=== PATIENT | female | born 1975 | race Caucasian/White ===

== ENCOUNTER 2018-04-28 15:48 | Day surgery (SDC) | payer OTHER ==
[~2018-04-28] VITALS: Ht 172.7 cm; Wt 96.2 kg
[~2018-04-28 15:48] MED LIST: DESV100T
[2018-04-28 16:00] VITALS: BP 161/81
--- OUTSIDE RECORDS SUMMARY | 2018-04-28 16:49 | XMS REPORT | Continuity of Care Document ---
Author Author [facility] Address Unknown Phone Unavailable Allergies Active Description Code Type Severity Reaction Onset Reported/Identified Relationship to Patient Clinical Status Yes Keflex Drug Allergy N/A N/A 04/20/2009 Yes lisinopril Drug Allergy N/A N/A 11/09/2010 Medications There is no data. Problems Date Dx Coded Attending Type Code Diagnosis Diagnosed By 04/20/2009 LUCAS VARELA DDS 296.90 EPISODIC MOOD DISORDERS 04/20/2009 LUCAS VARELA DDS 626.4 irregular length of menstrual periods 04/20/2009 LUCAS VARELA DDS 780.79 feelings of weakness 04/20/2009 YAMILETH FERRERA MD 296.90 EPISODIC MOOD DISORDERS 04/20/2009 YAMILETH FERRERA MD 626.4 irregular length of menstrual periods 04/20/2009 YAMILETH FERRERA MD 780.79 feelings of weakness 06/12/2009 LUCAS VARELA DDS 280.9 ANEMIA HYPOCHROMIC / MICROCYTIC 06/12/2009 LUCAS VARELA DDS 626.6 heavy bleeding between periods (metrorrhagia) 06/12/2009 LUCAS VARELA DDS V72.31 Pelvic Exam (Internal) 06/12/2009 YAMILETH FERRERA MD 280.9 ANEMIA HYPOCHROMIC / MICROCYTIC 06/12/2009 YAMILETH FERRERA MD 626.6 heavy bleeding between periods (metrorrhagia) 06/12/2009 YAMILETH FERRERA MD V72.31 Pelvic Exam (Internal) 07/11/2009 LUCAS VARELA DDS 401.1 ESSENTIAL HYPERTENSION BENIGN 07/11/2009 LUCAS VARELA DDS V72.84 visit for: preoperative exam 07/11/2009 YAMILETH FERRERA MD 401.1 ESSENTIAL HYPERTENSION BENIGN 07/11/2009 YAMILETH FERRERA MD V72.84 visit for: preoperative exam 05/17/2010 NICHOLE DDS, LUCAS B 381.81 EUSTACHIAN TUBE DYSFUNCTION 05/17/2010 NICHOLE DDS, LUCAS B 780.4 DIZZINESS AND VERTIGO 05/17/2010 NICHOLE DDS, LUCAS B 786.50 CHEST PAIN 05/17/2010 YAMILETH FERRERA MD 381.81 EUSTACHIAN TUBE DYSFUNCTION 05/17/2010 YAMILETH FERRERA MD 780.4 DIZZINESS AND VERTIGO 05/17/2010 YAMILETH FERRERA MD 786.50 CHEST PAIN 08/06/2010 NICHOLE DDS, LUCAS B 784.0 HEADACHE 08/06/2010 YAMILETH FERRERA MD 784.0 HEADACHE 10/03/2010 NICHOLE DDS, LUCAS B 527.5 SIALOLITHIASIS 10/03/2010 YAMILETH FERRERA MD 527.5 SIALOLITHIASIS 10/09/2010 NICHOLE DDS, LUCAS B V68.1 ISSUE OF REPEAT PRESCRIPTIONS 10/09/2010 YAMILETH FERRERA MD V68.1 ISSUE OF REPEAT PRESCRIPTIONS 04/25/2013 NICHOLE BIGGSS, LUCAS B 251.2 HYPOGLYCEMIA 04/25/2013 YAMILETH FERRERA MD 251.2 HYPOGLYCEMIA 01/16/2014 YAMILETH FERRERA MD 681.10 UNSPECIFIED CELLULITIS AND ABSCESS OF TOE 01/16/2014 YAMILETH FERRERA MD V06.1 TDAP DX Procedures Code [place] [address] ROUTINE VENIPUNCTURE 04/25/2013 29140 CBC 04/26/2013 5383794 GFR CALC (RESULT ONLY) 04/26/2013 80660 CMP 04/26/2013 16739 XRAY FOOT LEFT COMP MIN 3 VIEWS 01/16/2014 JERRY BEST 01/23/2014 Results Test Result Range CBC - 11/11/17 17:18 WHITE BLOOD CELL COUNT 12.0 Thousand/uL 3.8-10.8 RED BLOOD CELL COUNT 4.25 Million/uL 3.80-5.10 HEMOGLOBIN 14.1 g/dL 11.7-15.5 HEMATOCRIT 39.8 % 35.0-45.0 MCV 93.6 fL 80.0-100.0 MCH 33.2 pg 27.0-33.0 MCHC 35.4 g/dL 32.0-36.0 RDW 12.3 % 11.0-15.0 PLATELET COUNT 210 Thousand/uL 140-400 MPV 11.6 fL 7.5-12.5 ABSOLUTE NEUTROPHILS 8100 cells/uL 7221-2414 ABSOLUTE LYMPHOCYTES 2844 cells/uL 850-3900 ABSOLUTE MONOCYTES 960 cells/uL 200-950 ABSOLUTE EOSINOPHILS 60 cells/uL 15-500 ABSOLUTE BASOPHILS 36 cells/uL 0-200 NEUTROPHILS 67.5 % NRG LYMPHOCYTES 23.7 % NRG MONOCYTES 8.0 % NRG EOSINOPHILS 0.5 % NRG BASOPHILS 0.3 % NRG TSH - 11/11/17 17:18 TSH 1.52 mIU/L NRG LIPID PANEL - 11/17/17 12:47 CHOLESTEROL, TOTAL 173 mg/dL <200 HDL CHOLESTEROL 42 mg/dL >50 TRIGLYCERIDES 77 mg/dL <150 LDL-CHOLESTEROL 114 mg/dL (calc) NRG CHOL/HDLC RATIO 4.1 (calc) <5.0 NON HDL CHOLESTEROL 131 mg/dL (calc) <130 A1C - 11/17/17 12:47 HEMOGLOBIN A1c 4.5 % of total Hgb <5.7 CULTURE, GENITAL - 04/01/18 13:18 CULTURE, GENITAL SEE NOTE NRG Encounters ACCT No. Visit Date/Time Discharge Status Pt. Type Provider Facility Loc./Unit Complaint [id number] 01/16/2014 14:59:00 01/16/2014 23:59:59 CLS Outpatient SINGER FOSTER, YAMILETH Boykin [id number] 05/04/2013 15:06:00 05/04/2013 23:59:59 CLS Outpatient LUCAS VARELA DDS [id number] 02/02/2018 09:00:00 02/02/2018 23:59:59 CLS Outpatient YARI FORD [facility] [place] [id number] 04/01/2018 13:20:00 Document Registration [id number] 11/17/2017 12:20:00 Document Registration [id number] 11/11/2017 17:00:00 Document Registration
[2018-04-28] MEDS ORDERED: FLU QUADRIvalent (5+ YOA) 2018-2019 (AFLURIA) 0.5 ML IM ONE (17:15)
[2018-04-28 17:46] LABS: HEMOGLOBIN 9.4 G/DL (11.5-16.0)
--- NOTE | 2018-04-28 17:51 | Consultation ---
History of Present Illness History of Present Illness Patient Consulted On(chantell/time) 04/28/18 17:47 Date Seen by Provider: Apr 28, 2018 Time Seen by Provider: 17:05 Reason for Visit: epigastric discomfort with heartburn, followed by melena and dizziness History of Present Illness Reasonably healthy lady with hypertension controlled with resultant, developed epigastric discomfort and heartburn 24 hours ago, followed by melena and a feeling of dizziness. She sought medical evaluation this morning and was found to have anemia with a hemoglobin around 10 g and Hemoccult positive stools. She is therefore being admitted for further evaluation and monitoring. She reports substernal discomfort and has a family history of colon cancer in her father. Allergies and Home Medications Allergies Coded Allergies: cephalexin (Verified Allergy, Intermediate, rash, 04/28/18) latex (Unverified Allergy, Intermediate, HIVES AND SWELLING, 07/06/09) Patient Home Medication List Home Medication List Reviewed: Yes Past Iyvakks-Aaffeg-Cquvkq Hx Patient Social History Alcohol Use: Denies Use Recreational Drug Use: No Smoking Status: Never a Smoker Recent Foreign Travel: No Contact w/Someone Who Travel: No Recent Infectious Disease Expo: No Recent Hopitalizations: No Seasonal Allergies Seasonal Allergies: Yes Past Medical History Surgeries: Yes Respiratory: Yes Chronic Bronchitis Currently Using CPAP: No Currently Using BIPAP: No Neurological: No Reproductive Disorders: Yes (HYPERMENORRHEA, METROMENORRHAGIA, ANEMIA) Female Reproductive Disorders: Denies Sexually Transmitted Disease: No HIV/AIDS: No Genitourinary: No Gastrointestinal: No Musculoskeletal: No HEENT: No Cancer: No Anxiety, Depression Integumentary: No Blood Disorders: No Family Medical History NEROFIBROMATOUS 19 MOTHER Neoplasm 19 FATHER (INTESTINAL CA AND LUNG CA) Review of Systems-General Constitutional: dizziness, weakness Respiratory: no symptoms reported Cardiovascular: see HPI Gastrointestinal: see HPI Genitourinary: no symptoms reported Musculoskeletal: no symptoms reported Skin: no symptoms reported Psychiatric/Neurological: No Symptoms Reported Physical Exam-General Problems Physical Exam Vital Signs Vital Signs - First Documented 04/28/18 16:00 Temp 99.7 Pulse 92 Resp 18 B/P (MAP) 161/81 (107) Pulse Ox 98 O2 Delivery Room Air Capillary Refill : General Appearance: no apparent distress Respiratory: lungs clear Cardiovascular: regular rate, rhythm Gastrointestinal: non tender, soft Rectal: deferred Neurologic/Psychiatric: alert, oriented x 3 Skin: warm/dry Assessment/Plan Assessment/Plan Admission Diagnosis/Plan continue with epigastric discomfort melena and rectal bleeding. Anemia possibly of GI blood loss. Family history of colon cancer. Reasonable to perform upper endoscopy with colonoscopy during the hospital admission. Should her hemoglobin be less than 7 g, transfusion would be required and I have made her aware of this. Admission Status: Observation Clinical Quality Measures DVT/VTE Risk/Contraindication: Risk Factor Score Per Nursin RFS Level Per Nursing on Admit: 1=Low/No VTE PPX MATILDE AVALOS MD Apr 28, 2018 17:51
[2018-04-28 18:03] LABS: BUN/CREATININE RATIO 27; CARBON DIOXIDE 19 MMOL/L (21-32); CHLORIDE 109 MMOL/L (98-107); CREATININE SERUM 0.73 MG/DL (0.60-1.30); GFR ESTIMATED > 60; GLUCOSE 94 MG/DL (70-105); POTASSIUM 3.5 MMOL/L (3.6-5.0); SODIUM 137 MMOL/L (135-145)
[2018-04-28] MEDS: MAGNESIUM CITRATE 300 ML BTL PO NR (18:20)
[2018-04-28] MEDS ORDERED: CATHETER FLUSH 10 ML SYR IV PRN (18:45)
[2018-04-28 18:46] LABS: HEMOGLOBIN 9.3 G/DL (11.5-16.0); MEAN PLATELET VOLUME 12.1 FL (7.4-10.4); RED BLOOD COUNT 2.83 10^6/uL (4.35-5.85); RED CELL DISTRIBUTION WIDTH 12.6 % (10.0-14.5); WHITE BLOOD COUNT 11.3 10^3/uL (4.3-11.0)
[2018-04-28] MEDS: NS W/KCL 20 MEQ/L 1,000 ML IV SCH (19:30)
[2018-04-28 19:35] VITALS: BP 133/67
[2018-04-29 00:04] VITALS: BP 140/67
[2018-04-29 04:06] VITALS: BP 123/60
[2018-04-29] MEDS: NS W/KCL 20 MEQ/L 1,000 ML IV SCH ×2 (05:54→16:04)
[2018-04-29] MEDS: MAGNESIUM CITRATE 300 ML BTL PO NR ×2 (06:13→16:04)
[2018-04-29] MEDS ORDERED: KCL 20 MEQ TAB (K-DUR) PO NR (07:45)
[2018-04-29 08:00] VITALS: BP 126/65
--- NOTE | 2018-04-29 08:21 | Progress Note (SOAP) ---
Subjective Date Seen by a Provider: Apr 29, 2018 Time Seen by a Provider: 08:00 Subjective/Events-last exam bowel prep in preparation. Stools are dark. Hemoglobin decreased to 9.3 g. Hemodynamics stable. Minimal epigastric pain. Review of Systems General: Fatigue HEENT: No Head Aches, No Eye Pain, No Ear Pain, No Dysphasia, No Sinus Congestion, No Post Nasal Drip, No Sore Throat Pulmonary: No Dyspnea, No Cough, No Pleuritic Chest Pain Cardiovascular: No: Chest Pain, Palpitations, Orthopnea, Paroxysmal Noc. Dyspnea, Edema, Lt Headedness Gastrointestinal: Melena Genitourinary: No Dysuria, No Frequency, No Incontinence, No Hematuria, No Retention Musculoskeletal: No: other, neck pain, shoulder pain, arm pain, back pain, hand pain, leg pain, foot pain Neurological: No: Weakness, Numbness, Incoordination, Change in speech, Confusion, Seizures, Other Objective Exam Vital Signs Date Time Temp Pulse Resp B/P (MAP) Pulse Ox O2 Delivery O2 Flow Rate FiO2 04/29/18 04:06 98.3 82 17 123/60 (81) 98 Room Air 04/29/18 00:04 99.1 77 18 140/67 (91) 99 Room Air 04/28/18 21:00 98 Room Air 04/28/18 19:35 98.0 93 18 133/67 (89) 98 Room Air 04/28/18 17:08 98 Room Air 04/28/18 16:00 99.7 92 18 161/81 (107) 98 Room Air I & O 04/29/18 07:00 Intake Total 750 ml Output Total 200 ml Balance 550 ml Capillary Refill : General Appearance: No Apparent Distress Neck: Normal Inspection Respiratory: Lungs Clear Gastrointestinal: non tender, soft Extremity: Normal Inspection Neurologic/Psychiatric: Alert, Oriented x3 Skin: Warm/Dry Results Lab Laboratory Tests 04/28/18 17:37: White Blood Count 11.3H, Red Blood Count 2.83L, Hemoglobin 9.3L, Hematocrit 27L , Mean Corpuscular Volume 95, Mean Corpuscular Hemoglobin 33, Mean Corpuscular Hemoglobin Concent 35, Red Cell Distribution Width 12.6, Platelet Count 167, Mean Platelet Volume 12.1H, Sodium Level 137, Potassium Level 3.5L, Chloride Level 109H, Carbon Dioxide Level 19L, Anion Gap 9, Blood Urea Nitrogen 20H, Creatinine 0.73, Estimat Glomerular Filtration Rate > 60, BUN/Creatinine Ratio 27, Glucose Level 94, Calcium Level 9.0 Assessment/Plan Assessment/Plan Assess & Plan/Chief Complaint continue with epigastric discomfort melena and rectal bleeding. Anemia possibly of GI blood loss. Family history of colon cancer. Reasonable to perform upper endoscopy with colonoscopy during the hospital admission. Should her hemoglobin be less than 7 g, transfusion would be required and I have made her aware of this. lady with a history of melena and anemia due to blood loss. Hemodynamics stable. Family history of colon cancer. 4 EGD with colonoscopy tomorrow ; reasonable to start proton pump inhibitors in view of melena Final Diagnosis GI bleeding with anemia Clinical Quality Measures DVT/VTE Risk/Contraindication: Risk Factor Score Per Nursin RFS Level Per Nursing on Admit: 1=Low/No VTE PPX MATILDE AVALOS MD Apr 29, 2018 08:21
[2018-04-29] MEDS: PANTOPRAZOLE 40 MG (PROTONIX) VIAL IV SCH ×2 (08:51→20:24)
[2018-04-29] MEDS ORDERED: ACETAMINOPHEN 500 MG TAB (TYLENOL) PO PRN (09:00)
[2018-04-29] MEDS ORDERED: LOSA50TA7 PO (09:03)
[2018-04-29] MEDS ORDERED: NAPR220T66 PO (09:03)
[2018-04-29] MEDS ORDERED: ESCI10TA PO (09:03)
[2018-04-29] MEDS ORDERED: ACET-2267 PO (09:03)
[2018-04-29 12:00] VITALS: BP 126/58
[2018-04-29] MEDS ORDERED: ACETAMINOPHEN 325 MG TABLET PO PRN (12:15)
--- NOTE | 2018-04-29 12:16 | History & Physicial (CHS) ---
HPI History of Present Illness: This is a 42 yo female who was seen at [facility] by Lilian Olea APRN on 04/28/18. Pt reports that Thursday she began noticing black, tarry stools. Pt had a near- syncopal episode on Thursday. Pt has had issues with constipations for the past 2 years but no prior issues with GI bleeding. Pt was seen yesterday and noted to have heme positive stools and HB was 10.0. Pt also admits to epigastric pain. Pt was admitted for observation and surgical consultation due to symptomatic anemia and melena. Date seen by provider: Apr 29, 2018 Time Seen by Provider: 09:10 Attending Physician Kashmir Humphries DO [facility] [place] Consult Date of Admission Apr 28, 2018 at 15:48 Home Medications Home Medications Reviewed patient Home Medication Reconciliation performed by pharmacy medication reconciliations communications engineering technician and/or nursing. Patients Allergies have been reviewed. Allergies Coded Allergies: cephalexin (Verified Allergy, Intermediate, rash, 04/28/18) latex (Unverified Allergy, Intermediate, HIVES AND SWELLING, 07/06/09) LSC-Exeixg-Pbgfmz Hx Patient Social History Alcohol Use: Denies Use Recreational Drug Use: No Smoking Status: Never a Smoker Recent Foreign Travel: No Contact w/other who traveled: No Recent Hopitalizations: No Recent Infectious Disease Expo: No Physical Abuse Screen: No Sexual Abuse: No Past Medical History HTN Anxiety s/p REBECA for menorrhagia s/p tubal ligation s/p EGD in Family Medical History Family History: NEROFIBROMATOUS 19 MOTHER Neoplasm 19 FATHER (INTESTINAL CA AND LUNG CA) Review of Systems ([facility]) Constitutional: see HPI Reviewed Test Results Reviewed Test Results Lab Laboratory Tests 04/28/18 17:37: White Blood Count 11.3H, Red Blood Count 2.83L, Hemoglobin 9.3L, Hematocrit 27L , Mean Corpuscular Volume 95, Mean Corpuscular Hemoglobin 33, Mean Corpuscular Hemoglobin Concent 35, Red Cell Distribution Width 12.6, Platelet Count 167, Mean Platelet Volume 12.1H, Sodium Level 137, Potassium Level 3.5L, Chloride Level 109H, Carbon Dioxide Level 19L, Anion Gap 9, Blood Urea Nitrogen 20H, Creatinine 0.73, Estimat Glomerular Filtration Rate > 60, BUN/Creatinine Ratio 27, Glucose Level 94, Calcium Level 9.0 Physical Exam-(CHC) Physical Exam Vital Signs VS - Last 72 Hours, by Label 04/28/18 04/28/18 04/28/18 04/28/18 16:00 17:08 19:35 21:00 Temp 99.7 98.0 Pulse 92 93 Resp 18 18 B/P (MAP) 161/81 (107) 133/67 (89) Pulse Ox 98 98 98 98 O2 Delivery Room Air Room Air Room Air Room Air 04/29/18 04/29/18 00:04 04:06 Temp 99.1 98.3 Pulse 77 82 Resp 18 17 B/P (MAP) 140/67 (91) 123/60 (81) Pulse Ox 99 98 O2 Delivery Room Air Room Air Capillary Refill : General Appearance: WD/WN, no apparent distress HEENT: PERRL/EOMI Respiratory: chest non-tender, lungs clear, normal breath sounds Cardiovascular: regular rate, rhythm Gastrointestinal: other (mild ttp LLQ) Neurologic/Psychiatric: alert, normal mood/affect, oriented x 3 Assessment/Plan Assessment/Plan Admission Status: Observation Assessment & Plan 1. Melena with epigastric abdominal pain - Patient directly admitted for observation - Surgical consultation by Dr. Morgan who recommends EGD/Colonoscopy. Bowel prep underway, plan for procedures 04/30/18 - PPI started 2. Symptomatic anemia - likely acute GI blood loss - baseline Hb 10/2017 14.1 - Hb on admission 9.3 3. Near syncopal episode - likely secondary to #1 & 2 Clinical Quality Measures DVT/VTE Risk/Contraindication: Risk Factor Score Per Nursin RFS Level Per Nursing on Admit: 1=Low/No VTE PPX KASHMIR HUMPHRIES DO Apr 29, 2018 12:16
[2018-04-29] MEDS ORDERED: NON-FORMULARY MEDICATION 1 EA EA (Escitalopram Oxalate (Lexapro) 10 MG) PO SCH (12:30)
[2018-04-29 16:28] VITALS: BP 129/61
[2018-04-29 19:37] VITALS: BP 130/65
[2018-04-30 00:55] VITALS: BP 120/58
[2018-04-30] MEDS: NS W/KCL 20 MEQ/L 1,000 ML IV SCH ×2 (01:25→11:18)
[2018-04-30 04:01] VITALS: BP 121/58
[2018-04-30 05:51] LABS: BASOPHILS % (AUTO) 0 % (0-10); EOSINOPHILS % (AUTO) 1 % (0-10); HEMATOCRIT 25 % (35-52); HEMOGLOBIN 8.2 G/DL (11.5-16.0); LYMPHOCYTES # (AUTO) 1.4 X 10^3 (1.0-4.0); LYMPHOCYTES % (AUTO) 23 % (12-44); MEAN CORPUSCULAR HEMOGLOBIN 32 PG (25-34); MEAN CORPUSCULAR HGB CONC 34 G/DL (32-36); MEAN CORPUSCULAR VOLUME 97 FL (80-99); MEAN PLATELET VOLUME 12.1 FL (7.4-10.4); MONOCYTES # (AUTO) 0.5 X 10^3 (0.0-1.0); MONOCYTES % (AUTO) 9 % (0-12); NEUTROPHILS # (AUTO) 3.9 X 10^3 (1.8-7.8); NEUTROPHILS % (AUTO) 67 % (42-75); PLATELET COUNT 108 10^3/uL (130-400); RED BLOOD COUNT 2.54 10^6/uL (4.35-5.85); RED CELL DISTRIBUTION WIDTH 12.9 % (10.0-14.5); WHITE BLOOD COUNT 5.8 10^3/uL (4.3-11.0)
[2018-04-30 08:00] VITALS: BP 128/61
[2018-04-30 08:52] LABS: CALCIUM 8.4 MG/DL (8.5-10.1); CARBON DIOXIDE 18 MMOL/L (21-32); CHLORIDE 115 MMOL/L (98-107); CREATININE SERUM 0.61 MG/DL (0.60-1.30); GFR ESTIMATED > 60; GLUCOSE 86 MG/DL (70-105); POTASSIUM 4.2 MMOL/L (3.6-5.0); SODIUM 139 MMOL/L (135-145)
[2018-04-30] MEDS ORDERED: NON-FORMULARY MEDICATION 1 EA EA (Losartan Potassium 50 MG) PO SCH (09:00)
[2018-04-30] MEDS ORDERED: NON-FORMULARY MEDICATION 1 EA EA (Escitalopram Oxalate (Lexapro) 10 MG) PO SCH (09:00)
[2018-04-30 09:06] LABS: BUN/CREATININE RATIO 11
[2018-04-30] MEDS: PANTOPRAZOLE 40 MG (PROTONIX) VIAL IV SCH ×2 (09:16→20:51)
[2018-04-30] MEDS ORDERED: OMEP40CA36 PO (11:14)
[2018-04-30] MEDS ORDERED: FERR-65 PO (11:14)
--- NOTE | 2018-04-30 11:16 | Discharge Summary ---
Diagnosis/Chief Complaint Date of Admission Apr 28, 2018 at 15:48 Date of Discharge May 01, 2018 Admission Diagnosis Admission Diagnosis 1. Melena with epigastric abdominal pain 2. Symptomatic anemia - likely acute GI blood loss 3. Near syncopal episode - likely secondary to #1 & 2 Discharge Diagnosis 1. Melena with epigastric abdominal pain - Patient directly admitted for observation - Surgical consultation by Dr. Morgan who recommends EGD/Colonoscopy. Bowel prep underway, plan for procedures 04/30/18 - PPI started 2. Symptomatic anemia - likely acute GI blood loss - baseline Hb 10/2017 14.1 - Hb on admission 9.3 - Hb on DC stable at 8.4 3. Near syncopal episode - likely secondary to #1 & 2 4. Multiple petechia and erosions along the stomach . 3 mm acute erosion with oozing in the first part of the duodenum - rx for PPI and carafate 5. Colon polyps - lesion at the cecum concerning for villous adenoma -schedule for colon resection next week. Chief Complaint/HPI Chief Complaint/HPI This is a 42 yo female who was seen at [facility] by Lilian Olea APRN on 04/28/18. Pt reports that Thursday she began noticing black, tarry stools. Pt had a near- syncopal episode on Thursday. Pt has had issues with constipations for the past 2 years but no prior issues with GI bleeding. Pt was seen yesterday and noted to have heme positive stools and HB was 10.0. Pt also admits to epigastric pain. Pt was admitted for observation and surgical consultation due to symptomatic anemia and melena. Discharge Summary-OBS Procedures EGD/Colonoscopy 04/30/18: EGD: Multiple petechia and erosions along the stomach . 3 mm acute erosion with oozing in the first part of the duodenum Colonoscopy: 1. 3 mm pedunculated polyp along the descending colon, that was snared and retrieved. 2. A sessile lesion at the cecum, occupying at least three fourths of the circumference, having the appearance of a villous adenoma. A few biopsies were obtained in the area was tattooed with Julieth ink, for identification during resection. She tolerated the procedures well and was taken to the recovery room in a stable condition. Impression: GI bleeding. Family history of colon cancer. Sessile lesion of the cecum, possibly a villous adenoma. This will require formal right hemicolectomy, that will be scheduled for next week. Descending colon polyp excised. Consultations Discharge Physical Examination Allergies: Coded Allergies: cephalexin (Verified Allergy, Intermediate, rash, 04/28/18) latex (Unverified Allergy, Intermediate, HIVES AND SWELLING, 07/06/09) Vitals & I&Os Intake and Output 04/30/18 00:00 Intake Total 2996 ml Output Total 1400 ml Balance 1596 ml Vital Sign - Last 12Hours Date Time Temp Pulse Resp B/P (MAP) Pulse Ox O2 Delivery O2 Flow Rate FiO2 04/30/18 08:00 99.3 77 20 128/61 (83) 99 Room Air General Appearance: Alert, Oriented X3, Cooperative Psych/Mental Status: Mood NL Hospital Course Labs Laboratory Tests 04/30/18 05:36: White Blood Count 5.8, Red Blood Count 2.54L, Hemoglobin 8.2L, Hematocrit 25L, Mean Corpuscular Volume 97, Mean Corpuscular Hemoglobin 32, Mean Corpuscular Hemoglobin Concent 34, Red Cell Distribution Width 12.9, Platelet Count 108L, Mean Platelet Volume 12.1H, Neutrophils (%) (Auto) 67, Lymphocytes (%) (Auto) 23 , Monocytes (%) (Auto) 9, Eosinophils (%) (Auto) 1, Basophils (%) (Auto) 0, Neutrophils # (Auto) 3.9, Lymphocytes # (Auto) 1.4, Monocytes # (Auto) 0.5, Eosinophils # (Auto) 0.0, Basophils # (Auto) 0.0, Sodium Level 139, Potassium Level 4.2, Chloride Level 115H, Carbon Dioxide Level 18L, Anion Gap 6, Blood Urea Nitrogen 7, Creatinine 0.61, Estimat Glomerular Filtration Rate > 60, BUN/ Creatinine Ratio 11, Glucose Level 86, Calcium Level 8.4L Discharge Instructions to patient/family Discharge [facility] Discharge Medications New, Converted or Re-Newed RX: Transmitted to Pharmacy ([facility]) New Medications: Ferrous Sulfate (Feosol) 325 Mg Tablet 325 MG PO BID, #60 TAB 0 Refills Omeprazole (Omeprazole) 40 Mg Capsule.dr 40 MG PO DAILY, #30 CAP 0 Refills Sucralfate (Sucralfate) 1 Gm Tablet 1 GM PO TID, #90 TAB 0 Refills Continued Medications: Acetaminophen (Tylenol Extra Strength) 500 Mg Tablet 500-1000 MG PO Q6H PRN for PAIN-MILD, TAB Escitalopram Oxalate (Lexapro) 10 Mg Tablet 10 MG PO DAILY, TAB LAST FILLED #30 03-03-18 Losartan Potassium (Losartan Potassium) 50 Mg Tablet 50 MG PO DAILY, TAB LAST FILLED #30 03-03-18 Discontinued Medications: Naproxen Sodium (Aleve) 220 Mg Tablet 220-440 MG PO Q8H PRN for PAIN-MILD, TAB Patient Instructions Goal/Follow Up Appt: Follow up with Lilian Olea APRN 05/11/18 11:20am Activity & Diet Discharge Diet: Other Diet (high fiber diet) Orders-Post D/C & Referrals Pneu Vac Indicated: Yes Discharge Medications Reviewed and agree with Discharge Medication list on patient's Discharge Instruction sheet Clinical Quality Measures DVT/VTE Risk/Contraindication: Risk Factor Score Per Nursin RFS Level Per Nursing on Admit: 1=Low/No VTE PPX KASHMIR HUMPHRIES DO Apr 30, 2018 11:16
[2018-04-30 12:00] VITALS: BP 126/61
[2018-04-30] MEDS ORDERED: NS IV 500 ML 500 ML IV PRN (12:24)
[2018-04-30] MEDS ORDERED: HURRICAINE EXT TUBE (BENZOCAINE) XX PRN (12:30)
[2018-04-30] MEDS ORDERED: MIDAZOLAM 2 MG/2 ML (VERSED) VIAL IVP ONE (12:30)
[2018-04-30] MEDS ORDERED: fentaNYL INJECTION 100 MCG/2 ML AMP IVP ONE (12:30)
[2018-04-30] MEDS ORDERED: MIDAZOLAM 2 MG/2 ML (VERSED) VIAL ONE ×3 (12:35)
[2018-04-30] MEDS ORDERED: fentaNYL INJECTION 100 MCG/2 ML AMP ONE (12:35)
[2018-04-30] MEDS ORDERED: HURRICAINE EXT TUBE (BENZOCAINE) ONE (12:35)
[2018-04-30] MEDS ORDERED: NS IV 500 ML 500 ML ONE (12:36)
[2018-04-30] MEDS ORDERED: EPINEPHrine INJECTION 1 MG/ML AMP ONE (12:45)
[2018-04-30] MEDS ORDERED: EPINEPHrine INJECTION 1 MG/ML AMP IV PRN (14:15)
--- NOTE | 2018-04-30 15:14 | Endo Procedure Record ---
Endo Procedure Report Date of Procedure Last Colonoscopy: No Apr 30, 2018 Surgeon (s) MATILDE AVALOS MD Post Procedure/Op Diagnosis EGD: Multiple petechia and erosions along the stomach . 3 mm acute erosion with oozing in the first part of the duodenum Colonoscopy: 3 mm polyp at the descending colon Sessile lesion at the cecum, having the appearance of a villous adenoma Procedure Performed EGD with antral biopsy for H. pylori Sclerotherapy of the lesion in the duodenum with 1 in 10,000 epinephrine Colonoscopy to cecum Snare polypectomy of descending colon polyp Biopsy of cecal lesion Tattooing of lesion at the cecum Description of Procedure Anesthesia Type: Conscious Sedation Specimen(s) collected/removed Antral mucosa for H. pylori. Polyp from the descending colon. Fragments of the sessile lesion from the cecum Description of the Procedure Indication for the procedures: This lady has been admitted with acute anemia due to GI blood loss. She has a significant family history of colon cancer. Therefore, she was offered upper endoscopy with colonoscopy for diagnosis with therapeutic intent. Informed consent was obtained after reviewing the procedures in detail. Description of the procedures: EGD/antral biopsy/sclerotherapy: She was placed in left lateral decubitus position and her vital signs were monitored. Conscious sedation was achieved using Versed and fentanyl. The flexible gastroscope was then introduced down the esophagus, past the stomach, into the proximal duodenum. Findings: Esophagus: Normal. Stomach: Multiple petechia and shallow erosions without any active bleeding. An antral biopsy was obtained for H. pylori. Duodenum: The 3 mm area of acute erosion with slight oozing on the surface. Sclerotherapy was achieved using 1 in 10,000 epinephrine with adequate blanching. She tolerated the procedure well and was turned around in preparation for colonoscopy. Impression: GI bleeding: Multiple petechia and erosions along the stomach. 3 mm acute erosion in the duodenum. Sclerotherapy completed Colonoscopy: Digital rectal examination was unremarkable. The colonoscope was then introduced into the rectum and advanced to the cecum. It was then withdrawn slowly and the mucosa examined in a systematic fashion Findings: 1. 3 mm pedunculated polyp along the descending colon, that was snared and retrieved. 2. A sessile lesion at the cecum, occupying at least three fourths of the circumference, having the appearance of a villous adenoma. A few biopsies were obtained in the area was tattooed with Julieth ink, for identification during resection. She tolerated the procedures well and was taken to the recovery room in a stable condition. Impression: GI bleeding. Family history of colon cancer. Sessile lesion of the cecum, possibly a villous adenoma. This will require formal right hemicolectomy, that will be scheduled for next week. Descending colon polyp excised. Copy Copies To 1: KASHMIR HUMPHRIES XAVIER M MD Apr 30, 2018 15:14
[2018-04-30 16:20] VITALS: BP 129/69
[2018-04-30] MEDS: LOSARTAN 50 MG (COZAAR) TAB PO SCH (16:55)
[2018-04-30 19:25] VITALS: BP 136/62
[2018-04-30] MEDS: SUCRALFATE 1 GM (CARAFATE) TAB PO SCH (20:51)
[2018-05-01] VITALS: BP_SYST 116; BP_SYST 128; BP_DIAS 58; BP_DIAS 59
[2018-05-01 04:00] VITALS: BP 118/57
[2018-05-01 06:57] LABS: BASOPHILS % (AUTO) 0 % (0-10); EOSINOPHILS # (AUTO) 0.1 10^3/uL (0.0-0.3); EOSINOPHILS % (AUTO) 1 % (0-10); HEMATOCRIT 24 % (35-52); HEMOGLOBIN 8.4 G/DL (11.5-16.0); LYMPHOCYTES # (AUTO) 1.6 X 10^3 (1.0-4.0); LYMPHOCYTES % (AUTO) 16 % (12-44); MEAN CORPUSCULAR HEMOGLOBIN 33 PG (25-34); MEAN CORPUSCULAR HGB CONC 35 G/DL (32-36); MEAN CORPUSCULAR VOLUME 96 FL (80-99); MEAN PLATELET VOLUME 11.9 FL (7.4-10.4); MONOCYTES % (AUTO) 10 % (0-12); NEUTROPHILS # (AUTO) 7.4 X 10^3 (1.8-7.8); NEUTROPHILS % (AUTO) 74 % (42-75); PLATELET COUNT 183 10^3/uL (130-400); RED BLOOD COUNT 2.53 10^6/uL (4.35-5.85); RED CELL DISTRIBUTION WIDTH 13.4 % (10.0-14.5)
[2018-05-01 08:00] VITALS: BP 130/63
[2018-05-01] MEDS: PANTOPRAZOLE 40 MG (PROTONIX) VIAL IV SCH (08:28)
[2018-05-01] MEDS ORDERED: PANTOPRAZOLE 40 MG (PROTONIX) TAB PO ONE (08:30)
[2018-05-01] MEDS: LOSARTAN 50 MG (COZAAR) TAB PO SCH (09:04)
[2018-05-01] MEDS: SUCRALFATE 1 GM (CARAFATE) TAB PO SCH ×2 (09:04→13:30)
[2018-05-01 12:00] VITALS: BP 122/68
[2018-05-01] MEDS ORDERED: SUCR1TAB PO (12:07)
--- NOTE | 2018-05-01 12:10 | Discharge Instructions ---
Discharge [facility] Discharge Medications New, Converted or Re-Newed RX: Transmitted to Pharmacy ([facility]) New Medications: Ferrous Sulfate (Feosol) 325 Mg Tablet 325 MG PO BID, #60 TAB 0 Refills Omeprazole (Omeprazole) 40 Mg Capsule.dr 40 MG PO DAILY, #30 CAP 0 Refills Sucralfate (Sucralfate) 1 Gm Tablet 1 GM PO TID, #90 TAB 0 Refills Continued Medications: Acetaminophen (Tylenol Extra Strength) 500 Mg Tablet 500-1000 MG PO Q6H PRN for PAIN-MILD, TAB Escitalopram Oxalate (Lexapro) 10 Mg Tablet 10 MG PO DAILY, TAB LAST FILLED #30 03-03-18 Losartan Potassium (Losartan Potassium) 50 Mg Tablet 50 MG PO DAILY, TAB LAST FILLED #30 03-03-18 Discontinued Medications: Naproxen Sodium (Aleve) 220 Mg Tablet 220-440 MG PO Q8H PRN for PAIN-MILD, TAB Patient Instructions Goal/Follow Up Appt: Follow up with Lilian Olea APRN 05/11/18 11:20am Activity & Diet Discharge Diet: Other Diet (high fiber diet) Orders-Post D/C & Referrals Pneu Vac Indicated: Yes KASHMIR HUMPHRIES DO May 01, 2018 12:10
--- NOTE | 2018-05-01 12:13 | Progress Note (SOAP) ---
Subjective Date Seen by a Provider: May 01, 2018 Time Seen by a Provider: 11:00 Subjective/Events-last exam Patient seen with Dr. Webb. Patient reports doing well. Tolerating diet and ambulating. No abdominal pain. No N/V. No Fever/chills. Objective Exam Vital Signs Date Time Temp Pulse Resp B/P (MAP) Pulse Ox O2 Delivery O2 Flow Rate FiO2 05/01/18 08:00 98.3 82 16 130/63 (85) 99 Room Air 05/01/18 04:00 98.9 76 18 118/57 (77) 97 Room Air 05/01/18 00:00 98.9 76 16 116/59 (78) 98 Room Air 04/30/18 19:25 99.1 90 20 136/62 (86) 98 Room Air 04/30/18 16:20 99.8 88 18 129/69 (89) 97 Room Air I & O 05/01/18 07:00 Intake Total 1100 ml Output Total 300 ml Balance 800 ml Capillary Refill : General Appearance: No Apparent Distress, WD/WN Respiratory: Chest Non Tender, Lungs Clear, Normal Breath Sounds, No Accessory Muscle Use, No Respiratory Distress Cardiovascular: Regular Rate, Rhythm, No Edema Gastrointestinal: normal bowel sounds, soft, tenderness (RLQ) Extremity: Normal Capillary Refill, Normal Inspection, Normal Range of Motion Neurologic/Psychiatric: Alert, Oriented x3 Skin: Normal Color, Warm/Dry Results Lab Laboratory Tests 05/01/18 06:05: White Blood Count 10.0, Red Blood Count 2.53L, Hemoglobin 8.4L, Hematocrit 24L, Mean Corpuscular Volume 96, Mean Corpuscular Hemoglobin 33, Mean Corpuscular Hemoglobin Concent 35, Red Cell Distribution Width 13.4, Platelet Count 183, Mean Platelet Volume 11.9H, Neutrophils (%) (Auto) 74, Lymphocytes (%) (Auto) 16 , Monocytes (%) (Auto) 10, Eosinophils (%) (Auto) 1, Basophils (%) (Auto) 0, Neutrophils # (Auto) 7.4, Lymphocytes # (Auto) 1.6, Monocytes # (Auto) 1.0, Eosinophils # (Auto) 0.1, Basophils # (Auto) 0.0 Assessment/Plan Assessment/Plan Assess & Plan/Chief Complaint A 42 year old female with anemia and GI bleed. S/P EGD and Colonoscopy. VSS and labs stable. May be DC'd home when ok with PCP. Clinical Quality Measures DVT/VTE Risk/Contraindication: Risk Factor Score Per Nursin RFS Level Per Nursing on Admit: 1=Low/No VTE PPX ALBERT MCGEE APRN May 01, 2018 12:13 pm
[2018-05-02] MEDS ORDERED: PANTOPRAZOLE 40 MG (PROTONIX) TAB PO SCH (07:00)
--- OUTSIDE RECORDS SUMMARY | 2018-05-04 14:45 | XMS REPORT ---
Author Author YARI FORD [facility] Address [address] [place] [address] Care Team Providers Care Valet Name Role Phone CLAY FORDTA Unavailable PROBLEMS Type Condition ICD9-CM Code VUU34-DU Code Onset Dates Condition Status SNOMED Code Problem Primary insomnia F51.01 Active 0680770 Problem Dysthymia F34.1 Active 04852621 Problem Essential hypertension I10 Active 80784043 ALLERGIES No Information ENCOUNTERS Encounter Location Date Diagnosis [place] [address] [address] Mar, [place] [address] [address] Mar, Rectal bleeding K62.5 [place] [address] [address] Mar, Dysuria R30.0 ; Screening for STD (sexually transmitted disease) Z11.3 and Vaginal candidiasis B37.3 [place] [address] [place] [id number] [place] [address] Feb, Essential hypertension I10 and Dysthymia F34.1 [place] [address] [address] Jan, Essential hypertension I10 ; Dysthymia F34.1 and Subacromial impingement of left shoulder M75.42 [place] [address] [address] Dec, Subacromial impingement of left shoulder M75.42 and Spasm of muscle, back M62.830 [place] [address] [address] Dec, Essential hypertension I10 [facility] [address] [address] Dec, Essential hypertension I10 ; Dysthymia F34.1 ; Primary insomnia F51.01 and Seasonal allergic rhinitis, unspecified trigger J30.2 [facility] [address], [place] [address] Nov, 2017 Essential hypertension I10 and Dysthymia F34.1 [facility] [address] [place] [id number] [address] October, [facility] [address] [place] [id number] [place] [address] October, Essential hypertension I10 [facility] [address] [place] [id number] [place] [address] October, Essential hypertension I10 [facility] [address] [place] [id number] [place] [address] Sep, [facility] [address], [place] [address] Sep, [facility] [address] [place] [address] Dec, [facility] [address] [address] Dec, [facility] [address] [address] Mar, [facility] [address] [place] [address] Mar, [facility] [address] [address] Mar, [facility] [address] [place] [id number] [place] [address] Nov, [facility] [address] [address] Nov, [facility] [address] [place] [id number] [address] 13 Sep, 2010 [facility] [address] [address] Apr, [facility] [address] [address] Apr, [facility] [address] [address] Apr, [facility] [address] Jun, [facility] [address] [address] May, [facility] [address] [address] May, [facility] [address] [address] Mar, [facility] [address] [address] Mar, [facility] [address] [place] [id number] [address] Mar, IMMUNIZATIONS No Known Immunizations SOCIAL HISTORY Never Assessed REASON FOR VISIT returned call PLAN OF CARE VITAL SIGNS MEDICATIONS Unknown Medications RESULTS No Results PROCEDURES No Known procedures INSTRUCTIONS MEDICATIONS ADMINISTERED No Known Medications MEDICAL (GENERAL) HISTORY Type Description Date Medical History HTN Medical History Hypoglycemia, unspecified Medical History Hypoglycemia, unspecified Medical History Unspecified cellulitis and abscess of toe Surgical History tubal ligation 2004 Surgical History partial hyst 2007 Surgical History tonsillectomy (child) Surgical History foot surgery 2015 Hospitalization History surgery related
--- OUTSIDE RECORDS SUMMARY | 2018-05-04 14:45 | XMS REPORT ---
Author Author YARI FORD [facility] Address [address] [place] [address] Care Team Providers Care Blueberry Grower Name Role Phone CLAY FORDTA Unavailable PROBLEMS Type Condition ICD9-CM Code [id number] Code Onset Dates Condition Status SNOMED Code Problem Primary insomnia F51.01 Active 5266078 Problem Dysthymia F34.1 Active 33317132 Problem Essential hypertension I10 Active 42578383 ALLERGIES Substance Reaction Event Type Date Status Keflex rash Drug Allergy Mar, Active Latex rash Non Drug Allergy Mar, Active ENCOUNTERS Encounter Location Date Diagnosis [place] [address] [address] Apr, [place] [address] [address] Mar, [place] [address] [address] Mar, Rectal bleeding K62.5 [place] [address] [address] Mar, Dysuria R30.0 ; Screening for STD (sexually transmitted disease) Z11.3 and Vaginal candidiasis B37.3 [place] [address] [address] Feb, Essential hypertension I10 and Dysthymia F34.1 [place] [address] [address] Jan, Essential hypertension I10 ; Dysthymia F34.1 and Subacromial impingement of left shoulder M75.42 [place] [address] [address] 20 George, 2018 Subacromial impingement of left shoulder M75.42 and Spasm of muscle, back M62.830 [facility] [address] [place] [id number] [place] [address] Dec, Essential hypertension I10 [facility] [address] [place] [id number] [place] [address] Dec, Essential hypertension I10 ; Dysthymia F34.1 ; Primary insomnia F51.01 and Seasonal allergic rhinitis, unspecified trigger J30.2 [facility] [address] [place] [id number] [place] [address] Nov, Essential hypertension I10 and Dysthymia F34.1 [facility] [address] [place] [id number] [place] [address] October, [facility] [address] [place] [id number] [place] [address] October, Essential hypertension I10 [facility] [address] [place] [id number] [place] [address] October, Essential hypertension I10 [facility] [address] [place] [id number] [place] [address] Sep, [facility] [address] [place] [id number] [place] [address] Sep, [facility] [address] [place] [address] Dec, [facility] [address] [place] [id number] [place] [address] Dec, [facility] [address] [place] [id number] [place] [address] Mar, [facility] [address] [place] [address] Mar, [facility] [address] [place] [id number] [place] [address] Mar, [facility] [address] [place] [id number] [place] [address] Nov, [facility] [address] [place] [id number] [address] Nov, [facility] [address] [address] Sep, [facility] [address] [address] Apr, [facility] [address] Apr, [facility] [address] Apr, [facility] [address] [address] Jun, [facility] [address] May, [facility] [address] [address] May, [facility] [address] [address] Mar, [facility] [address] [address] Mar, [facility] [address] [place] [id number] [address] Mar, IMMUNIZATIONS No Known Immunizations SOCIAL HISTORY Never Assessed REASON FOR VISIT irregular bowels, black-bloody stools since Thursday, was dizzy last night Cora Velazquez MA PLAN OF CARE Activity Details Follow Up pending hospital findings Reason: VITAL SIGNS Height 68 in 2018-04-28 Weight 212.2 lbs 2018-04-28 Temperature 97.1 degrees Fahrenheit 2018-04-28 Heart Rate 89 bpm 2018-04-28 Respiratory Rate 20 2018-04-28 BMI 32.26 kg/m2 2018-04-28 Blood pressure systolic 142 mmHg 2018-04-28 Blood pressure diastolic 84 mmHg 2018-04-28 MEDICATIONS Medication Instructions Dosage Frequency Start Date End Date Duration Status Lexapro 10 mg Orally Once a day 1 tablet 24h Jan, 30 day(s) Active Fluticasone Propionate 50 MCG/ACT Nasally Once a day 1 spray in each nostril 24h Dec, 30 day(s) Active Losartan Potassium 50 mg Orally Once a day 1 tablet 24h 30 days Active RESULTS No Results PROCEDURES No Known procedures INSTRUCTIONS MEDICATIONS ADMINISTERED No Known Medications MEDICAL (GENERAL) HISTORY Type Description Date Medical History HTN Medical History Hypoglycemia, unspecified Medical History Hypoglycemia, unspecified Medical History Unspecified cellulitis and abscess of toe Surgical History tubal ligation 2003 Surgical History partial hyst 2006 Surgical History tonsillectomy (child) Surgical History foot surgery 2014 Hospitalization History surgery related
--- OUTSIDE RECORDS SUMMARY | 2018-05-04 14:46 | XMS REPORT | Continuity of Care Document ---
Author Author [facility] Address Unknown Phone Unavailable Allergies Active Description Code Type Severity Reaction Onset Reported/Identified Relationship to Patient Clinical Status Yes Keflex Drug Allergy N/A N/A 04/20/2009 Yes latex [id number] Drug Allergy Moderate HIVES AND SWELL 07/06/2009 Yes lisinopril Drug Allergy N/A N/A 11/09/2010 Yes cephalexin [id number] Drug Allergy Moderate rash 04/28/2018 Medications There is no data. Problems Date [...] V68.1 ISSUE OF REPEAT PRESCRIPTIONS 04/25/2013 NICHOLE MCKEON, LUCAS B 251.2 HYPOGLYCEMIA 04/25/2013 YAMILETH FERRERA MD 251.2 HYPOGLYCEMIA 01/16/2014 YAMILETH FERRERA MD 681.10 UNSPECIFIED CELLULITIS AND ABSCESS OF TOE 01/16/2014 YAMILETH FERRERA MD V06.1 TDAP DX Procedures Code [place] [address] ROUTINE VENIPUNCTURE 04/25/2013 06969 CBC 04/26/2013 [id number] GFR CALC (RESULT ONLY) 04/26/2013 95559 CMP 04/26/2013 14422 XRAY FOOT LEFT COMP MIN 3 VIEWS [...] 11.6 fL 7.5-12.5 ABSOLUTE NEUTROPHILS 8100 cells/uL 7427-6198 ABSOLUTE LYMPHOCYTES 2844 cells/uL 850-3900 ABSOLUTE MONOCYTES [...] 04/01/18 13:18 CULTURE, GENITAL SEE NOTE NRG Whole blood hemoglobin and hematocrit panel - 04/28/18 17:37 Venous blood hemoglobin measurement (mass/volume) 9.4 g/dL 11.5-16.0 Blood hematocrit (volume fraction) 27 % 35-52 Whole blood basic metabolic panel - 04/28/18 17:37 Serum or plasma sodium measurement (moles/volume) 137 mmol/L 135-145 Serum or plasma potassium measurement (moles/volume) 3.5 mmol/L 3.6-5.0 Serum or plasma chloride measurement (moles/volume) 109 mmol/L 98-107 Carbon dioxide 19 mmol/L 21-32 Serum or plasma anion gap determination (moles/volume) 9 mmol/L 5-14 Serum or plasma urea nitrogen measurement (mass/volume) 20 mg/dL 7-18 Serum or plasma creatinine measurement (mass/volume) 0.73 mg/dL 0.60-1.30 Serum or plasma urea nitrogen/creatinine mass ratio 27 NRG Serum or plasma creatinine measurement with calculation of estimated glomerular filtration rate > NRG Serum or plasma glucose measurement (mass/volume) 94 mg/dL 70-105 Serum or plasma calcium measurement (mass/volume) 9.0 mg/dL 8.5-10.1 Automated blood complete blood count (hemogram) panel - 04/28/18 17:37 Blood leukocytes automated count (number/volume) 11.3 10*3/uL 4.3-11.0 Blood erythrocytes automated count (number/volume) 2.83 10*6/uL 4.35-5.85 Venous blood hemoglobin measurement (mass/volume) 9.3 g/dL 11.5-16.0 Blood hematocrit (volume fraction) 27 % 35-52 Automated erythrocyte mean corpuscular volume 95 [foz_us] 80-99 Automated erythrocyte mean corpuscular hemoglobin (mass per erythrocyte) 33 pg 25-34 Automated erythrocyte mean corpuscular hemoglobin concentration measurement ( mass/volume) 35 g/dL 32-36 Automated erythrocyte distribution width ratio 12.6 % 10.0-14.5 Automated blood platelet count (count/volume) 167 10*3/uL 130-400 Automated blood platelet mean volume measurement 12.1 [foz_us] 7.4-10.4 Complete blood count (CBC) with automated white blood cell (WBC) differential - 04/30/18 05:36 Blood leukocytes automated count (number/volume) 5.8 10*3/uL 4.3-11.0 Blood erythrocytes automated count (number/volume) 2.54 10*6/uL 4.35-5.85 Venous blood hemoglobin measurement (mass/volume) 8.2 g/dL 11.5-16.0 Blood hematocrit (volume fraction) 25 % 35-52 Automated erythrocyte mean corpuscular volume 97 [foz_us] 80-99 Automated erythrocyte mean corpuscular hemoglobin (mass per erythrocyte) 32 pg 25-34 Automated erythrocyte mean corpuscular hemoglobin concentration measurement ( mass/volume) 34 g/dL 32-36 Automated erythrocyte distribution width ratio 12.9 % 10.0-14.5 Automated blood platelet count (count/volume) 108 10*3/uL 130-400 Automated blood platelet mean volume measurement 12.1 [foz_us] 7.4-10.4 Automated blood neutrophils/100 leukocytes 67 % 42-75 Automated blood lymphocytes/100 leukocytes 23 % 12-44 Blood monocytes/100 leukocytes 9 % 0-12 Automated blood eosinophils/100 leukocytes 1 % 0-10 Automated blood basophils/100 leukocytes 0 % 0-10 Blood neutrophils automated count (number/volume) 3.9 10*3 1.8-7.8 Blood lymphocytes automated count (number/volume) 1.4 10*3 1.0-4.0 Blood monocytes automated count (number/volume) 0.5 10*3 0.0-1.0 Automated eosinophil count 0.0 10*3/uL 0.0-0.3 Automated blood basophil count (count/volume) 0.0 10*3/uL 0.0-0.1 Whole blood basic metabolic panel - 04/30/18 05:36 Serum or plasma sodium measurement (moles/volume) 139 mmol/L 135-145 Serum or plasma potassium measurement (moles/volume) 4.2 mmol/L 3.6-5.0 Serum or plasma chloride measurement (moles/volume) 115 mmol/L 98-107 Carbon dioxide 18 mmol/L 21-32 Serum or plasma anion gap determination (moles/volume) 6 mmol/L 5-14 Serum or plasma urea nitrogen measurement (mass/volume) 7 mg/dL 7-18 Serum or plasma creatinine measurement (mass/volume) 0.61 mg/dL 0.60-1.30 Serum or plasma urea nitrogen/creatinine mass ratio 11 NRG Serum or plasma creatinine measurement with calculation of estimated glomerular filtration rate > NRG Serum or plasma glucose measurement (mass/volume) 86 mg/dL 70-105 Serum or plasma calcium measurement (mass/volume) 8.4 mg/dL 8.5-10.1 Complete blood count (CBC) with automated white blood cell (WBC) differential - 05/01/18 06:05 Blood leukocytes automated count (number/volume) 10.0 10*3/uL 4.3-11.0 Blood erythrocytes automated count (number/volume) 2.53 10*6/uL 4.35-5.85 Venous blood hemoglobin measurement (mass/volume) 8.4 g/dL 11.5-16.0 Blood hematocrit (volume fraction) 24 % 35-52 Automated erythrocyte mean corpuscular volume 96 [foz_us] 80-99 Automated erythrocyte mean corpuscular hemoglobin (mass per erythrocyte) 33 pg 25-34 Automated erythrocyte mean corpuscular hemoglobin concentration measurement ( mass/volume) 35 g/dL 32-36 Automated erythrocyte distribution width ratio 13.4 % 10.0-14.5 Automated blood platelet count (count/volume) 183 10*3/uL 130-400 Automated blood platelet mean volume measurement 11.9 [foz_us] 7.4-10.4 Automated blood neutrophils/100 leukocytes 74 % 42-75 Automated blood lymphocytes/100 leukocytes 16 % 12-44 Blood monocytes/100 leukocytes 10 % 0-12 Automated blood eosinophils/100 leukocytes 1 % 0-10 Automated blood basophils/100 leukocytes 0 % 0-10 Blood neutrophils automated count (number/volume) 7.4 10*3 1.8-7.8 Blood lymphocytes automated count (number/volume) 1.6 10*3 1.0-4.0 Blood monocytes automated count (number/volume) 1.0 10*3 0.0-1.0 Automated eosinophil count 0.1 10*3/uL 0.0-0.3 Automated blood basophil count (count/volume) 0.0 10*3/uL 0.0-0.1 Encounters ACCT No. Visit Date/Time Discharge Status Pt. Type Provider Facility Loc./Unit Complaint [id number] 01/16/2014 14:59:00 01/16/2014 23:59:59 CLS Outpatient SINGER FOSTER, YAMILETH [place] [id number] 05/04/2013 15:06:00 05/04/2013 23:59:59 CLS Outpatient NICHOLE MCKEONDALILAMAJOR Salomon [id number] 04/28/2018 15:48:00 05/01/2018 14:36:00 DIS Inpatient KASHMIR HUMPHRIES DO [facility] 4TH RECTAL BLEEDING [id number] 04/28/2018 15:30:00 04/28/2018 15:30:00 CAN Preadmit DAYANNA WHITLEY MD [facility] ER RECTAL BLEEDING [id number] 05/07/2018 11:30:00 PEN Preadmit MATILDE AVALOS MD [facility] [id number] 02/02/2018 09:00:00 02/02/2018 23:59:59 CLS Outpatient YARI FORD [facility] [id number] 04/01/2018 13:20:00 Document Registration [id number] 11/17/2017 12:20:00 Document Registration [id number] 11/11/2017 17:00:00 Document Registration
--- NOTE | 2018-05-07 17:52 | Conscious Sedation/ASA ---
Conscious Sedation Pre-Proced Time 11:20 ASA Score 2 For ASA 3 and 4: Consider anesthesia and medical clearance. Also, for patients with a history of failed moderate sedation consider anesthesia. Airway Lungs Heart ASA score ASA 1: a normal healthy patient ASA 2: a patient with a mild systemic disease (mid diabetes, controlled hypertension, obesity ASA 3: a patient with a severe systemic disease that limits activity (angina , COPD, prior Myocardial infarction) ASA 4: a patient with an incapacitating disease that is a constant threat to life (CHF, renal failure) ASA 5: a moribund patient not expected to survive 24 hrs. (ruptured aneurysm) ASA 6: a declared brain patient whose organs are being harvested. For emergent operations, add the letter E after the classification Mallampati Classification Grade 2 Sedation Plan Discussed options with patient/fam The patient is an appropriate candidate to undergo the planned procedure, sedation, and anesthesia. The patient immediately re-assessed prior to indication. MATILDE AVALOS MD May 07, 2018 17:52
[2018-05-09] MEDS ORDERED: ACHD5005 PO (12:59)
== END 2018-05-01 14:36 | disposition home or self-care (01) ==
LOC: SDC 15:48 → 4TH 15:48 → UNDOADMOB 15:48 → 4TH 16:25 → UNDODISOB 05-01 14:36 → SDC 05-01 14:36 → EDSTATUS 05-04 14:00
PROVIDERS: ATTEND Family Medicine
DX: D12.4 Benign neoplasm of descending colon (principal); K29.50 Unspecified chronic gastritis without bleeding; B96.81 Helicobacter pylori [H. pylori] as the cause of diseases classified elsewhere; D64.9 Anemia, unspecified; K25.9 Gastric ulcer, unspecified as acute or chronic, without hemorrhage or perforation; Z80.0 Family history of malignant neoplasm of digestive organs; R55 Syncope and collapse; I10 Essential (primary) hypertension; F41.9 Anxiety disorder, unspecified; F32.9 Major depressive disorder, single episode, unspecified
CPT/HCPCS: 36415; 80048; 85014; 85018; 85025; 85027; 88305; 88342; 93005

== ENCOUNTER 2018-05-06 05:37 | Outpatient (CLI) | payer OTHER ==
[~2018-05-06] VITALS: Ht 172.7 cm; Wt 93.9 kg
[~2018-05-06 05:37] MED LIST changes: +ACET-2267 PO; +ESCI10TA PO; +FERR-65 PO; +LOSA50TA7 PO; +NAPR220T66 PO; +OMEP40CA36 PO; +SUCR1TAB PO
[2018-05-06 12:52] VITALS: BP 140/72
[2018-05-06 12:56] LABS: BASOPHILS % (AUTO) 0 % (0-10); EOSINOPHILS % (AUTO) 1 % (0-10); HEMATOCRIT 30 % (35-52); LYMPHOCYTES # (AUTO) 1.4 X 10^3 (1.0-4.0); LYMPHOCYTES % (AUTO) 22 % (12-44); MEAN CORPUSCULAR HEMOGLOBIN 32 PG (25-34); MEAN CORPUSCULAR HGB CONC 33 G/DL (32-36); MEAN CORPUSCULAR VOLUME 97 FL (80-99); MEAN PLATELET VOLUME 11.7 FL (7.4-10.4); MONOCYTES # (AUTO) 0.6 X 10^3 (0.0-1.0); MONOCYTES % (AUTO) 9 % (0-12); NEUTROPHILS # (AUTO) 4.4 X 10^3 (1.8-7.8); NEUTROPHILS % (AUTO) 68 % (42-75); PLATELET COUNT 254 10^3/uL (130-400); RED BLOOD COUNT 3.13 10^6/uL (4.35-5.85); RED CELL DISTRIBUTION WIDTH 14.7 % (10.0-14.5); WHITE BLOOD COUNT 6.5 10^3/uL (4.3-11.0)
[2018-05-06 13:13] LABS: BUN/CREATININE RATIO 15; CALCIUM 9.4 MG/DL (8.5-10.1); CARBON DIOXIDE 21 MMOL/L (21-32); CHLORIDE 107 MMOL/L (98-107); CREATININE SERUM 0.73 MG/DL (0.60-1.30); GFR ESTIMATED > 60; GLUCOSE 90 MG/DL (70-105); POTASSIUM 3.6 MMOL/L (3.6-5.0); SODIUM 138 MMOL/L (135-145)
== END 2018-05-06 12:45 | disposition home or self-care (01) ==
LOC: PREOP 05:37
PROVIDERS: ATTEND Surgery
DX: Z01.812 Encounter for preprocedural laboratory examination (principal); Z11.2 Encounter for screening for other bacterial diseases; K63.9 Disease of intestine, unspecified
CPT/HCPCS: 36415; 80048; 85025; 87081

== ENCOUNTER 2018-05-07 05:52 | Inpatient (IN) | payer OTHER ==
[~2018-05-07] VITALS: Ht 172.7 cm; Wt 93.9 kg
--- OUTSIDE RECORDS SUMMARY | 2018-05-07 05:58 | XMS REPORT | Continuity of Care Document ---
Author Author [facility] Address Unknown Phone Unavailable Allergies Active Description Code Type Severity Reaction Onset Reported/Identified Relationship to Patient Clinical Status Yes Keflex Drug Allergy N/A N/A 04/20/2009 Yes latex [id number] Drug Allergy Moderate HIVES AND SWELL 07/06/2009 Yes lisinopril Drug Allergy N/A N/A 11/09/2010 Yes cephalexin [id number] Drug Allergy Moderate rash 04/28/2018 Medications There [...] B 780.4 DIZZINESS AND VERTIGO 05/17/2010 NICHOLE BIGGSS, LUCAS B 786.50 CHEST PAIN 05/17/2010 YAMILETH FERRERA MD 381.81 EUSTACHIAN TUBE DYSFUNCTION 05/17/2010 YAMILETH FERRERA MD 780.4 DIZZINESS AND VERTIGO 05/17/2010 YAMILETH FERRERA MD 786.50 CHEST PAIN 08/06/2010 NICHOLE DDS, LUCAS B 784.0 HEADACHE 08/06/2010 YAMILETH FERRERA MD 784.0 HEADACHE 10/03/2010 NICHOLE BIGGSS, LUCAS B 527.5 SIALOLITHIASIS 10/03/2010 YAMILETH FERRERA MD 527.5 SIALOLITHIASIS 10/09/2010 NICHOLE BIGGSS, LUCAS B V68.1 ISSUE OF REPEAT PRESCRIPTIONS 10/09/2010 YAMILETH FERRERA MD V68.1 ISSUE OF REPEAT PRESCRIPTIONS 04/25/2013 NICHOLE MCKEON, LUCAS B 251.2 HYPOGLYCEMIA 04/25/2013 YAMILETH FERRERA MD 251.2 HYPOGLYCEMIA 01/16/2014 YAMILETH FERRERA MD 681.10 UNSPECIFIED CELLULITIS AND ABSCESS OF TOE 01/16/2014 YAMILETH FERRERA MD V06.1 TDAP DX 05/01/2018 KASHMIR HUMPHRIES DO Ot D64.9 ANEMIA, UNSPECIFIED 05/01/2018 KASHMIR HUMPHRIES DO Ot F32.9 MAJOR DEPRESSIVE DISORDER, SINGLE EPISOD 05/01/2018 KASHMIR HUMPHRIES DO Ot F41.9 ANXIETY DISORDER, UNSPECIFIED 05/01/2018 KASHMIR HUMPHRIES DO Ot I10 ESSENTIAL (PRIMARY) HYPERTENSION 05/01/2018 KASHMIR HUMPHRIES DO Ot K25.9 GASTRIC ULCER, UNSP ACUTE OR CHRONIC, 05/01/2018 KASHMIR HUMPHRIES DO Ot K63.5 POLYP OF COLON 05/01/2018 KASHMIR HUMPHRIES DO Ot K92.1 MELENA 05/01/2018 HUMPHRIES DO, KASHMIR K Ot R55 SYNCOPE AND COLLAPSE 05/01/2018 HUMPHRIES DO, KASHMIR K Ot Z80.0 FAMILY HISTORY OF MALIGNANT NEOPLASM OF 05/04/2018 HUMPHRIES DO, KASHMIR K Ot D64.9 ANEMIA, UNSPECIFIED 05/04/2018 HUMPHRIES DO, KASHMIR K Ot F32.9 MAJOR DEPRESSIVE DISORDER, SINGLE EPISOD 05/04/2018 HUMPHRIES DO, KASHMIR K Ot F41.9 ANXIETY DISORDER, UNSPECIFIED 05/04/2018 HUMPHRIES DO, KASHMIR K Ot I10 ESSENTIAL (PRIMARY) HYPERTENSION 05/04/2018 HUMPHRIES DO, KASHMIR K Ot K25.9 GASTRIC ULCER, UNSP ACUTE OR CHRONIC, 05/04/2018 HUMPHRIES DO, KASHMIR K Ot K63.5 POLYP OF COLON 05/04/2018 HUMPHRIES DO, KASHMIR K Ot K92.1 MELENA 05/04/2018 HUMPHRIES DO, KASHMIR K Ot R55 SYNCOPE AND COLLAPSE 05/04/2018 HUMPHRIES DO, KASHMIR K Ot Z80.0 FAMILY HISTORY OF MALIGNANT NEOPLASM OF 05/04/2018 HUMPHRIES DO, KASHMIR K Ot D64.9 ANEMIA, UNSPECIFIED 05/04/2018 HUMPHRIES DO, KASHMIR K Ot F32.9 MAJOR DEPRESSIVE DISORDER, SINGLE EPISOD 05/04/2018 HUMPHRIES DO, KASHMIR K Ot F41.9 ANXIETY DISORDER, UNSPECIFIED 05/04/2018 HUMPHRIES DO, KASHMIR K Ot I10 ESSENTIAL (PRIMARY) HYPERTENSION 05/04/2018 HUMPHRIES DO, KASHMIR K Ot K25.9 GASTRIC ULCER, UNSP ACUTE OR CHRONIC, 05/04/2018 HUMPHRIES DO, KASHMIR K Ot K63.5 POLYP OF COLON 05/04/2018 HUMPHRIES DO, KASHMIR K Ot K92.1 MELENA 05/04/2018 HUMPHRIES DO, KASHMIR K Ot R55 SYNCOPE AND COLLAPSE 05/04/2018 HUMPHRIES DO, KASHMIR K Ot Z80.0 FAMILY HISTORY OF MALIGNANT NEOPLASM OF 05/06/2018 HUMPHRIES DO, KASHMIR K Ot B96.81 HELICOBACTER PYLORI THE CAUSE OF DISE 05/06/2018 HUMPHRIES DO, KASHMIR K Ot D12.4 BENIGN NEOPLASM OF DESCENDING COLON 05/06/2018 HUMPHRIES DO, KASHMIR K Ot D64.9 ANEMIA, UNSPECIFIED 05/06/2018 HUMPHRIES DO, KASHMIR K Ot F32.9 MAJOR DEPRESSIVE DISORDER, SINGLE EPISOD 05/06/2018 HUMPHRIES DO, KASHMIR K Ot F41.9 ANXIETY DISORDER, UNSPECIFIED 05/06/2018 KASHMIR HUMHPRIES DO Ot I10 ESSENTIAL (PRIMARY) HYPERTENSION 05/06/2018 KASHMIR HUMPHRIES DO Ot K25.9 GASTRIC ULCER, UNSP ACUTE OR CHRONIC, 05/06/2018 KASHMIR HUMPHRIES DO Ot K29.50 UNSPECIFIED CHRONIC GASTRITIS WITHOUT BL 05/06/2018 KASHMIR HUMPHRIES DO Ot R55 SYNCOPE AND COLLAPSE 05/06/2018 KASHMIR HUMPHRIES DO Ot Z80.0 FAMILY HISTORY OF MALIGNANT NEOPLASM OF Procedures Code Description [place] [address] ROUTINE VENIPUNCTURE 04/25/2013 74785 CBC 04/26/2013 [id number] GFR CALC (RESULT ONLY) 04/26/2013 82819 CMP 04/26/2013 19677 XRAY FOOT LEFT COMP MIN 3 VIEWS [...] 11.6 fL 7.5-12.5 ABSOLUTE NEUTROPHILS 8100 cells/uL 8982-6190 ABSOLUTE LYMPHOCYTES 2844 cells/uL 850-3900 ABSOLUTE MONOCYTES [...] blood basophil count (count/volume) 0.0 10*3/uL 0.0-0.1 Complete blood count (CBC) with automated white blood cell (WBC) differential - 05/06/18 12:35 Blood leukocytes automated count (number/volume) 6.5 10*3/uL 4.3-11.0 Blood erythrocytes automated count (number/volume) 3.13 10*6/uL 4.35-5.85 Venous blood hemoglobin measurement (mass/volume) 10.0 g/dL 11.5-16.0 Blood hematocrit (volume fraction) 30 % 35-52 Automated erythrocyte mean corpuscular volume 97 [foz_us] 80-99 Automated erythrocyte mean corpuscular hemoglobin (mass per erythrocyte) 32 pg 25-34 Automated erythrocyte mean corpuscular hemoglobin concentration measurement ( mass/volume) 33 g/dL 32-36 Automated erythrocyte distribution width ratio 14.7 % 10.0-14.5 Automated blood platelet count (count/volume) 254 10*3/uL 130-400 Automated blood platelet mean volume measurement 11.7 [foz_us] 7.4-10.4 Automated blood neutrophils/100 leukocytes 68 % 42-75 Automated blood lymphocytes/100 leukocytes 22 % 12-44 Blood monocytes/100 leukocytes 9 % 0-12 Automated blood eosinophils/100 leukocytes 1 % 0-10 Automated blood basophils/100 leukocytes 0 % 0-10 Blood neutrophils automated count (number/volume) 4.4 10*3 1.8-7.8 Blood lymphocytes automated count (number/volume) 1.4 10*3 1.0-4.0 Blood monocytes automated count (number/volume) 0.6 10*3 0.0-1.0 Automated eosinophil count 0.0 10*3/uL 0.0-0.3 Automated blood basophil count (count/volume) 0.0 10*3/uL 0.0-0.1 Whole blood basic metabolic panel - 05/06/18 12:35 Serum or plasma sodium measurement (moles/volume) 138 mmol/L 135-145 Serum or plasma potassium measurement (moles/volume) 3.6 mmol/L 3.6-5.0 Serum or plasma chloride measurement (moles/volume) 107 mmol/L 98-107 Carbon dioxide 21 mmol/L 21-32 Serum or plasma anion gap determination (moles/volume) 10 mmol/L 5-14 Serum or plasma urea nitrogen measurement (mass/volume) 11 mg/dL 7-18 Serum or plasma creatinine measurement (mass/volume) 0.73 mg/dL 0.60-1.30 Serum or plasma urea nitrogen/creatinine mass ratio 15 NRG Serum or plasma creatinine measurement with calculation of estimated glomerular filtration rate > NRG Serum or plasma glucose measurement (mass/volume) 90 mg/dL 70-105 Serum or plasma calcium measurement (mass/volume) 9.4 mg/dL 8.5-10.1 Blood type T Indirect antibody screen panel - 05/06/18 12:35 ABO+Rh group AN NRG Transfusion band number [id number] NRG Blood group antibody screen NEGATIVE NRG Encounters ACCT No. Visit Date/Time Discharge Status Pt. Type Provider Facility Loc./Unit Complaint [id number] 01/16/2014 14:59:00 01/16/2014 23:59:59 CLS Outpatient SINGER FOSTER, YAMILETH [place]kin [id number] 05/04/2013 15:06:00 05/04/2013 23:59:59 CLS Outpatient NICHOLE MCKEON, LUCAS B [id number] 05/06/2018 05:37:00 05/06/2018 12:45:00 DIS Outpatient ROBBIE FOSTER, MATILDE Bowers [facility] PREOP CECAL MASS [id number] 04/28/2018 15:48:00 05/01/2018 14:36:00 DIS Outpatient KASHMIR HUMPHRIES DO [facility] SDC RECTAL BLEEDING [id number] 04/28/2018 15:30:00 04/28/2018 15:30:00 CAN Preadmit DAYANNA WHITLEY MD [facility] ER RECTAL BLEEDING [id number] 05/07/2018 05:52:00 ACT Inpatient ROBBIE FOSTER, MATILDE Bowers [facility] SURG CECAL MASS [id number] 02/02/2018 09:00:00 02/02/2018 23:59:59 CLS Outpatient YARI [facility] [id number] 04/01/2018 13:20:00 Document Registration [id number] 11/17/2017 12:20:00 Document Registration [id number] 11/11/2017 17:00:00 Document Registration
[2018-05-07 06:15] VITALS: BP 133/70
[2018-05-07] MEDS: LACTATED RINGERS 1,000 ML IV PRN ×3 (06:30→10:56)
[2018-05-07] MEDS ORDERED: ROCURONIUM 10 MG/ML 5 ML SYRINGE IV ONE ×2 (06:53→09:45)
[2018-05-07] MEDS ORDERED: LIDOCAINE PF 2% 5 ML (XYLOCAINE) VIAL ONE (06:53)
[2018-05-07] MEDS ORDERED: ONDANSETRON 4 MG/2 ML (SDV) Z0FRAN ONE (06:53)
[2018-05-07] MEDS ORDERED: fentaNYL INJECTION 100 MCG/2 ML AMP ONE ×3 (06:53→11:08)
[2018-05-07] MEDS ORDERED: DEXAMETHASONE 10 MG/ML (DECADRON) 1 ML VIAL ONE (06:53)
[2018-05-07] MEDS ORDERED: MIDAZOLAM 2 MG/2 ML (VERSED) VIAL ONE (06:53)
[2018-05-07] MEDS ORDERED: proPOfol 200 MG/20 ML (DIPRIVAN) VIAL IV ONE (06:53)
[2018-05-07] MEDS ORDERED: ceFAZolin 2 GM IV Premixed 50 ML IV ONE (07:00)
[2018-05-07] MEDS ORDERED: metroNIDAZOLE 500MG/100ML IVPB 100 ML IV ONE (07:00)
[2018-05-07] MEDS ORDERED: metroNIDAZOLE 500MG/100ML IVPB 100 ML ONE ×2 (07:00→11:40)
[2018-05-07] MEDS ORDERED: ceFAZolin 2 GM IV Premixed 0 ML ONE (07:00)
[2018-05-07] MEDS ORDERED: SEVOFLURANE (ULTANE) 15 ML INHAL SOLN ONE ×18 (07:01→12:12)
[2018-05-07] MEDS ORDERED: BUP/EPI 0.5% 1:200,000 (SENSORCAINE) 30 ML VIAL ONE (07:36)
[2018-05-07] MEDS ORDERED: CLINDAMYCIN 600 MG/50 ML IVPB 50 ML IV ONE ×2 (07:44→09:00)
--- NOTE | 2018-05-07 07:44 | Progress Note-Pre Operative ---
Pre-Operative Progress Note H&P Reviewed The H&P was reviewed, patient examined and no changes noted. Date Seen by Provider: May 06, 2018 Time Seen by Provider: 11:10 Date H&P Reviewed: May 07, 2018 Time H&P Reviewed: 07:44 Pre-Operative Diagnosis: Lesion in cecum MATILDE AVALOS MD May 07, 2018 07:44
[2018-05-07] MEDS ORDERED: NEOSTIGMINE 1 MG/ML 5 ML SYRINGE ONE (11:36)
[2018-05-07] MEDS ORDERED: GLYCOPYRROLATE 0.2 MG/ML (ROBINUL) 2 ML VIAL ONE ×2 (11:36→11:54)
[2018-05-07] MEDS ORDERED: CLINDAMYCIN 600 MG/4ML (CLEOCIN) VIAL ONE (11:40)
[2018-05-07] MEDS ORDERED: NS (IVPB) 50 ML ONE (11:42)
[2018-05-07] MEDS ORDERED: PATIENT MAY USE OWN MEDS, ALL PO SCH (12:30)
[2018-05-07] MEDS ORDERED: ONDANSETRON 4 MG/2 ML (SDV) Z0FRAN IVP PRN ×2 (12:30→12:45)
[2018-05-07] MEDS ORDERED: MEPERIDINE (DEMEROL) INJ 50 MG/ML IVP ONE (12:45)
[2018-05-07] MEDS ORDERED: morphine INJ 10 MG/ML 1ML (SYR OR VIAL) IVP ONE (12:45)
[2018-05-07] MEDS ORDERED: HYDROmorphone 2 MG/ML VIAL (DILAUDID) IV ONE (12:45)
[2018-05-07] MEDS ORDERED: morphine INJ 10 MG/ML 1ML (SYR OR VIAL) ONE (13:02)
--- NOTE | 2018-05-07 13:22 | Operative Report ---
Operative Report Date of Procedure/Surgery May 07, 2018 Surgeon (s) MATILDE AVALOS MD Veterinary Assistant Technician (s): N/A Post-Operative Diagnosis same Procedure Performed Robotic assisted right hemicolectomy with intracorporeal anastomosis Description of Procedure Anesthesia Type: General Estimated blood loss (mL): 100 mL Specimen(s) collected/removed right colon Description of the Procedure Indication for the procedure: Evaluation for GI bleeding and can skin anemia revealed a sessile lesion at the cecum requiring segmental resection. She was therefore offered formal hemicolectomy using minimally invasive technique with robotic assistance and intracorporeal anastomosis. Informed consent was obtained after reviewing the operative details and complications of wound infection, anastomotic leak and cardiorespiratory dysfunction. Description of the procedure: She was placed supine on the operating table and general anesthesia induced. Clindamycin and Flagyl were administered intravenously as prophylaxis against wound infection. A Retana catheter was placed to decompress the bladder during surgery. Abdomen was prepared and draped in the usual sterile manner. Pneumoperitoneum was established using a Veress needle introduced lateral and inferior to the umbilicus, along the left side, avoiding the inferior epigastric vessels. Intra -abdominal pressure was maintained at 15 mmHg, using carbon dioxide insufflation. A 12 mm trocar was placed and anatomy visualized using a high definition, 3-dimensional laparoscope associated with da Valentín system. Under direct view, I placed a 12 mm trocar superior lateral to the first trocar, to facilitate using the robotic stapler, followed by an 8 mm trocar over the supra region and the epigastric region respectively. An 8 mm assist port was placed between the camera trocar and the suprapubic one. The robotic system was then docked in place. Julieth ink used to tattoo the lesion was identified along the right colon. Cecum was held up using the grasping retractor, placing the ileocolic vascular pedicle under slight tension. It was controlled using the vessel sealing device. Mobilization was then continued in a medial to lateral fashion using the same device, identifying and protecting the duodenum. The right colic pedicle was controlled using the same device. Mobilization was continued up to the middle colic vessel, that was preserved. Distally, the mesentery was mobilized to ensure a tension free anastomosis. Terminal ileum was then transected using the 3.5 stapler followed by transection of the proximal transverse colon using the same stapling device. Specimen was then placed over the liver to allow room or making the anastomosis. An isoperistaltic configuration of the anastomosis was created between the divided terminal ileum and the transverse colon using 3.5 robotic stapler. The common enterotomy was closed using 2 layers of 20V LOC suture followed by a Lembert's suture with 3-0 Vicryl. There was no tension and the anastomosis appeared to have good perfusion. Omentum was then placed over the anastomosis and the operation concluded. a 4 cm Pfannenstiel incision was made and the specimen retrieved using a wound protection device. Peritoneum over this incision was closed using 3-0 PDS. Fascia was closed using #1 Prolene and the subcutaneous tissue using 3-0 Vicryl. Skin was closed using 4-0 Vicryl. The fascia over the 12 mm incisions was closed using #1 Vicryl. All the skin incisions were closed using 4-0 Vicryl in a subcuticular fashion. 0.5 percent Marcaine with epinephrine was infiltrated along the incisions, both preemptively and at the conclusion of the operation. She tolerated procedure well, was extubated in the operating room and taken to the recovery room in a stable condition. Findings of the Procedure See op report Allergies and Home Medications Allergies Coded Allergies: cephalexin (Verified Allergy, Intermediate, rash, 04/28/18) latex (Unverified Allergy, Intermediate, HIVES AND SWELLING, 07/06/09) Home Medications Acetaminophen 500 Mg Tablet, 500-1,000 MG PO Q6H PRN for PAIN-MILD, (Reported) Escitalopram Oxalate 10 Mg Tablet, 10 MG PO DAILY, (Reported) LAST FILLED #30 18 Ferrous Sulfate 325 Mg Tablet, 325 MG PO BID Prescribed by: KASHMIR HUMPHRIES on 04/30/18 111 Losartan Potassium 50 Mg Tablet, 50 MG PO DAILY, (Reported) LAST FILLED #30 18 Omeprazole 40 Mg Capsule.dr, 40 MG PO DAILY Prescribed by: KASHMIR HUMPHRIES on 04/30/18 111 Sucralfate 1 Gm Tablet, 1 GM PO TID Prescribed by: KASHMIR HUMPHRIES on 05/01/18 1207 Patient Home Medication List Home Medication List Reviewed: Yes MATILDE AVALOS MD May 07, 2018 13:22
[2018-05-07 13:50] VITALS: BP 125/58
[2018-05-07] MEDS ORDERED: CLINDAMYCIN 600 MG/50 ML IVPB 50 ML IV NR ×2 (14:30→22:30)
[2018-05-07] MEDS ORDERED: metroNIDAZOLE 500MG/100ML IVPB 100 ML IV SCH (14:30)
[2018-05-07] MEDS: fentaNYL INJECTION 100 MCG/2 ML AMP IV PRN ×2 (14:46→18:11)
[2018-05-07] MEDS ORDERED: FLU QUADRIvalent (5+ YOA) 2018-2019 (AFLURIA) 0.5 ML IM ONE (15:15)
[2018-05-07 15:20] VITALS: BP 132/68
[2018-05-07] MEDS ORDERED: KETOROLAC 30 MG/ML VIAL IVP NR (17:00)
[2018-05-07] MEDS: metroNIDAZOLE 500MG/100ML IVPB 100 ML IV SCH (18:04)
[2018-05-07] MEDS: LACTATED RINGERS 1,000 ML IV SCH (18:04)
[2018-05-07 19:45] VITALS: BP 130/62
[2018-05-07] MEDS: CLINDAMYCIN 600 MG/50 ML IVPB 50 ML IV SCH (19:49)
[2018-05-08] VITALS: BP 123/58
[2018-05-08] MEDS: fentaNYL INJECTION 100 MCG/2 ML AMP IV PRN ×2 (00:39→08:15)
[2018-05-08] MEDS: metroNIDAZOLE 500MG/100ML IVPB 100 ML IV SCH (02:35)
[2018-05-08] MEDS: CLINDAMYCIN 600 MG/50 ML IVPB 50 ML IV SCH (03:51)
[2018-05-08 04:00] VITALS: BP 134/62
[2018-05-08 05:38] LABS: BUN/CREATININE RATIO 10; CALCIUM 8.9 MG/DL (8.5-10.1); CARBON DIOXIDE 19 MMOL/L (21-32); CHLORIDE 110 MMOL/L (98-107); CREATININE SERUM 0.71 MG/DL (0.60-1.30); GFR ESTIMATED > 60; GLUCOSE 124 MG/DL (70-105); POTASSIUM 3.6 MMOL/L (3.6-5.0); SODIUM 138 MMOL/L (135-145)
[2018-05-08] MEDS: PANTOPRAZOLE 40 MG (PROTONIX) VIAL IVP SCH (06:03)
[2018-05-08] MEDS: LACTATED RINGERS 1,000 ML IV SCH ×3 (06:56→16:00)
[2018-05-08 08:00] VITALS: BP 151/70
[2018-05-08] MEDS: LOSARTAN 50 MG (COZAAR) TAB PO SCH (08:15)
[2018-05-08] MEDS ORDERED: NON-FORMULARY MEDICATION 1 EA EA (Escitalopram Oxalate (Lexapro) 10 MG) PO SCH (09:00)
[2018-05-08] MEDS ORDERED: NON-FORMULARY MEDICATION 1 EA EA (Losartan Potassium 50 MG) PO SCH (09:00)
--- NOTE | 2018-05-08 11:34 | Progress Note-Standard ---
Standard Progress Note Progress Notes/Assess & Plan Date Seen by a Provider: May 08, 2018 Time Seen by a Provider: 11:33 Progress/Assessment & Plan Inadequate pain control, nauseous. Incisions dry. Systolic HTN. Will use a dose of toradol and encouraged using spirometry. Reglan and oral meds for pain control Final Diagnosis Cecal lesion MATILDE AVALOS MD May 08, 2018 11:34
[2018-05-08] MEDS ORDERED: meTOprolol 5 MG/5 ML (LOPRESSOR) VIAL IV PRN (11:45)
[2018-05-08] MEDS ORDERED: KETOROLAC 30 MG/ML VIAL IVP ONE (11:45)
[2018-05-08] MEDS: METOCLOPRAMIDE INJ 10 MG/2 ML (REGLAN) IVP SCH ×3 (11:55→23:48)
[2018-05-08] MEDS: ENOXAPARIN 40 MG/0.4 ML (LOVENOX) SYR SC SCH (11:56)
[2018-05-08 12:00] VITALS: BP 157/70
[2018-05-08 16:00] VITALS: BP 130/62
[2018-05-08] MEDS: HYDROcodone/APAP 7.5MG-325 MG/15 ML (LORTAB) UDC PO PRN (16:00)
--- NOTE | 2018-05-08 16:06 | Anesthesia-General Post-Op ---
General Patient Condition Mental Status/LOC: Same as Preop Cardiovascular: Satisfactory Nausea/Vomiting: Absent Respiratory: Satisfactory Pain: Controlled Complications: Absent Post Op Complications Complications None Follow Up Care/Instructions Patient Instructions None needed. Anesthesia/Patient Condition Patient Condition Patient is doing well, no complaints, stable vital signs, no apparent adverse anesthesia problems. No complications reported per nursing. DENISE ARGUELLES CRNA May 08, 2018 16:06
[2018-05-08 19:40] VITALS: BP 126/58
[2018-05-09 00:30] VITALS: BP 136/60
[2018-05-09] MEDS: LACTATED RINGERS 1,000 ML IV SCH (02:04)
[2018-05-09 04:24] VITALS: BP 130/61
[2018-05-09] MEDS: METOCLOPRAMIDE INJ 10 MG/2 ML (REGLAN) IVP SCH ×2 (06:09→11:31)
[2018-05-09] MEDS: PANTOPRAZOLE 40 MG (PROTONIX) VIAL IVP SCH (06:09)
[2018-05-09 08:00] VITALS: BP 133/62
[2018-05-09] MEDS: LOSARTAN 50 MG (COZAAR) TAB PO SCH (08:13)
[2018-05-09] MEDS: HYDROcodone/APAP 7.5MG-325 MG/15 ML (LORTAB) UDC PO PRN (08:19)
[2018-05-09] MEDS: ENOXAPARIN 40 MG/0.4 ML (LOVENOX) SYR SC SCH (11:31)
[2018-05-09 12:00] VITALS: BP 123/59
--- NOTE | 2018-05-09 12:54 | Progress Note-Standard ---
Standard Progress Note Progress Notes/Assess & Plan Date Seen by a Provider: May 09, 2018 Time Seen by a Provider: 11:55 Progress/Assessment & Plan Inadequate pain control, nauseous. Incisions dry. Systolic HTN. Will use a dose of toradol and encouraged using spirometry. Reglan and oral meds for pain control. Pain control adequate. Has had BMs. Incisions dry. Home today Final Diagnosis Lesion of cecum with GI bleeding and anemia MATILDE AVALOS MD May 09, 2018 12:54
--- NOTE | 2018-05-09 12:56 | Discharge Summary ---
Diagnosis/Chief Complaint Date of Admission May 07, 2018 at 05:52 Date of Discharge 05/09/18 Discharge Date: May 09, 2018 Discharge Time: 12:55 Admission Diagnosis Admission Diagnosis Cecal mass Discharge Diagnosis Lesion of cecum with GI bleeding Reason Hospital Visit Elective admission to undergo right hemicolectomy Discharge Summary Procedures Robotic assisted right hemicolectomy. Has recovered well. Final histology pending Consultations None Discharge Physical Examination Allergies: Coded Allergies: cephalexin (Verified Allergy, Intermediate, rash, 04/28/18) latex (Unverified Allergy, Intermediate, HIVES AND SWELLING, 07/06/09) Vitals & I&Os Vital Signs Date Time Temp Pulse Resp B/P (MAP) Pulse Ox O2 Delivery O2 Flow Rate FiO2 05/09/18 08:15 Room Air 05/09/18 08:00 99.6 80 22 133/62 (85) 98 Hospital Course Labs (last 24 hrs) Laboratory Tests 05/08/18 04:35: Sodium Level 138, Potassium Level 3.6, Chloride Level 110H, Carbon Dioxide Level 19L, Anion Gap 9, Blood Urea Nitrogen 7, Creatinine 0.71, Estimat Glomerular Filtration Rate > 60, BUN/Creatinine Ratio 10, Glucose Level 124H, Calcium Level 8.9 Pending Labs Laboratory Tests 05/08/18 04:35: Sodium Level 138, Potassium Level 3.6, Chloride Level 110, Carbon Dioxide Level 19, Anion Gap 9, Blood Urea Nitrogen 7, Creatinine 0.71, Estimat Glomerular Filtration Rate > 60, BUN/Creatinine Ratio 10, Glucose Level 124, Calcium Level 8.9 Discharge Home Medications: Active Scripts Active Sucralfate 1 Gm Tablet 1 Gm PO TID Feosol (Ferrous Sulfate) 325 Mg Tablet 325 Mg PO BID Omeprazole 40 Mg Capsule.dr 40 Mg PO DAILY Reported Losartan Potassium 50 Mg Tablet 50 Mg PO DAILY LAST FILLED #30 03-03-18 Lexapro (Escitalopram Oxalate) 10 Mg Tablet 10 Mg PO DAILY LAST FILLED #30 03-03-18 Tylenol Extra Strength (Acetaminophen) 500 Mg Tablet 500-1,000 Mg PO Q6H PRN Instructions to patient/family Please see electronic discharge instructions given to patient. Clinical Quality Measures DVT/VTE Risk/Contraindication: Risk Factor Score Per Nursin RFS Level Per Nursing on Admit: 3=High MATILDE AVALOS MD May 09, 2018 12:56
[2018-05-09] MEDS ORDERED: ACHD5005 PO (12:59)
--- NOTE | 2018-05-09 13:00 | Discharge Inst-Simple/Standard ---
Discharge Inst-Standard Discharge Medications New, Converted or Re-Newed RX: RX on Chart Patient Instructions/Follow Up Plan of Care/Instructions/FU: May shower. Please leave a message @ [phone] regarding a f/u aapointment in 2 weeks Activity as Tolerated: No Goal: No lifting over 20 lb Discharge Diet: No Restrictions MATILDE AVALOS MD May 09, 2018 13:00
== END 2018-05-09 14:05 | disposition home or self-care (01) | DRG 330 ==
LOC: 4TH 05:52 → SURG 05:53 → 4TH 13:35
PROVIDERS: ADMIT Surgery; ATTEND Surgery
PROC: 8E0WXCZ Robotic Assisted Procedure of Trunk Region (ICD-10-PCS; 2018-05-07)
PROC: 0DTF4ZZ Resection of Right Large Intestine, Percutaneous Endoscopic Approach (ICD-10-PCS; principal; 2018-05-07 07:53)
DX: K63.9 Disease of intestine, unspecified (principal); K92.2 Gastrointestinal hemorrhage, unspecified; D50.0 Iron deficiency anemia secondary to blood loss (chronic); I10 Essential (primary) hypertension; K21.9 Gastro-esophageal reflux disease without esophagitis; G47.33 Obstructive sleep apnea (adult) (pediatric); G56.93 Unspecified mononeuropathy of bilateral upper limbs; E66.9 Obesity, unspecified; F32.9 Major depressive disorder, single episode, unspecified; F41.9 Anxiety disorder, unspecified; Z68.31 Body mass index [BMI] 31.0-31.9, adult; Z87.09 Personal history of other diseases of the respiratory system
CPT/HCPCS: 36415; 80048; 86850; 86900; 86901; 94664

== ENCOUNTER 2019-05-30 05:44 | Outpatient (CLI) | payer OTHER ==
[~2019-05-30] VITALS: Ht 172 cm; Wt 92.7 kg
[~2019-05-30 05:44] MED LIST changes: +ACHD5005 PO; +LOSA50TA63 PO; -LOSA50TA7 PO
[2019-05-30] MEDS ORDERED: BUPR100T7 PO (10:45)
[2019-05-30] MEDS ORDERED: HYDR25TA4 PO (10:45)
[2019-05-30] MEDS ORDERED: FERR-84 PO (10:45)
[2019-05-30] MEDS ORDERED: HYDR12.56 PO (11:05)
[2019-05-30] MEDS ORDERED: OMEP40CA36 PO (11:06)
[2019-05-30] MEDS ORDERED: LOSA50TA63 PO (11:06)
== END 2019-05-30 11:07 ==
LOC: PREOP 05:44
PROVIDERS: ATTEND Surgery
DX: Z01.818 Encounter for other preprocedural examination (principal)

== ENCOUNTER 2019-06-06 07:52 | Day surgery (SDC) | payer OTHER ==
[~2019-06-06] VITALS: Ht 172 cm; Wt 92.7 kg
[~2019-06-06 07:52] MED LIST changes: +BUPR100T7 PO; +FERR-84 PO; +HYDR12.56 PO; +HYDR25TA4 PO; +OMEP40CA27 PO; -OMEP40CA36 PO
[2019-06-06] MEDS ORDERED: HURRICAINE EXT TUBE (BENZOCAINE) XX PRN (08:00)
[2019-06-06] MEDS ORDERED: LACTATED RINGERS 1,000 ML IV STA (08:00)
[2019-06-06] MEDS ORDERED: LACTATED RINGERS 1,000 ML IV ONE (08:01)
[2019-06-06 08:12] VITALS: BP 129/83
--- NOTE | 2019-06-06 08:50 | Progress Note-Pre Operative ---
Pre-Operative Progress Note H&P Reviewed The H&P was reviewed, patient examined and no changes noted. Time Seen by Provider: 08:47 Date H&P Reviewed: Jun 06, 2019 Time H&P Reviewed: 08:48 Pre-Operative Diagnosis: Personal hx of colon polyps, Anemia, Hemoccult+, Ga AN Tate DO Jun 06, 2019 08:50 POS
[2019-06-06] MEDS ORDERED: PROPOFOL INJECTION 50 ML IV ONE ×2 (09:29→09:53)
[2019-06-06] MEDS ORDERED: MIDAZOLAM 2 MG/2 ML (VERSED) VIAL ONE (09:30)
[2019-06-06] MEDS ORDERED: HURRICAINE EXT TUBE (BENZOCAINE) ONE (09:30)
[2019-06-06 10:05] VITALS: BP 99/55
[2019-06-06 10:10] VITALS: BP 99/58
[2019-06-06 10:15] VITALS: BP 111/65
--- NOTE | 2019-06-06 10:42 | Progress Note-Post Operative ---
Post-Operative Progess Note Surgeon (s)/Pastrycook'S Assistant (s) Surgeon AN MCDONALD DO Pastrycook'S Assistant: Trace Nova MSIII Pre-Operative Diagnosis Personal hx of colon polyps, Anemia, Hemoccult+, Gastritis Post-Operative Diagnosis Gastritis Hiatal Hernia Polyps Internal Hemorrhoids Procedure & Operative Findings Date of Procedure 06/06/19 Procedure Performed/Findings EGD with bx Colon with hot bx Anesthesia Type IV sedation by GEAR MACHINE OPERATOR GENERAL Estimated Blood Loss Estimated blood loss (mL): scant Specimens/Packing Specimens Removed antral bx body of stomach bx Cardia bx GE jxn bx Polyps Internal hemorrhoids AN MCDONALD DO Jun 06, 2019 10:42 POS
[2019-06-06] MEDS ORDERED: ESOM20CA58 PO (10:44)
[2019-06-06] MEDS ORDERED: SUCR1TAB36 PO (10:44)
[2019-06-06 10:45] VITALS: BP 123/81
--- NOTE | 2019-06-06 10:45 | Endoscopy Discharge Instruct ---
Endo Procedure/Findings Findings 1.: Hiatal Hernia, Gastritis 2.: Polyp 3.: Internal Hemorrhoids Discharge Instructions - Activity: You might feel a little sleepy until tomorrow. This is due to the medicine you received to relax you. Until tomorrow, you should: NOT drive a car, operate machinery or power tools. NOT drink any alcoholic beverages. NOT make any important decisions or sign importortant papers. Do not return to work until tomorrow, unless otherwise instructed. Resume previous activities tomorrow. Diet: Start by taking liquids. If you tolerate liquids, advance to solid food. make an appt for 2 weeks 1.: Colonoscopy in 1 year, EGD in 6-8 weeks Notify Physician - If you experience excessive bleeding, unusual abdominal pain, fever, or chest pain, contact your doctor immediately. AN MCDONALD DO Jun 06, 2019 10:44 POS
[2019-06-06 11:05] VITALS: BP 123/81
--- NOTE | 2019-06-06 14:10 | Anesthesia-General Post-Op ---
MAC Patient Condition Mental Status/LOC: Same as Preop Cardiovascular: Satisfactory Nausea/Vomiting: Absent Respiratory: Satisfactory Pain: Controlled Complications: Absent Post Op Complications Complications None Follow Up Care/Instructions Patient Instructions None needed. Anesthesiology Discharge Order Discharge Order Patient is doing well, no complaints, stable vital signs, no apparent adverse anesthesia problems. No complications reported per nursing. NAHID COX CRNA Jun 06, 2019 14:10 POS
--- NOTE | 2019-06-07 03:50 | OPERATIVE REPORT ---
DATE OF SERVICE: 06/06/2019 PREOPERATIVE DIAGNOSES: 1. Gastritis. 2. Hemoccult positive. 3. Anemia. 4. History of polyps with colon resection. POSTOPERATIVE DIAGNOSES: 1. Gastritis. 2. Hiatal hernia. 3. Colon polyps. 4. Internal hemorrhoids. PROCEDURES: 1. EGD with biopsy. 2. Colonoscopy with hot biopsy. SURGEON: Rm Esquivel, DO FLIGHT ENGINEER: Please see immediate postop note. ANESTHESIA: IV sedation by the ANIMAL NUTRITION CONSULTANT. SPECIMEN: Biopsy from the antrum, biopsy from body of stomach, biopsy from the cardia of stomach and biopsy from the GE junction as well as then biopsy of a polyp approximately 10 cm from the anastomosis, and then another hot biopsy from the sigmoid colon. INDICATION FOR PROCEDURE: The patient is a 43-year-old female who has a history of gastritis recently found to be anemic, Hemoccult positive, had a history of polyps with colon resection, needed a workup. FINDINGS: The patient had pretty severe gastritis, pictures taken. She also had a hiatal hernia. In the colon, she had some small flat polyp seen about 10 cm from the anastomosis and in the sigmoid colon. PROCEDURE NOTE: After informed consent was obtained, the patient was brought to the endoscopy suite, placed in bed in left lateral decubitus position. She was administered IV sedation by the ANIMAL NUTRITION CONSULTANT who then monitored her vitals the entire time, heart rate, blood pressure and pulse ox, started with the EGD, placing scope down the mouth through the esophagus into the stomach. Immediately upon entering the stomach, noted some pretty severe inflammation, pushed towards the antrum. Antrum did not look that bad, pushed into duodenum. Duodenum looked okay, took a picture of the duodenum, then pulled back and took a picture of the antrum and then did a biopsy here. Retroflexed the scope, saw hiatal hernia, did a biopsy of the cardia of the stomach and then another one in the body of stomach and then did a biopsy of the GE junction. Suctioned the air out of the stomach and then pulled the scope up the esophagus and out the mouth. Switched camera, switched gloves, went down below, started the colonoscopy, pushed the scope in all the way to the anastomosis, took a picture of the anastomosis and then slowly withdrew the scope. About 10 cm from the anastomosis, saw some flat polyps, elected to do a hot biopsy of these and then continued down, most likely through the transverse to descending colon, into the sigmoid; and then in the sigmoid saw some small flat polyp, did another hot biopsy and then pulled the scope into the rectal vault, retroflexed, saw some small internal hemorrhoids, took a picture of this and then removed the scope. The patient tolerated the procedure. She was recovered in endoscopy suite. Job ID: [id number] DocumentID: [id number] Dictated Date: 06/06/2019 18:28:55 Commissioned Security Officer Date: 06/07/2019 03:48:47 Dictated By: RM ESQUIVEL DO
--- OUTSIDE RECORDS SUMMARY | 2019-07-01 08:51 | XMS REPORT ---
Author Author KING Glendy GREENBERG [facility] Address [address] [place] [address] Care Team Providers Care Asparagus Cutter Name Role Phone YARI FORD Unavailable PROBLEMS Type Condition ICD9-CM Code [id number] Code Onset Dates Condition S tatus SNOMED Code Problem Primary insomnia F51.01 Active 397 2004 Problem Dysthymia F34.1 Active 81301085 Problem Essential hypertension I10 Active 46126105 ALLERGIES No Information ENCOUNTERS Encounter Location Date Diagnosis [place] [address] [address] Apr, [facility] [address] [address] Apr, [facility] [address] [address] Apr, [facility] [address] [address] Mar, [place] [address] [place] [id number] [address] [place] [address] Mar, Rectal bleeding K62.5 [place] [address] [address] Mar, Dysuria R30.0 ; Screening fo r STD (sexually transmitted disease) Z11.3 and Vaginal candidiasis B37.3 [place] [address] [place] [id number] [place] [address] 05 Feb, 2018 Essential hypertension I10 a nd Dysthymia F34.1 [facility] [address] [place] [id number] [address] [place] [address] Jan, Essential hypertension I10 ; Dysthymia F34.1 and Subacromial impingement of left shoulder M75.42 [facility] [address] [facility] [id number] [address] [place] [address] Dec, Subacromial impingement of l eft shoulder M75.42 and Spasm of muscle, back M62.830 [facility] [address] [facility] [id number] [address] [place] [address] Dec, Essential hypertension I10 [facility] [address] [place] [id number] [address] [place] [address] Dec, Essential hypertension I10 ; Dysthymia F34.1 ; Primary insomnia F51.01 and Seasonal allergic rhinitis, unspecified trigger J30.2 [facility] [address] [facility] [id number] [address] [place] [address] Nov, Essential hypertension I10 a nd Dysthymia F34.1 [facility] [address] [place] [id number] [address] [place] [address] October, [facility] [address] [facility] [id number] [address] [place] [address] October, Essential hypertension I10 [facility] [address] [place] [id number] [address] [place] [address] October, Essential hypertension I10 [facility] [address] [place] [id number] [address] [place] [address] Sep, [facility] [address] [place] [id number] [address] [place] [address] Sep, [facility] [address] [place] [address] Dec, 14 [facility] [address] [place] [id number] [address] [place] [address] Dec, [facility] [address] [place] [id number] [address] [place] [address] Mar, [facility] [place] [address] [place] [address] Mar, 13 [facility] [address] [id number] [address] [place] [phone] Mar, [facility] [address] [id number] [address] [place] [address] Nov, [facility] [address] [id number] [address] [place] [address] Nov, [facility] [address] [id number] [address] [place] [address] Sep, [facility] [address] [id number] [address] [place] [address] Apr, [facility] [address] [id number] [address] [place] [address] Apr, [facility] [address] [id number] [address] [place] [address] Apr, [facility] [address] [id number] [address] [place] [phone] Jun, [facility] [address] [id number] [address] [place] [phone] May, [facility] [address] [id number] [address] [place] [address] May, [facility] [address] [id number] [address] [place] [address] Mar, [facility] [address] [id number] [address] [place] [address] Mar, [facility] [address] [id number] [address] [place] [address] Mar, IMMUNIZATIONS No Known Immunizations SOCIAL HISTORY Never Assessed REASON FOR VISIT referral PLAN OF CARE VITAL SIGNS MEDICATIONS Unknown Medications RESULTS No Results PROCEDURES No Known procedures INSTRUCTIONS MEDICATIONS ADMINISTERED No Known Medications MEDICAL (GENERAL) HISTORY Type Description Date Medical History HTN Medical History Hypoglycemia, unspecified Medical History Hypoglycemia, unspecified Medical History Unspecified cellulitis and abscess of to e Surgical History tubal ligation 2003 Surgical History partial hyst 2007 Surgical History tonsillectomy (child) Surgical History foot surgery 2014 Hospitalization History surgery related
--- OUTSIDE RECORDS SUMMARY | 2019-07-01 08:51 | XMS REPORT ---
Author Author Glendy Spaulding Doctor Organization [facility] Address Unknown Phone Unavailable Care Team Providers Care Securities Sales Associate Name Role Phone Migration, Doctor Unavailable Unavailable PROBLEMS Type Condition ICD9-CM Code [id number] Code Onset Dates Condition S tatus SNOMED Code Problem Primary insomnia F51.01 Active 397 2004 Problem History of right hemicolectomy Z90.49 Active 420317422 Problem Essential hypertension I10 Active 73887201 Problem Dysthymia F34.1 Active 64433613 ALLERGIES No Information ENCOUNTERS Encounter Location Date Diagnosis [facility] [address] [place] [id number] [address] [place] [address] 16 Sep, 2018 [facility] [address] [place] [id number] [address] [place] [address] Aug, [facility] [address] [place] [id number] [address] [place] [address] Apr, Essential hypertension I10 ; Skin infection L08.9 and History of right hemicolectomy Z90.49 [facility] [address] [place] [id number] [address] [place] [address] Apr, [facility] [address] [place] [id number] [address] [place] [address] Apr, [facility] [address] [place] [id number] [address] [place] [address] Mar, [facility] [address] [place] [id number] [address] [place] [address] Mar, Rectal bleeding K62.5 [facility] [address] [place] [id number] [address] [place] [address] Mar, Dysuria R30.0 ; Screening fo r STD (sexually transmitted disease) Z11.3 and Vaginal candidiasis B37.3 [place] [address] [place] [id number] [address] [place] [address] 05 Feb, 2018 Essential hypertension I10 a nd Dysthymia F34.1 [facility] [address] [place] [id number] [address] [place] [address] Jan, Essential hypertension I10 ; Dysthymia F34.1 and Subacromial impingement of left shoulder M75.42 [facility] [address] [place] [id number] [address] [place] [address] Dec, Subacromial impingement of l eft shoulder M75.42 and Spasm of muscle, back M62.830 [facility] [address] [facility] [id number] [address] [place] [address] Dec, Essential hypertension I10 [place] [address] [place] [id number] [address] [place] [address] Dec, Essential hypertension I10 ; Dysthymia F34.1 ; Primary insomnia F51.01 and Seasonal allergic rhinitis, unspecified trigger J30.2 [facility] [address] [facility] [id number] [address] [place] [address] Nov, Essential hypertension I10 a nd Dysthymia F34.1 [facility] [address] [facility] [id number] [address] [place] [address] October, [facility] [address] [place] [id number] [address] [place] [address] October, Essential hypertension I10 [facility] [address] [place] [id number] [address] [place] [address] October, Essential hypertension I10 [facility] [address] [facility] [id number] [address] [place] [address] Sep, [facility] [address] [place] [id number] [address] [place] [address] Sep, [facility] [address] [place] [address] Dec, 14 [facility] [address] [place] [id number] [address] [place] [address] Dec, [facility] [address] [id number] [address] [place] [address] Mar, [facility] [address] [facility] [place] [address] Mar, [facility] [address] [id number] [address] [place] [address] Mar, [facility] [address] [id number] [address] [place] [address] Nov, [facility] [address] [id number] [address] [place] [address] Nov, [facility] [address] [id number] [address] [place] [address] Sep, [facility] [address] [id number] [address] [place] [address] Apr, [facility] [address] [id number] [address] [place] [address] Apr, [facility] [address] [id number] [address] [place] [address] Apr, [facility] [address] [id number] [address] [place] [address] Jun, [facility] [address] [id number] [address] [place] [address] May, [facility] [address] [id number] [address] [place] [address] May, [facility] [address] [id number] [address] [place] [address] Mar, [facility] [address] [id number] [address] [place] [address] Mar, [facility] [address] [id number] [address] [place] [address] Mar, IMMUNIZATIONS No Known Immunizations SOCIAL HISTORY Never Assessed REASON FOR VISIT [facility] [place] CARE VITAL SIGNS MEDICATIONS Medication Instructions Dosage Frequency Start Date End Date Duration S soniya Augmentin 875-125 mg 1 tablet by Oral route 2 times pe r day for 10 day(s) Dec, Active RESULTS No Results PROCEDURES No Known procedures INSTRUCTIONS MEDICATIONS ADMINISTERED No Known Medications MEDICAL (GENERAL) HISTORY Type Description Date Medical History HTN Medical History Hypoglycemia, unspecified Medical History Hypoglycemia, unspecified Medical History Unspecified cellulitis and abscess of to e Surgical History tubal ligation 2003 Surgical History partial hyst 2006 Surgical History tonsillectomy (child) Surgical History foot surgery 2015 Surgical History colon 2018 Hospitalization History surgery related Hospitalization History Issues with her colon 2018
--- OUTSIDE RECORDS SUMMARY | 2019-07-01 08:51 | XMS REPORT ---
Author Author KING Glendy YARI [facility] Address [address] [place] [address] Care Team Providers Care Tile Picker Name Role Phone YARI FORD Unavailable PROBLEMS Type Condition ICD9-CM Code [id number] Code Onset Dates Condition S tatus SNOMED Code Problem History of right hemicolectomy Z90.49 Active 486995373 Problem Primary insomnia F51.01 Active 397 2004 Problem Dysthymia F34.1 Active 68244674 Problem Essential hypertension I10 Active 50349123 ALLERGIES Substance Reaction Event Type Date Status Keflex rash Drug Allergy Apr, Active Latex rash Non Drug Allergy Apr, Active ENCOUNTERS Encounter Location Date Diagnosis [place] [address] [place] [id number] [address] [place] [address] Apr, Essential hypertension I10 ; Skin infection L08.9 and History of right hemicolectomy Z90.49 [facility] [address] [place] [id number] [address] [place] [address] Apr, [facility] [address] [place] [id number] [address] [place] [address] Apr, [facility] [id number] [place] [address] Mar, [facility] [address] [place] [id number] [address] [place] [address] Mar, Rectal bleeding K62.5 [place] [address] [place] [id number] [address] [place] [address] 04 Mar, 2018 Dysuria R30.0 ; Screening fo r STD (sexually transmitted disease) Z11.3 and Vaginal candidiasis B37.3 [place] [address] [place] [id number] [address] [place] [address] Feb, Essential hypertension I10 a nd Dysthymia F34.1 [facility] [address] [facility] [id number] [address] [place] [address] Jan, Essential hypertension I10 ; Dysthymia F34.1 and Subacromial impingement of left shoulder M75.42 [facility] [address] [facility] [id number] [address] [place] [address] Dec, Subacromial impingement of l eft shoulder M75.42 and Spasm of muscle, back M62.830 [facility] [address] [facility] [id number] [address] [place] [address] Dec, Essential hypertension I10 [place] [address] [facility] [id number] [address] [place] [address] Dec, Essential hypertension I10 ; Dysthymia F34.1 ; Primary insomnia F51.01 and Seasonal allergic rhinitis, unspecified trigger J30.2 [facility] [address] [facility] [id number] [address] [place] [address] Nov, Essential hypertension I10 a nd Dysthymia F34.1 [facility] [address] [facility] [id number] [address] [place] [address] October, [facility] [address] [facility] [id number] [address] [place] [address] October, Essential hypertension I10 [facility] [address] [facility] [id number] [address] [place] [address] October, Essential hypertension I10 [facility] [address] [facility] [id number] [address] [place] [address] Sep, [facility] [address] [place] [id number] [address] [place] [address] Sep, [facility] [address] [place] [address] Dec, 14 [facility] [address] [facility] [id number] [address] [place] [phone] Dec, [facility] [address] [id number] [address] [place] [address] Mar, [facility] [address] [facility] [place] [address] Mar, [facility] [address] [id number] [address] [place] [address] Mar, [facility] [address] [id number] [address] [place] [address] Nov, [facility] [address] [id number] [address] [place] [address] Nov, [facility] [address] [id number] [address] [place] [address] Sep, [facility] [address] [id number] [address] [place] [address] Apr, [facility] [address] [id number] [address] [place] [address] Apr, [facility] [address] [id number] [address] [place] [address] Apr, [facility] [address] [id number] [address] [place] [phone] Jun, [facility] [address] [id number] [address] [place] [address] May, [facility] [address] [id number] [address] [place] [address] May, [facility] [address] [id number] [address] [place] [address] Mar, [facility] [address] [id number] [address] [place] [address] Mar, [facility] [address] [id number] [address] [place] [address] Mar, IMMUNIZATIONS No Known Immunizations SOCIAL HISTORY Never Assessed REASON FOR VISIT [facility] f/u Cora Velazquez MA, Is on medications from the hospital but is unsure of t he names PLAN OF CARE Activity Details Follow Up 4 Weeks Reason:HTN VITAL SIGNS Height 68 in 2018-05-18 Weight 202.7 lbs 2018-05-18 Temperature 97.7 degrees Fahrenheit 2018-05-18 Heart Rate 89 bpm 2018-05-18 Respiratory Rate 2018-05-18 BMI 30.82 kg/m2 2018-05-18 Blood pressure systolic 146 mmHg 2018-05-18 Blood pressure diastolic 82 mmHg 2018-05-18 MEDICATIONS Medication Instructions Dosage Frequency Start Date End Date Duration S tatus Mupirocin 2 % Externally Three times a day 1 application to affecte d area 8h Apr, 5 day(s) Active Ranitidine HCl 150 MG Orally Once a day as needed 1 capsule at bedt tung Apr, 30 day(s) Active Fluticasone Propionate 50 MCG/ACT [...] of to e Surgical History tubal ligation 2004 Surgical History partial hyst 2006 Surgical History tonsillectomy (child) Surgical History foot surgery 2015 Surgical History colon 2018 Hospitalization History surgery related Hospitalization History Issues with her colon 2018
--- OUTSIDE RECORDS SUMMARY | 2019-07-01 08:51 | XMS REPORT ---
Author Author Glendy Spaulding Doctor Organization [facility] Address Unknown Phone Unavailable Care Team Providers Care Belt Buckle Maker Name Role Phone Migration, Doctor Unavailable Unavailable PROBLEMS Type Condition ICD9-CM Code RPL34-TU Code Onset Dates Condition S tatus SNOMED Code Problem Primary insomnia F51.01 Active 397 2004 Problem History of right hemicolectomy Z90.49 Active 523085520 Problem Essential hypertension I10 Active 94337670 Problem Dysthymia F34.1 Active 31278167 ALLERGIES No Information ENCOUNTERS Encounter Location Date Diagnosis [facility] [address] [place] [id number] [address] [place] [phone] October, [facility] [address] [place] [id number] [address] [place] [phone] Sep, [facility] [address] [address] Sep, Essential hypertension I10 ; Dysthymia F34.1 and Plantar fasciitis, bilateral M72.2 [facility] [address] [place] [id number] [address] [place] [phone] Aug, [facility] [address] [place] [id number] [address] [place] [address] Apr, Essential hypertension I10 ; Skin infection L08.9 and History of right hemicolectomy Z90.49 [facility] [address] [facility] [id number] [address] [place] [address] Apr, [facility] [address] [place] [id number] [address] [place] [phone] Apr, [facility] [address] [place] [id number] [address] [place] [address] Mar, [facility] [address] [place] [id number] [address] [place] [address] Mar, Rectal bleeding K62.5 [place] [address] [place] [id number] [address] [place] [address] Mar, Dysuria R30.0 ; Screening fo r STD (sexually transmitted disease) Z11.3 and Vaginal candidiasis B37.3 [place] [address] [place] [id number] [address] [place] [address] Feb, Essential hypertension I10 a nd Dysthymia F34.1 [place] [address] [place] [id number] [address] [place] [address] Jan, Essential hypertension I10 ; Dysthymia F34.1 and Subacromial impingement of left shoulder M75.42 [place] [address] [place] [id number] [address] [place] [address] Dec, Subacromial impingement of l eft shoulder M75.42 and Spasm of muscle, back M62.830 [place] [address] [place] [id number] [address] [place] [address] Dec, Essential hypertension I10 [place] [address] [place] [id number] [address] [place] [phone] Dec, Essential hypertension I10 ; Dysthymia F34.1 ; Primary insomnia F51.01 and Seasonal allergic rhinitis, unspecified trigger J30.2 [place] [address] [place] [id number] [address] [place] [address] Nov, Essential hypertension I10 a nd Dysthymia F34.1 [place] [address] [facility] [id number] [address] [place] [address] October, [place] [address] [place] [id number] [address] [place] [phone] October, Essential hypertension I10 [place] [address] [place] [id number] [address] [place] [phone] October, Essential hypertension I10 [place] [address] [place] [id number] [address] [place] [phone] 14 Sep, 2014 [facility] [address] [id number] [address] [place] [phone] Sep, [facility] [address] [facility] [address] Dec, 14 [facility] [address] [id number] [address] [place] [phone] Dec, [facility] [address] [id number] [address] [place] [phone] Mar, [facility] [address] [place] [address] Mar, 13 [facility] [address] [id number] [address] [place] [phone] Mar, [facility] [address] [id number] [address] [place] [phone] Nov, [facility] [address] [id number] [address] [place] [phone] Nov, [facility] [address] [id number] [address] [place] [phone] Sep, [facility] [address] [id number] [address] [place] [phone] Apr, [facility] [address] [id number] [address] [place] [phone] Apr, [facility] [address] [id number] [address] [place] [phone] Apr, [facility] [address] [id number] [address] [place] [phone] Jun, [facility] [address] [id number] [address] [place] [phone] 15 May, 2009 [facility] [address] [id number] [address] [place] [phone] 15 May, 2009 [facility] [address] [id number] [address] [place] [phone] Mar, [facility] [address] [facility] [id number] [address] [place] [phone] Mar, [facility] [address] [facility] [id number] [address] [place] [phone] Mar, IMMUNIZATIONS No Known Immunizations SOCIAL HISTORY Never Assessed REASON FOR VISIT EMR-[facility] PLAN OF CARE VITAL SIGNS MEDICATIONS Unknown [...]
--- OUTSIDE RECORDS SUMMARY | 2019-07-01 08:51 | XMS REPORT ---
Author Author Glendy Spaulding Doctor Organization [facility] Address Unknown Phone Unavailable Care Team Providers Care Statement Processor Name Role Phone Migration, Doctor Unavailable Unavailable PROBLEMS Type Condition ICD9-CM Code [id number] Code Onset Dates Condition S tatus SNOMED Code Problem History of right hemicolectomy Z90.49 Active 791930653 Problem GERD without esophagitis K21.9 Activ e 308007338 Problem Essential hypertension I10 Active 44242428 Problem Dysthymia F34.1 Active 62810472 Problem Primary insomnia F51.01 Active 397 2004 ALLERGIES No Information ENCOUNTERS Encounter Location Date Diagnosis [place] [address] [address] October, Essential hypertension I10 ; Dysthymia F34.1 and GERD without esophagitis K21.9 [place] [address] [id number] [place] [address] Sep, [facility] [address] [address] Sep, Essential hypertension I10 ; Dysthymia F34.1 and Plantar fasciitis, bilateral M72.2 [place] [address] [place] [id number] [place] [address] Aug, [facility] [address] [place] [id number] [address] [place] [address] Apr, Essential hypertension I10 ; Skin infection L08.9 and History of right hemicolectomy Z90.49 [facility] [address] [place] [id number] [address] [place] [address] 08 Apr, 2018 [place] [address] [place] [id number] [address] [place] [address] 08 Apr, 2018 [place] [address] [address] Mar, [place] [address] [address] Mar, Rectal bleeding K62.5 [place] [address] [address] Mar, Dysuria R30.0 ; Screening fo r STD (sexually transmitted disease) Z11.3 and Vaginal candidiasis B37.3 [place] [address] [address] Feb, Essential hypertension I10 a nd Dysthymia F34.1 [place] [address] [address] Jan, Essential hypertension I10 ; Dysthymia F34.1 and Subacromial impingement of left shoulder M75.42 [place] [address] [address] Dec, Subacromial impingement of l eft shoulder M75.42 and Spasm of muscle, back M62.830 [place] [address] [address] Dec, Essential hypertension I10 [place] [address] [address] Dec, Essential hypertension I10 ; Dysthymia F34.1 ; Primary insomnia F51.01 and Seasonal allergic rhinitis, unspecified trigger J30.2 [place] [address] [place] [id number] [place] [address] Nov, Essential hypertension I10 a nd Dysthymia F34.1 [place] [address] [address] October, [place] [address] [place] [id number] [place] [address] October, Essential hypertension I10 [place] [address] [address] October, Essential hypertension I10 [facility] [address] [id number] [address] [place] [phone] 14 Sep, 2014 [facility] [address] [id number] [address] [place] [address] Sep, [facility] [address] [place] [address] Dec, 14 [facility] [address] [id number] [address] [place] [address] Dec, [facility] [address] [id number] [address] [place] [phone] Mar, [facility] [address] [place] [address] Mar, 13 [facility] [address] [id number] [address] [place] [address] Mar, [facility] [address] [id number] [address] [place] [address] Nov, [facility] [address] [id number] [address] [place] [phone] Nov, [facility] [address] [id number] [address] [place] [address] Sep, [facility] [address] [id number] [address] [place] [address] Apr, [facility] [address] [id number] [address] [place] [phone] Apr, [facility] [address] [id number] [address] [place] [address] Apr, [facility] [address] [id number] [address] [place] [address] Jun, [facility] [address] [id number] [address] [place] [phone] 15 May, 2009 [facility] [address] [id number] [address] [place] [address] May, [facility] [address] [facility] [id number] [address] [place] [address] Mar, [facility] [address] [facility] [id number] [address] [place] [address] Mar, [facility] [address] [facility] [id number] [address] [place] [address] Mar, IMMUNIZATIONS No Known Immunizations SOCIAL HISTORY Never Assessed REASON FOR VISIT [facility] PLAN OF CARE VITAL SIGNS MEDICATIONS No Known Medications RESULTS No Results PROCEDURES No Known procedures INSTRUCTIONS MEDICATIONS ADMINISTERED No Known Medications MEDICAL (GENERAL) HISTORY Type Description Date Medical History HTN Medical History Hypoglycemia, unspecified Medical History Hypoglycemia, unspecified Medical History Unspecified cellulitis and abscess of to e Surgical History tubal ligation 2004 Surgical History partial hyst 2006 Surgical History tonsillectomy (child) Surgical History foot surgery 2014 Surgical History colon 2018 Hospitalization History surgery related Hospitalization History Issues with her colon 2018
--- OUTSIDE RECORDS SUMMARY | 2019-07-01 08:51 | XMS REPORT ---
Author Author KING Glendy [facility] Address [address] [place] [address] Care Team Providers Care Forest Technician Name Role Phone YARI FORD Unavailable PROBLEMS Type Condition ICD9-CM Code PEF09-HC Code Onset Dates Condition S tatus SNOMED Code Problem History of right hemicolectomy Z90.49 Active 246973061 Problem GERD without esophagitis K21.9 Activ e 188125076 Problem Essential hypertension I10 Active 32854766 Problem Dysthymia F34.1 Active 89879149 Problem Primary insomnia F51.01 Active 397 2004 ALLERGIES No Information ENCOUNTERS Encounter Location Date Diagnosis [address] [address] Dec, [facility] [address] [place] [id number] [address] [place] [address] October, Essential hypertension I10 ; Dysthymia F34.1 and GERD without esophagitis K21.9 [facility] [address] [place] [id number] [address] [place] [address] Sep, [facility] [address] [place] [id number] [address] [place] [address] Sep, Essential hypertension I10 ; Dysthymia F34.1 and Plantar fasciitis, bilateral M72.2 [facility] [address] [facility] [id number] [address] [place] [address] Aug, [facility] [address] [place] [id number] [address] [place] [address] 20 Apr, 2018 Essential hypertension I10 ; Skin infection L08.9 and History of right hemicolectomy Z90.49 [facility] [address] [place] [id number] [address] [place] [address] 08 Apr, 2018 [place] [address] [address] Apr, [place] [address] [address] Mar, [place] [address] [address] Mar, Rectal bleeding K62.5 [place] [address] [address] Mar, Dysuria R30.0 ; Screening fo r STD (sexually transmitted disease) Z11.3 and Vaginal candidiasis B37.3 [place] [address] [address] Feb, Essential hypertension I10 a nd Dysthymia F34.1 [place] [address] [address] Jan, Essential hypertension I10 ; Dysthymia F34.1 and Subacromial impingement of left shoulder M75.42 [place] [address] [address] Dec, Subacromial impingement of l eft shoulder M75.42 and Spasm of muscle, back M62.830 [place] [address] [address] Dec, Essential hypertension I10 [place] [address] [address] Dec, Essential hypertension I10 ; Dysthymia F34.1 ; Primary insomnia F51.01 and Seasonal allergic rhinitis, unspecified trigger J30.2 [place] [address] [address] Nov, Essential hypertension I10 a nd Dysthymia F34.1 [place] [address] [address] October, [place] [address] [id number] [address] [place] [address], [place] [address] October, Essential hypertension I10 [facility] [address] [id number] [address] [place] [address], [place] [address] October, Essential hypertension I10 [facility] [address] [id number] [address] [place] [address], [place] [address] 14 Sep, 2014 [facility] [address] [id number] [address] [place] [address] Sep, [facility] [address] [facility] [place] [address] Dec, 14 [facility] [address] [id number] [address] [place] [address] Dec, [facility] [address] [facility] [id number] [address] [place] [address] Mar, [facility] [address] [facility] [place] [address] Mar, 13 [facility] [address] [id number] [address] [place] [address] Mar, [facility] [address] [id number] [address] [place] [address] Nov, [facility] [address] [id number] [address] [place] [address] Nov, [facility] [address] [id number] [address] [place] [address] Sep, [facility] [address] [id number] [address] [place] [address] Apr, [facility] [address] [id number] [address] [place] [address] Apr, [facility] [address] [id number] [address] [place] [address] Apr, [facility] [address] [id number] [address] [place] [address] Jun, [facility] [address] [facility] [id number] [address] [place] [address] May, [facility] [address] [facility] [id number] [address] [place] [address] May, [facility] [address] [facility] [id number] [address] [place] [address] Mar, [facility] [address] [facility] [id number] [address] [place] [address] Mar, [facility] [address] [facility] [id number] [address] [place] [address] Mar, IMMUNIZATIONS No Known Immunizations SOCIAL HISTORY Never Assessed REASON FOR VISIT Re:Schedule Follow Up Appointment PLAN OF CARE VITAL SIGNS MEDICATIONS Unknown [...]
--- OUTSIDE RECORDS SUMMARY | 2019-07-01 08:51 | XMS REPORT ---
Author Author KING Glendy YARI [facility] Address [address] [place] [address] Care Team Providers Care Software Tools Engineer Name Role Phone YARI FORD Unavailable PROBLEMS Type Condition ICD9-CM Code NBD91-PQ Code Onset Dates Condition S tatus SNOMED Code Problem Primary insomnia F51.01 Active 397 2004 Problem Dysthymia F34.1 Active 60063256 Problem Essential hypertension I10 Active 87492440 ALLERGIES No Information ENCOUNTERS Encounter Location Date Diagnosis [place] [address] [address] Apr, [facility] [address] [address] Apr, [facility] [address] [address] Apr, [facility] [address] [address] Mar, [place] [address] [place] [id number] [place] [address] Mar, Rectal bleeding K62.5 [place] [address] [address] Mar, Dysuria R30.0 ; Screening fo r STD (sexually transmitted disease) Z11.3 and Vaginal candidiasis B37.3 [place] [address] [place] [id number] [place] [address] 05 Feb, 2018 Essential hypertension I10 a nd Dysthymia F34.1 [place] [address] [place] [id number] [address] [place] [address] Jan, Essential hypertension I10 ; Dysthymia F34.1 and Subacromial impingement of left shoulder M75.42 [facility] [address] [facility] [id number] [address] [place] [address] Dec, Subacromial impingement of l eft shoulder M75.42 and Spasm of muscle, back M62.830 [facility] [address] [facility] [id number] [address] [place] [address] Dec, Essential hypertension I10 [facility] [address] [place] [id number] [address] [place] [address] Dec, Essential hypertension I10 ; Dysthymia F34.1 ; Primary insomnia F51.01 and Seasonal allergic rhinitis, unspecified trigger J30.2 [facility] [address] [facility] [id number] [address] [place] [address] Nov, Essential hypertension I10 a nd Dysthymia F34.1 [facility] [address] [place] [id number] [address] [place] [address] October, [facility] [address] [facility] [id number] [address] [place] [address] October, Essential hypertension I10 [facility] [address] [place] [id number] [address] [place] [address] October, Essential hypertension I10 [facility] [address] [place] [id number] [address] [place] [address] Sep, [facility] [address] [place] [id number] [address] [place] [address] Sep, [facility] [address] [place] [address] Dec, 14 [facility] [address] [place] [id number] [address] [place] [address] Dec, [facility] [address] [place] [id number] [address] [place] [address] Mar, [facility] [address] [place] [address] Mar, 13 [facility] [address] [id number] [address] [place] [address] Mar, [facility] [address] [id number] [address] [place] [address] Nov, [facility] [address] [id number] [address] [place] [address] Nov, [facility] [address] [id number] [address] [place] [address] Sep, [facility] [address] [id number] [address] [place] [address] Apr, [facility] [address] [id number] [address] [place] [address] Apr, [facility] [address] [id number] [address] [place] [address] Apr, [facility] [address] [id number] [address] [place] [phone] Jun, [facility] [address] [id number] [address] [place] [address] May, [facility] [address] [id number] [address] [place] [phone] May, [facility] [address] [id number] [address] [place] [address] Mar, [facility] [address] [id number] [address] [place] [phone] Mar, [facility] [address] [id number] [address] [place] [address] Mar, IMMUNIZATIONS No Known Immunizations SOCIAL HISTORY Never Assessed REASON FOR VISIT meds for surgery in am- Pt needs referal for Eddie 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 referal placed for continued care-- Akhil Ward RN PLAN OF CARE VITAL SIGNS MEDICATIONS Unknown [...]
--- OUTSIDE RECORDS SUMMARY | 2019-07-01 08:52 | XMS REPORT | Continuity of Care Document ---
Author Organization Unknown Address Unknown Phone Unavailable Allergies Active Description Code Type Severity Reaction Onset Reported/Identified Relationship to Patient Clinical Status Yes Keflex Drug Allergy N/A N/A 04/20/2009 Yes lisinopril Drug Allergy N/A N/A 11/09/2010 Yes cephalexin [id number] Drug Allerg y Moderate rash 05/30/2019 Yes latex [id number] Drug Allergy Moderate HIVES AND SWELL 05/30/2019 Medications There is no data. Problems Date Dx Coded Attending Type Code Diagnosis Diagnosed By 04/20/2009 LUCAS VARELA DDS 296 .90 EPISODIC MOOD DISORDERS 04/20/2009 LUCAS VARLEA DDS 626 .4 irregular length of menstrual periods 04/20/2009 LUCAS VARELA DDS 780 .79 feelings of weakness 04/20/2009 YAMILETH FERRERA MD 296.9 0 EPISODIC MOOD DISORDERS 04/20/2009 YAMILETH FERRERA MD 626.4 irregular length of menstrual periods 04/20/2009 YAMILETH FERRERA MD 780.7 9 feelings of weakness 06/12/2009 LUCAS VARELA DDS 280 .9 ANEMIA HYPOCHROMIC / MICROCYTIC 06/12/2009 LUCAS VARELA DDS 626 .6 heavy bleeding between periods (metrorrhagia) 06/12/2009 LUCAS VARELA DDS V72 .31 Pelvic Exam (Internal) 06/12/2009 YAMILETH FERRERA MD 280.9 ANEMIA HYPOCHROMIC / MICROCYTIC 06/12/2009 YAMILETH FERRERA MD 626.6 heavy bleeding between periods (metrorrhagia) 06/12/2009 YAMILETH FERRERA MD V72.3 1 Pelvic Exam (Internal) 07/11/2009 LUCAS VARELA DDS 401 .1 ESSENTIAL HYPERTENSION BENIGN 07/11/2009 LUCAS VARELA DDS V72 .84 visit for: preoperative exam 07/11/2009 YAMILETH FERRERA MD 401.1 ESSENTIAL HYPERTENSION BENIGN 07/11/2009 YAMILETH FERRERA MD V72.8 4 visit for: preoperative exam 05/17/2010 NICHOLE BIGGSS, LUCAS B 381 .81 EUSTACHIAN TUBE DYSFUNCTION 05/17/2010 NICHOLE DDS, LUCAS B 780 .4 DIZZINESS AND VERTIGO 05/17/2010 NICHOLE BIGGSS, LUCAS B 786 .50 CHEST PAIN 05/17/2010 YAMILETH FERRERA MD 381.8 1 EUSTACHIAN TUBE DYSFUNCTION 05/17/2010 YAMILETH FERRERA MD 780.4 DIZZINESS AND VERTIGO 05/17/2010 YAMILETH FERRERA MD 786.5 0 CHEST PAIN 08/06/2010 NICHOLE BIGGSS, LUCAS B 784 .0 HEADACHE 08/06/2010 YAMILETH FERRERA MD 784.0 HEADACHE 10/03/2010 NICHOLE BIGGSS, LUCAS B 527 .5 SIALOLITHIASIS 10/03/2010 YAMILETH FERRERA MD 527.5 SIALOLITHIASIS 10/09/2010 NICHOLE KALYANS, LUCAS B V68 .1 ISSUE OF REPEAT PRESCRIPTIONS 10/09/2010 YAMILETH FERRERA MD V68.1 ISSUE OF REPEAT PRESCRIPTIONS 04/25/2013 NICHOLE MCKEON, LUCAS B 251 .2 HYPOGLYCEMIA 04/25/2013 YAMILETH FERRERA MD 251.2 HYPOGLYCEMIA 01/16/2014 YAMILETH FERRERA MD 681.1 0 UNSPECIFIED CELLULITIS AND ABSCESS OF TOE 01/16/2014 YAMILETH FERRERA MD V06.1 TDAP DX 05/01/2018 KASHMIR HUMPHRIES DO Ot B96.81 HELICOBACTER PYLORI THE CAUSE OF DISE 05/01/2018 KASHMIR HUMPHRIES DO Ot D12.4 BENIGN NEOPLASM OF DESCENDING COLON 05/01/2018 KASHMIR HUMPHRIES DO Ot D64.9 ANEMIA, UNSPECIFIED 05/01/2018 KASHMIR HUMPHRIES DO Ot F32.9 MAJOR DEPRESSIVE DISORDER, SINGLE EPISOD 05/01/2018 KASHMIR HUMPHRIES DO Ot F41.9 ANXIETY DISORDER, UNSPECIFIED 05/01/2018 KASHMIR HUMPHRIES DO Ot I10 ESSENTIAL (PRIMARY) HYPERTENSION 05/01/2018 KASHMIR HUMPHRIES DO Ot K25.9 GASTRIC ULCER, UNSP ACUTE OR CHRONIC, 05/01/2018 HUMPHRIES DO, KASHMIR K Ot K29.50 UNSPECIFIED CHRONIC GASTRITIS WITHOUT BL 05/01/2018 HUMPHRIES DO, KASHMIR K Ot K63.5 POLYP OF COLON 05/01/2018 HUMPHRIES DO, KASHMIR K Ot K92.1 MELENA 05/01/2018 HUMPHRIES DO, KASHMIR K Ot R55 SYNCOPE AND COLLAPSE 05/01/2018 HUMPHRIES DO, KASHMIR K Ot Z80.0 FAMILY HISTORY OF MALIGNANT NEOPLASM OF 05/04/2018 HUMPHRIES DO, KASHMIR K Ot D64.9 ANEMIA, UNSPECIFIED 05/04/2018 HUMPHRIES DO, KAHSMIR K Ot F32.9 MAJOR DEPRESSIVE DISORDER, SINGLE [...] FAMILY HISTORY OF MALIGNANT NEOPLASM OF 05/06/2018 ROBBIE FOSTER, MATILDE Bowers Ot K63.9 DISEASE OF INTESTINE, UNSPECIFIED 05/06/2018 ROBBIE FOSTER, MATILDE Bowers Ot Z01.812 ENCOUNTER FOR PREPROCEDURAL LABORATORY E 05/06/2018 MATILDE AVALOS MD, Ot Z11.2 ENCOUNTER FOR SCREENING FOR OTHER BACTER 05/06/2018 KASHMIR HUMPHRIES DO Ot B96.81 HELICOBACTER PYLORI THE CAUSE OF DISE 05/06/2018 CAROLYN HUMPHRIES DOA K Ot D12.4 BENIGN NEOPLASM OF DESCENDING COLON 05/06/2018 CAROLYN HUMPHRIES DOA K Ot D64.9 ANEMIA, UNSPECIFIED 05/06/2018 CAROLYN HUMPHRIES DOA K Ot F32.9 MAJOR DEPRESSIVE DISORDER, SINGLE EPISOD 05/06/2018 CAROLYN HUMPHRIES DOA K Ot F41.9 ANXIETY DISORDER, UNSPECIFIED 05/06/2018 YANDEL DEL ANGEL KASHMIR K Ot I10 ESSENTIAL (PRIMARY) HYPERTENSION 05/06/2018 CAROLYN HUMPHRIES DOA K Ot K25.9 GASTRIC ULCER, UNSP ACUTE OR CHRONIC, 05/06/2018 CAROLYN HUMPHRIES DOA K Ot K29.50 UNSPECIFIED CHRONIC GASTRITIS WITHOUT BL 05/06/2018 CAROLYN HUMPHRIES DOA K Ot R55 SYNCOPE AND COLLAPSE 05/06/2018 KASHMIR HUMPHRIES DO K Ot Z80.0 FAMILY HISTORY OF MALIGNANT NEOPLASM OF 05/09/2018 ROBBIE FOSTER, MATILDE Bowers Ot D50.0 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 05/09/2018 ROBBIE FOSTER, MATILDE Bowers Ot E66.9 OBESITY, UNSPECIFIED 05/09/2018 MATILDE AVALOS MD, Ot F32.9 MAJOR DEPRESSIVE DISORDER, SINGLE EPISOD 05/09/2018 MATILDE AVALOS MD, Ot F41.9 ANXIETY DISORDER, UNSPECIFIED 05/09/2018 ROBBIE FOSTER, MATILDE Bowers Ot G47.33 OBSTRUCTIVE SLEEP APNEA (ADULT) (PEDIATR 05/09/2018 MATILDE AVALOS MD Ot G56.93 UNSPECIFIED MONONEUROPATHY OF BILATERAL 05/09/2018 MATILDE AVALOS MD Ot I1 0 ESSENTIAL (PRIMARY) HYPERTENSION 05/09/2018 MATILDE AVALOS MD, Ot K21.9 GASTRO-ESOPHAGEAL REFLUX DISEASE WITHOUT 05/09/2018 MATILDE AVALOS MD Ot K63.9 DISEASE OF INTESTINE, UNSPECIFIED 05/09/2018 MATILDE AVALOS MD Ot K92.2 GASTROINTESTINAL HEMORRHAGE, UNSPECIFIED 05/09/2018 MATILDE AVALOS MD, Ot Z68.31 BODY MASS INDEX (BMI) 31.0-31.9, ADULT 05/09/2018 ROBBIE FOSTER, MATILDE Bowers Ot Z87.09 PERSONAL HISTORY OF OTHER DISEASES OF TH 06/12/2018 HUMPHRIES DO, KASHMIR K Ot B96.81 HELICOBACTER PYLORI THE CAUSE OF DISE 06/12/2018 HUMPHRIES DO, KASHMIR K Ot D12.4 BENIGN NEOPLASM OF DESCENDING COLON 06/12/2018 HUMPHRIES DO, KASHMIR K Ot D64.9 ANEMIA, UNSPECIFIED 06/12/2018 HUMPHRIES DO, KASHMIR K Ot F32.9 MAJOR DEPRESSIVE DISORDER, SINGLE EPISOD 06/12/2018 HUMPHRIES DO, KASHMIR K Ot F41.9 ANXIETY DISORDER, UNSPECIFIED 06/12/2018 HUMPHRIES DO, KASHMIR K Ot I10 ESSENTIAL (PRIMARY) HYPERTENSION 06/12/2018 HUMPHRIES DO, KASHMIR K Ot K25.9 GASTRIC ULCER, UNSP ACUTE OR CHRONIC, 06/12/2018 HUMPHRIES DO, KASHMIR K Ot K29.50 UNSPECIFIED CHRONIC GASTRITIS WITHOUT BL 06/12/2018 HUMPHRIES DO, KASHMIR K Ot R55 SYNCOPE AND COLLAPSE 06/12/2018 HUMPHRIES DO, KASHMIR K Ot Z80.0 FAMILY HISTORY OF MALIGNANT NEOPLASM OF 10/13/2018 HUMPHRIES DO, KASHMIR K Ot B96.81 HELICOBACTER PYLORI THE CAUSE OF DISE 10/13/2018 HUMPHRIES DO, KASHMIR K Ot D12.4 BENIGN NEOPLASM OF DESCENDING COLON 10/13/2018 HUMPHRIES DO, KASHMIR K Ot D64.9 ANEMIA, UNSPECIFIED 10/13/2018 HUMPHRIES DO, KASHMIR K Ot F32.9 MAJOR DEPRESSIVE DISORDER, SINGLE EPISOD 10/13/2018 HUMPHRIES DO, KASHMIR K Ot F41.9 ANXIETY DISORDER, UNSPECIFIED 10/13/2018 HUMPHRIES DO, KASHMIR K Ot I10 ESSENTIAL (PRIMARY) HYPERTENSION 10/13/2018 HUMPHRIES DO, KASHMIR K Ot K25.9 GASTRIC ULCER, UNSP ACUTE OR CHRONIC, 10/13/2018 HUMPHRIES DO, KASHMIR K Ot K29.50 UNSPECIFIED CHRONIC GASTRITIS WITHOUT BL 10/13/2018 HUMPHRIES DO, KASHMIR K Ot R55 SYNCOPE AND COLLAPSE 10/13/2018 HUMPHRIES DO, KASHMIR K Ot Z80.0 FAMILY HISTORY OF MALIGNANT NEOPLASM OF 05/30/2019 AN MCDONALD DO Ot Z01.8 18 ENCOUNTER FOR OTHER PREPROCEDURAL EXAMIN 05/31/2019 TAMARA DEL ANGEL AN B Ot Z01.8 18 ENCOUNTER FOR OTHER PREPROCEDURAL EXAMIN 05/31/2019 AN MCDONALD DO B Ot Z01.8 18 ENCOUNTER FOR OTHER PREPROCEDURAL EXAMIN 06/16/2019 TAMARA ANA DEL ANGELIC B Ot D64.9 ANEMIA, UNSPECIFIED 06/16/2019 TAMARA ANA DEL ANGELIC B Ot E66.9 OBESITY, UNSPECIFIED 06/16/2019 ANNPETR ANA DEL ANGELIC B Ot F32.9 MAJOR DEPRESSIVE DISORDER, SINGLE EPISOD 06/16/2019 ANNPETR ANA DEL ANGELIC B Ot F41.9 ANXIETY DISORDER, UNSPECIFIED 06/16/2019 ANNPETR ANA DEL ANGELIC B Ot H44.9 UNSPECIFIED DISORDER OF GLOBE 06/16/2019 AN MCDONALD DO B Ot I10 ESSENTIAL (PRIMARY) HYPERTENSION 06/16/2019 ANNPETR ANA DEL ANGELIC B Ot K21.0 GASTRO-ESOPHAGEAL REFLUX DISEASE WITH ES 06/16/2019 AN MCDONALD DO B Ot K29.5 0 UNSPECIFIED CHRONIC GASTRITIS WITHOUT BL 06/16/2019 ANA MCDONALD DOIC B Ot K63.5 POLYP OF COLON 06/16/2019 ANA MCDONALD DOIC B Ot K64.8 OTHER HEMORRHOIDS 06/16/2019 AN MCDONALD DO Ot Z68.3 1 BODY MASS INDEX (BMI) 31.0-31.9, ADULT 06/16/2019 ANA MCDONALD DOIC B Ot Z80.0 FAMILY HISTORY OF MALIGNANT NEOPLASM OF 06/16/2019 ANA MCDONALD DOIC B Ot Z82.4 9 FAMILY HX OF ISCHEM HEART DIS AND OTH DI 06/16/2019 AN MCDONALD DO B Ot Z88.1 ALLERGY STATUS TO OTHER ANTIBIOTIC AGENT 06/16/2019 ANA MCDONALD DOIC B Ot Z90.4 9 ACQUIRED ABSENCE OF OTHER SPECIFIED PART 06/16/2019 AN MCDONALD DO Ot Z90.7 10 ACQUIRED ABSENCE OF BOTH CERVIX AND UTER 06/16/2019 AN MCDONALD DO B Ot Z90.8 9 ACQUIRED ABSENCE OF OTHER ORGANS 06/16/2019 ANA MCDONALD DOIC B Ot Z91.0 40 LATEX ALLERGY STATUS 06/16/2019 AN MCDONALD DO B Ot Z98.0 INTESTINAL BYPASS AND ANASTOMOSIS STATUS 06/18/2019 ANA MCDONALD DOIC B Ot D64.9 ANEMIA, UNSPECIFIED 06/18/2019 ANA MCDONALD DOIC B Ot E66.9 OBESITY, UNSPECIFIED 06/18/2019 ANA MCDONALD DOIC B Ot F32.9 MAJOR DEPRESSIVE DISORDER, SINGLE EPISOD 06/18/2019 ANA MCDONALD DOIC B Ot F41.9 ANXIETY DISORDER, UNSPECIFIED 06/18/2019 ANA MCDONALD DOIC B Ot H44.9 UNSPECIFIED DISORDER OF GLOBE 06/18/2019 ANA MCDONALD DOIC B Ot I10 ESSENTIAL (PRIMARY) HYPERTENSION 06/18/2019 ANA MCDONALD DOIC B Ot K21.0 GASTRO-ESOPHAGEAL REFLUX DISEASE WITH ES 06/18/2019 AN MCDONALD DO B Ot K29.5 0 UNSPECIFIED CHRONIC GASTRITIS WITHOUT BL 06/18/2019 ANA MCDONALD DOIC B Ot K63.5 POLYP OF COLON 06/18/2019 ANA MCDONALD DOIC B Ot K64.8 OTHER HEMORRHOIDS 06/18/2019 AN MCDONALD DO Ot Z68.3 1 BODY MASS INDEX (BMI) 31.0-31.9, ADULT 06/18/2019 AN MCDONALD DO B Ot Z80.0 FAMILY HISTORY OF MALIGNANT NEOPLASM OF 06/18/2019 AN MCDONALD DO B Ot Z82.4 9 FAMILY HX OF ISCHEM HEART DIS AND OTH DI 06/18/2019 AN MCDONALD DO B Ot Z88.1 ALLERGY STATUS TO OTHER ANTIBIOTIC AGENT 06/18/2019 AN MCDONALD DO B Ot Z90.4 9 ACQUIRED ABSENCE OF OTHER SPECIFIED PART 06/18/2019 AN MCDONALD DO B Ot Z90.7 10 ACQUIRED ABSENCE OF BOTH CERVIX AND UTER 06/18/2019 ANA MCDONALD DOIC B Ot Z90.8 9 ACQUIRED ABSENCE OF OTHER ORGANS 06/18/2019 ANA MCDONALD DOIC B Ot Z91.0 40 LATEX ALLERGY STATUS 06/18/2019 ANA MCDONALD DOIC B Ot Z98.0 INTESTINAL BYPASS AND ANASTOMOSIS STATUS Procedures Code Description [place] [address] ROUT INE VENIPUNCTURE 04/25/2013 17926 CBC 04/26/[id number] GF R CALC (RESULT ONLY) 04/26/2013 38168 CMP 04/26/2013 04067 XRAY FOOT LEFT COMP MIN 3 VIEWS 01/16/2014 GENERAL S JERRY VILLALOBOS 01/23/2014 [id number] RE SECTION OF RIGHT LARGE INTESTINE, PERC 05/07/2018 [id number] RO BOTIC ASSISTED PROCEDURE OF TRUNK NUNO 05/07/2018 Results Test Result Range CBC - 11/11/17 17:18 WHITE BLOOD CELL COUNT 12.0 Thousand/uL 3.8-10.8 RED BLOOD CELL COUNT 4.25 Million/uL 3.8 0-5.10 HEMOGLOBIN 14.1 g/dL 11.7-15.5 HEMATOCRIT 39.8 % 35.0-45.0 MCV 93.6 fL 80.0-100.0 MCH 33.2 pg 27.0-33.0 MCHC 35.4 g/dL 32.0-36.0 RDW 12.3 % 11.0-15.0 PLATELET COUNT 210 Thousand/uL 140-400 MPV 11.6 fL 7.5-12.5 ABSOLUTE NEUTROPHILS 8100 cells/uL 1500- 7800 ABSOLUTE LYMPHOCYTES 2844 cells/uL 850-3 900 ABSOLUTE MONOCYTES 960 cells/uL 200-950 ABSOLUTE EOSINOPHILS [...] <5.0 NON HDL CHOLESTEROL 131 mg/dL (calc) <13 0 A1C - 11/17/17 12:47 HEMOGLOBIN A1c 4.5 % of total Hgb <5.7 CULTURE, GENITAL - 04/01/18 13:18 CULTURE, GENITAL SEE NOTE NRG Whole blood hemoglobin and hematocrit pa roque - 04/28/18 17:37 Venous blood hemoglobin measurement (mass/volume) 9.4 g/dL 11.5-16.0 Blood hematocrit (volume fraction) 27 % 35-52 Whole blood basic metabolic panel - 03/31 07/16 17:37 Serum or plasma sodium measurement (moles/volume) 137 mmol/L 135-145 Serum or plasma potassium measurement (moles/volume) 3.5 mmol/L 3.6-5.0 Serum or plasma chloride measurement (moles/volume) 109 mmol/L 98-107 Carbon dioxide 19 mmol/L 21-32 Serum or plasma anion gap determination (moles/volume) 9 mmol/L 5-14 Serum or plasma urea nitrogen measurement (mass/volume ) 20 mg/dL 7-18 Serum or plasma creatinine measurement (mass/volume) 0.73 mg/dL 0.60-1.30 Serum or plasma urea nitrogen/creatinine mass ratio 27 NRG Serum or plasma creatinine measurement w ith calculation of estimated glomerular filtration rate > NRG Serum or plasma glucose measurement (mass/volume) 94 mg/dL 70-105 Serum or plasma calcium measurement (mass/volume) 9.0 mg/dL 8.5-10.1 Automated blood complete blood count (he mogram) panel - 04/28/18 17:37 Blood leukocytes automated count (number/volume) 11.3 10*3/uL 4.3-11.0 Blood erythrocytes automated count (number/volume) 2.83 10*6/uL 4.35-5.85 Venous blood hemoglobin measurement (mass/volume) 9.3 g/dL 11.5-16.0 Blood hematocrit (volume fraction) 27 % 35-52 Automated erythrocyte mean corpuscular volume 95 [ foz_us] 80-99 Automated erythrocyte mean corpuscular h emoglobin (mass per erythrocyte) 33 pg 25-34 Automated erythrocyte mean corpuscular h emoglobin concentration measurement (mass/volume) 35 g/dL 32-36 Automated erythrocyte distribution width ratio 12. 6 % 10.0- 14.5 Automated blood platelet count (count/volume) 167 10*3/uL 130-400 Automated blood platelet mean volume measurement 12.1 [foz_us] 7.4-10.4 Complete blood count (CBC) with automate d white blood cell (WBC) differential - 04/30/18 05:36 Blood leukocytes automated count (number/volume) 5.8 10*3/uL 4.3-11.0 Blood erythrocytes automated count (number/volume) 2.54 10*6/uL 4.35-5.85 Venous blood hemoglobin measurement (mass/volume) 8.2 g/dL 11.5-16.0 Blood hematocrit (volume fraction) 25 % 35-52 Automated erythrocyte mean corpuscular volume 97 [ foz_us] 80-99 Automated erythrocyte mean corpuscular h emoglobin (mass per erythrocyte) 32 pg 25-34 Automated erythrocyte mean corpuscular h emoglobin concentration measurement (mass/volume) 34 g/dL 32-36 Automated erythrocyte distribution width ratio 12. 9 % 10.0- 14.5 Automated blood platelet count (count/volume) 108 10*3/uL [...] 10*3 1.0-4.0 Blood monocytes automated count (number/volume) 0. 5 10*3 0.0-1.0 Automated eosinophil count 0.0 10*3/uL 0 .0-0.3 Automated blood basophil count (count/volume) 0.0 10*3/uL 0.0-0.1 Whole blood basic metabolic panel - 1108/16 05:36 Serum or plasma sodium measurement (moles/volume) 139 mmol/L 135-145 Serum or plasma potassium measurement (moles/volume) 4.2 mmol/L 3.6-5.0 Serum or plasma chloride measurement (moles/volume) 115 mmol/L 98-107 Carbon dioxide 18 mmol/L 21-32 Serum or plasma anion gap determination (moles/volume) 6 mmol/L 5-14 Serum or plasma urea nitrogen measurement (mass/volume ) 7 mg/dL 7-18 Serum or plasma creatinine measurement (mass/volume) 0.61 mg/dL 0.60-1.30 Serum or plasma urea nitrogen/creatinine mass ratio 11 NRG Serum or plasma creatinine measurement w ith calculation of estimated glomerular filtration rate > NRG Serum or plasma glucose measurement (mass/volume) 86 mg/dL 70-105 Serum or plasma calcium measurement (mass/volume) 8.4 mg/dL 8.5-10.1 Complete blood count (CBC) with automate d white blood cell (WBC) differential - 05/01/18 06:05 Blood leukocytes automated count (number/volume) 10.0 10*3/uL 4.3-11.0 Blood erythrocytes automated count (number/volume) 2.53 10*6/uL 4.35-5.85 Venous blood hemoglobin measurement (mass/volume) 8.4 g/dL 11.5-16.0 Blood hematocrit (volume fraction) 24 % 35-52 Automated erythrocyte mean corpuscular volume 96 [ foz_us] 80-99 Automated erythrocyte mean corpuscular h emoglobin (mass per erythrocyte) 33 pg 25-34 Automated erythrocyte mean corpuscular h emoglobin concentration measurement (mass/volume) 35 g/dL 32-36 Automated erythrocyte distribution width ratio 13. 4 % 10.0- 14.5 Automated blood platelet count (count/volume) 183 10*3/uL [...] 10*3 1.0-4.0 Blood monocytes automated count (number/volume) 1. 0 10*3 0.0-1.0 Automated eosinophil count 0.1 10*3/uL 0 .0-0.3 Automated blood basophil count (count/volume) 0.0 10*3/uL 0.0-0.1 Complete blood count (CBC) with automate d white blood cell (WBC) differential - 05/06/18 12:35 Blood leukocytes automated count (number/volume) 6.5 10*3/uL 4.3-11.0 Blood erythrocytes automated count (number/volume) 3.13 10*6/uL 4.35-5.85 Venous blood hemoglobin measurement (mass/volume) 10.0 g/dL 11.5-16.0 Blood hematocrit (volume fraction) 30 % 35-52 Automated erythrocyte mean corpuscular volume 97 [ foz_us] 80-99 Automated erythrocyte mean corpuscular h emoglobin (mass per erythrocyte) 32 pg 25-34 Automated erythrocyte mean corpuscular h emoglobin concentration measurement (mass/volume) 33 g/dL 32-36 Automated erythrocyte distribution width ratio 14. 7 % 10.0- 14.5 Automated blood platelet count (count/volume) 254 10*3/uL [...] 10*3 1.0-4.0 Blood monocytes automated count (number/volume) 0. 6 10*3 0.0-1.0 Automated eosinophil count 0.0 10*3/uL 0 .0-0.3 Automated blood basophil count (count/volume) 0.0 10*3/uL 0.0-0.1 Whole blood basic metabolic panel - 11/02/13 12:35 Serum or plasma sodium measurement (moles/volume) 138 mmol/L 135-145 Serum or plasma potassium measurement (moles/volume) 3.6 mmol/L 3.6-5.0 Serum or plasma chloride measurement (moles/volume) 107 mmol/L 98-107 Carbon dioxide 21 mmol/L 21-32 Serum or plasma anion gap determination (moles/volume) 10 mmol/L 5-14 Serum or plasma urea nitrogen measurement (mass/volume ) 11 mg/dL 7-18 Serum or plasma creatinine measurement (mass/volume) 0.73 mg/dL 0.60-1.30 Serum or plasma urea nitrogen/creatinine mass ratio 15 NRG Serum or plasma creatinine measurement w ith calculation of estimated glomerular filtration rate > NRG Serum or plasma glucose measurement (mass/volume) 90 mg/dL 70-105 Serum or plasma calcium measurement (mass/volume) 9.4 mg/dL 8.5-10.1 Blood type T Indirect antibody screen pa roque - 05/06/18 12:35 ABO+Rh group AN NRG Transfusion band number [id number] NRG Blood group antibody screen NEGATIVE NR G Methicillin resistant Staphylococcus aur eus (MRSA) screening culture - 05/06/18 12:35 Methicillin resistant Staphylococcus aureus (MRSA) scr eening culture NEG NRG Whole blood basic metabolic panel - 04/29 04:35 Serum or plasma sodium measurement (moles/volume) 138 mmol/L 135-145 Serum or plasma potassium measurement (moles/volume) 3.6 mmol/L 3.6-5.0 Serum or plasma chloride measurement (moles/volume) 110 mmol/L 98-107 Carbon dioxide 19 mmol/L 21-32 Serum or plasma anion gap determination (moles/volume) 9 mmol/L 5-14 Serum or plasma urea nitrogen measurement (mass/volume ) 7 mg/dL 7-18 Serum or plasma creatinine measurement (mass/volume) 0.71 mg/dL 0.60-1.30 Serum or plasma urea nitrogen/creatinine mass ratio 10 NRG Serum or plasma creatinine measurement w ith calculation of estimated glomerular filtration rate > NRG Serum or plasma glucose measurement (mass/volume) 124 mg/dL 70-105 Serum or plasma calcium measurement (mass/volume) 8.9 mg/dL 8.5-10.1 [facility] - 10/12/18 16:18 GLUCOSE 92 mg/dL 65-99 UREA NITROGEN (BUN) 12 mg/dL 7-25 CREATININE 0.68 mg/dL 0.50-1.10 eGFR NON-AFR. [place] 108 mL/min/1.73m2 > OR = 60 eGFR 125 mL/min/1.73m2 > OR = 60 BUN/CREATININE RATIO NOT APPLICABLE (calc) 6-22 SODIUM 137 mmol/L 135-146 POTASSIUM 4.2 mmol/L 3.5-5.3 CHLORIDE 109 mmol/L 98-110 CARBON DIOXIDE 22 mmol/L 20-32 CALCIUM 8.9 mg/dL 8.6-10.2 PROTEIN, TOTAL 6.9 g/dL 6.1-8.1 ALBUMIN 4.3 g/dL 3.6-5.1 GLOBULIN 2.6 g/dL (calc) 1.9-3.7 ALBUMIN/GLOBULIN RATIO 1.7 (calc) 1.0-2. 5 BILIRUBIN, TOTAL 0.4 mg/dL 0.2-1.2 ALKALINE PHOSPHATASE 89 U/L 33-115 AST 18 U/L 10-30 ALT 22 U/L 6- TSH w/ FREE T4 - 01/17/19 15:07 TSH 1.57 mIU/L NRG T4, FREE 0.9 ng/dL 0.8-1.8 ANEMIA PANEL - 01/17/19 15:07 IRON, TOTAL 21 mcg/dL 40-190 FERRITIN 6 ng/mL 16-232 IRON BINDING CAPACITY 473 mcg/dL (calc) 250-450 % SATURATION 4 % (calc) 16-45 CMP - 01/17/19 15:07 GLUCOSE 96 mg/dL 65-139 UREA NITROGEN (BUN) 14 mg/dL 7-25 CREATININE 0.67 mg/dL 0.50-1.10 eGFR NON-AFR. P[place] 108 mL/min/1.73m2 > OR = 60 eGFR 125 mL/min/1.73m2 > OR = 60 BUN/CREATININE RATIO NOT APPLICABLE (calc) 6-22 SODIUM 137 mmol/L 135-146 POTASSIUM 3.9 mmol/L 3.5-5.3 CHLORIDE 105 mmol/L 98-110 CARBON DIOXIDE 23 mmol/L 20-32 CALCIUM 9.2 mg/dL 8.6-10.2 PROTEIN, TOTAL 7.1 g/dL 6.1-8.1 ALBUMIN 4.4 g/dL 3.6-5.1 GLOBULIN 2.7 g/dL (calc) 1.9-3.7 ALBUMIN/GLOBULIN RATIO 1.6 (calc) 1.0-2. 5 BILIRUBIN, TOTAL 0.5 mg/dL 0.2-1.2 ALKALINE PHOSPHATASE 81 U/L 33-115 AST 22 U/L 10-30 ALT 21 U/L 6- CBC - 01/17/19 15:07 WHITE BLOOD CELL COUNT 8.3 Thousand/uL 3 .8-10.8 RED BLOOD CELL COUNT 3.54 Million/uL 3.8 0-5.10 HEMOGLOBIN 7.8 g/dL 11.7-15.5 HEMATOCRIT 26.5 % 35.0-45.0 MCV 74.9 fL 80.0-100.0 MCH 22.0 pg 27.0-33.0 MCHC 29.4 g/dL 32.0-36.0 RDW 15.8 % 11.0-15.0 PLATELET COUNT 262 Thousand/uL 140-400 MPV 11.5 fL 7.5-12.5 ABSOLUTE NEUTROPHILS 5777 cells/uL 1500- 7800 ABSOLUTE LYMPHOCYTES 1843 cells/uL 850-3 900 ABSOLUTE MONOCYTES 639 cells/uL 200-950 ABSOLUTE EOSINOPHILS 33 cells/uL 15-500 ABSOLUTE BASOPHILS 8 cells/uL 0-200 NEUTROPHILS 69.6 % NRG LYMPHOCYTES 22.2 % NRG MONOCYTES 7.7 % NRG EOSINOPHILS 0.4 % NRG BASOPHILS 0.1 % NRG ANEMIA PANEL - 02/09/19 15:17 IRON, TOTAL 33 mcg/dL 40-190 FERRITIN 33 ng/mL 16-232 IRON BINDING CAPACITY 348 mcg/dL (calc) 250-450 % SATURATION 9 % (calc) 16-45 CBC w/MANUAL DIFF - 02/09/19 15:17 WHITE BLOOD CELL COUNT 8.2 Thousand/uL 3 .8-10.8 RED BLOOD CELL COUNT 3.91 Million/uL 3.8 0-5.10 HEMOGLOBIN 10.3 g/dL 11.7-15.5 HEMATOCRIT 33.0 % 35.0-45.0 MCV 84.4 fL 80.0-100.0 MCH 26.3 pg 27.0-33.0 MCHC 31.2 g/dL 32.0-36.0 RDW 23.4 % 11.0-15.0 PLATELET COUNT 210 Thousand/uL 140-400 MPV 11.4 fL 7.5-12.5 ABSOLUTE NEUTROPHILS 6831 cells/uL 1500- 7800 ABSOLUTE MONOCYTES 402 cells/uL 200-950 ABSOLUTE EOSINOPHILS 82 cells/uL 15-500 ABSOLUTE BASOPHILS 0 cells/uL 0-200 NEUTROPHILS 83.3 % NRG LYMPHOCYTES 10.8 % NRG MONOCYTES 4.9 % NRG EOSINOPHILS 1.0 % NRG BASOPHILS 0 % NRG ABSOLUTE LYMPHOCYTES 886 cells/uL 850-39 00 PLATELET ESTIMATION ADEQUATE ADEQUATE CBC MORPHOLOGY NORMAL COMMENT(S) NRG Encounters ACCT No. Visit Date/Time Discharge Status Pt. Type Provider Facility Loc./Unit Complaint [id number] 04/25/2019 17:40:00 04/25/2019 23:59:5 9 CLS Outpatient SELF, [facility] [id number] 02/09/2019 13:45:00 Document Registration [id number] 01/17/2019 14:45:00 Document Registration [id number] 10/12/2018 15:20:00 Document Registration [id number] 04/01/2018 13:20:00 Document Registration [id number] 11/17/2017 12:20:00 Document Registration [id number] 11/11/2017 17:00:00 Document Registration [id number] 06/06/2019 07:52:00 11:05:00 DIS Outpatient TAMARA DO AN B [facility] ENDO MELENA [id number] 05/30/2019 05:44:00 11:07:00 DIS Outpatient TAMARA DOANAIC B [facility] PREOP COLONOSCOPY [id number] 05/07/2018 05:52:00 14:05:00 DIS Inpatient MATILDE AVALOS MD [facility] 4TH CECAL MASS [id number] 05/06/2018 05:37:00 12:45:00 DIS Outpatient MATILDE AVALOS MD [facility] PREOP CECAL MASS [id number] 04/28/2018 15:48:00 14:36:00 DIS Outpatient KASHMIR HUMPHRIES DO [facility] SDC RECTAL BLEEDING [id number] 04/28/2018 15:30:00 15:30:00 CAN Preadmit ANGI FOSTER, DAYANNA [place] [facility] ER RECTAL BLEEDING [id number] 01/16/2014 14:59:00 01/16/2014 23:59: 59 CLS Outpatient SINGER FOSTER, YAMILETH [place] [id number] 05/04/2013 15:06:00 05/04/2013 23:59: 59 CLS Outpatient LUCAS VARELA DDS
== END 2019-06-06 11:05 | disposition home or self-care (01) ==
LOC: ENDO 07:52
PROVIDERS: ATTEND Surgery
DX: K63.5 Polyp of colon (principal); K29.50 Unspecified chronic gastritis without bleeding; K21.0 Gastro-esophageal reflux disease with esophagitis; H44.9 Unspecified disorder of globe; K64.8 Other hemorrhoids; D64.9 Anemia, unspecified; I10 Essential (primary) hypertension; E66.9 Obesity, unspecified; F41.9 Anxiety disorder, unspecified; F32.9 Major depressive disorder, single episode, unspecified; Z90.49 Acquired absence of other specified parts of digestive tract; Z98.0 Intestinal bypass and anastomosis status; Z68.31 Body mass index [BMI] 31.0-31.9, adult; Z90.89 Acquired absence of other organs; Z90.710 Acquired absence of both cervix and uterus; Z88.1 Allergy status to other antibiotic agents; Z91.040 Latex allergy status; Z80.0 Family history of malignant neoplasm of digestive organs; Z82.49 Family history of ischemic heart disease and other diseases of the circulatory system
CPT/HCPCS: 88305; 88342

== ENCOUNTER 2019-07-19 11:20 | Outpatient (RCR) | payer OTHER ==
[~2019-07-19 11:20] MED LIST changes: +ESOM20CA58 PO; +SUCR1TAB36 PO
[2019-08-31] MEDS ORDERED: ACHYD1T PO (10:56)
== END 2019-10-17 | disposition home or self-care (01) ==
LOC: LAB 11:20
PROVIDERS: ATTEND Surgery
DX: Z09 Encounter for follow-up examination after completed treatment for conditions other than malignant neoplasm (principal); B96.81 Helicobacter pylori [H. pylori] as the cause of diseases classified elsewhere

== ENCOUNTER → 2019-07-21 | Outpatient (CLI) | payer OTHER ==
--- NOTE | 2019-07-21 09:57 | Diagnostic Imaging Report ---
PROCEDURE: US Gallbladder. TECHNIQUE: Multiple real-time grayscale images were obtained over the right upper quadrant in various projections. INDICATION: Epigastric pain. FINDINGS: The gallbladder appeared normal. Liver parenchyma is mildly elevated in echotexture raising the question of mild fatty infiltration. In addition, there are some scattered small cystic-appearing hepatic nodules with no vascularized or solid/suspect liver mass. The bile ducts are nondilated. The partially visualized pancreas is unremarkable, where seen. The unobstructed right kidney is normal in size, cortical thickness, and echotexture. IMPRESSION: 1. Normal gallbladder. Probable mild hepatic steatosis and few scattered hepatic cysts. 2. No acute-appearing abnormality. Dictated by: Dictated on workstation # [id number]
== END ==
LOC: RAD 08:22
PROVIDERS: ATTEND Surgery
DX: K76.89 Other specified diseases of liver (principal); R10.13 Epigastric pain
CPT/HCPCS: 76705

== ENCOUNTER → 2019-08-04 | Outpatient (CLI) | payer OTHER ==
[~2019-08-04] MED LIST changes: +CATHETER FLUSH 10 ML SYR IV PRN
--- NOTE | 2019-08-04 12:47 | Diagnostic Imaging Report ---
INDICATION: Epigastric pain. Patient was administered 5.0 mCi technetium 99m Choletec intravenously and imaging over the abdomen was performed. After 60 minutes, the patient ingested one can of Ensure and a gallbladder ejection fraction was calculated. There is homogeneous uptake of activity by the liver. There is prompt excretion of activity into the gallbladder and common duct. Normal passage of activity into the small bowel is seen. Gallbladder ejection fraction is abnormally low at 6%. Normal values are 33% or greater. IMPRESSION: 1. Patent cystic duct and common bile duct. 2. Low gallbladder ejection fraction of 6%. Dictated by: Dictated on workstation # [id number]
== END ==
LOC: CARD 09:55
PROVIDERS: ATTEND Surgery
DX: R10.13 Epigastric pain (principal)
CPT/HCPCS: 78227

== ENCOUNTER 2019-08-25 05:40 | Outpatient (CLI) | payer OTHER ==
[~2019-08-25] VITALS: Ht 172 cm; Wt 95.0 kg
[~2019-08-25 05:40] MED LIST changes: -CATHETER FLUSH 10 ML SYR IV PRN
== END 2019-08-25 14:35 | disposition home or self-care (01) ==
LOC: PREOP 05:40
PROVIDERS: ATTEND Surgery
DX: Z01.818 Encounter for other preprocedural examination (principal)

== ENCOUNTER → 2019-11-22 | Outpatient (CLI) | payer OTHER ==
[~2019-11-22] MED LIST changes: +ACHYD1T PO; +SMTR50T PO
--- NOTE | 2019-11-22 17:23 | Diagnostic Imaging Report ---
PROCEDURE: MR imaging of the brain without contrast. TECHNIQUE: Multiplanar, multisequence MR imaging of the brain was performed without contrast. INDICATION: Sharp head pain. COMPARISON: No prior studies are available for comparison. FINDINGS: Ventricles and sulci are within normal limits. The normal expected flow-voids within the carotid siphons are seen. No diffusion restriction is identified to suggest acute ischemia. No acute intra-axial or extra-axial hemorrhage is detected. Corpus callosum is unremarkable. The sella and parasellar structures are unremarkable. IMPRESSION: Unremarkable noncontrast MRI of the brain. Dictated by: Dictated on workstation # [id number]
== END ==
LOC: RAD 15:05
PROVIDERS: ATTEND Nurse Practitioner Family
DX: R51 Headache (principal); D36.10 Benign neoplasm of peripheral nerves and autonomic nervous system, unspecified; Z82.79 Family history of other congenital malformations, deformations and chromosomal abnormalities
CPT/HCPCS: 70551

== ENCOUNTER 2019-11-23 21:39 | Emergency (ER) | payer SELFPAY ==
[~2019-11-23] VITALS: Ht 172.7 cm; Wt 96.4 kg
[~2019-11-23 21:39] MED LIST changes: -SMTR50T PO
--- NOTE | 2019-11-23 21:42 | ED Headache ---
General Chief Complaint: Head/Cervical Problems Stated Complaint: HEADACHES History of Present Illness Date Seen by Provider: November 23, 2019 Time Seen by Provider: 21:42 Initial Comments Patient is a 44-year-old female who comes to the emergency department today complaining of generalized bitemporal headache. She has had this headache since 2:00 this afternoon and states that it started after she had a bowel movement although she does not endorse bearing-down or any constipation symptoms. She has been having similar headaches almost daily over the last 2 weeks. Headaches can last anywhere from a few minutes to a few hours. She has not found any medications to relieve her symptoms but she has been taking txiv-fuv-yqnhupg ibuprofen and Tylenol. She has not been ill or had fevers. She does not have rash, vision changes, neck stiffness. She states she sometimes has photophobia. No nausea or vomiting. She does have prior history remotely of similar headaches that lasted about 2 weeks and resolved spontaneously. At that time, she remembers her physician thought the symptoms to be secondary to high blood pressure. The patient has been evaluated by her physician for these headaches and did have MRI of the brain completed yesterday. Review of EMR reveals study to have been negative for any acute findings. She has no focal neurologic complaints. Allergies and Home Medications Allergies Coded Allergies: cephalexin (Verified Allergy, Intermediate, rash, 08/25/19) latex (Unverified Allergy, Intermediate, HIVES AND SWELLING, 08/25/19) Home Medications Bupropion HCl Unknown Strength Tablet.er, Unknown Dose PO DAILY, (Reported) Ferrous Sulfate 325 Mg Tablet, 325 MG PO DAILY, (Reported) Hydrochlorothiazide 12.5 Mg Tablet, 12.5 MG PO DAILY, (Reported) Hydrocodone Bit/Acetaminophen 1 Ea Tab, 1 TAB PO Q6H Prescribed by: AN MCDONALD on 08/31/19 1056 Losartan Potassium 50 Mg Tablet, 50 MG PO DAILY, (Reported) Omeprazole 40 Mg Capsule.dr, 40 MG PO DAILY, (Reported) Sumatriptan Succinate 50 Mg Tab, 50 MG PO UD Take one tablet at onset of headache, repeat in two hours if no improvement. Do not take more than two tabs per 24 hours. Prescribed by: TIERA HEBERT on 11/23/19 2222 Patient Home Medication List Home Medication List Reviewed: Yes Review of Systems Review of Systems Constitutional: no symptoms reported Eyes: No Symptoms Reported Ears, Nose, Mouth, Throat: no symptoms reported Respiratory: no symptoms reported Cardiovascular: no symptoms reported Gastrointestinal: no symptoms reported Musculoskeletal: no symptoms reported Skin: no symptoms reported Psychiatric/Neurological: See HPI All Other Systems Reviewed Negative Unless Noted: Yes Past Efqmdma-Mjxqqu-Efehbv Hx Patient Social History 2nd Hand Smoke Exposure: No Recent Foreign Travel: No Contact w/Someone Who Travel: No Recent Hopitalizations: No Seasonal Allergies Seasonal Allergies: Yes Past Medical History Surgeries: Yes (BOWEL RESECTION) Hysterectomy, Tonsillectomy, Tubal Ligation Respiratory: Yes Chronic Bronchitis Currently Using CPAP: No Currently Using BIPAP: No Cardiac: Yes Hypertension Neurological: Yes Headaches /Migraines Reproductive Disorders: Yes (HYPERMENORRHEA, METROMENORRHAGIA, ANEMIA) Female Reproductive Disorders: Denies [employer] History: Hysterectomy Sexually Transmitted Disease: No HIV/AIDS: No Genitourinary: No Gastrointestinal: Yes (cecal mass) Gastroesophageal Reflux, Chronic Constipation Musculoskeletal: Yes Chronic Back Pain Endocrine: No HEENT: Yes (GLASSES) Loss of Vision: Denies Hearing Impairment: Denies Cancer: No Psychosocial: Yes Anxiety, Depression Integumentary: No Blood Disorders: Yes (anemia) Adverse Reaction/Blood Tranf: No (N/A) Family Medical History NEROFIBROMATOUS 19 MOTHER Neoplasm 19 FATHER (INTESTINAL CA AND LUNG CA) Physical Exam Vital Signs Vital Signs - First Documented 11/23/19 21:48 Temp 36.3 Pulse 80 Resp 18 B/P (MAP) 152/88 (109) Pulse Ox 99 O2 Delivery Room Air Capillary Refill : Height, Weight, BMI Height: 5'8.00" Weight: 207lbs. 0.0oz. 93.302023os; 31.85 BMI Method: General Appearance: WD/WN, no apparent distress HEENT: TMs normal Cardiovascular: regular rate, rhythm Respiratory: chest non-tender, lungs clear Extremities: normal range of motion Psychiatric: alert, oriented x 3 Crainal Nerves: normal hearing, normal speech, PERRL Coordination/Gait: normal finger to nose, normal gait Motor/Sensory: no motor deficit, no sensory deficit, no pronator drift Skin: normal color, warm/dry Progress/Results/Core Measures Results/Orders My Orders Orders - TIERA HEBERT DO Ketorolac Injection (Toradol Injection) (11/23/19 22:00) Prochlorperazine Injection (Compazine In (11/23/19 22:00) Diphenhydramine Injection (Benadryl Inje (11/23/19 22:00) Ed Iv/Invasive Line Start (11/23/19 21:52) Medications Given in ED Current Medications Medications Dose Ordered Sig/[place] Route Start Time Stop Time Status Last Admin Dose Admin Diphenhydramine HCl 12.5 mg ONCE ONCE IVP 11/23/19 22:00 11/23/19 22:01 DC 11/23/19 22:09 12.5 MG Ketorolac Tromethamine 30 mg ONCE ONCE IVP 11/23/19 22:00 11/23/19 22:01 DC 11/23/19 22:08 30 MG Prochlorperazine Edisylate 5 mg ONCE ONCE IV 11/23/19 22:00 11/23/19 22:01 DC 11/23/19 22:08 5 MG Vital Signs/I&O 11/23/19 21:48 Temp 36.3 Pulse 80 Resp 18 B/P (MAP) 152/88 (109) Pulse Ox 99 O2 Delivery Room Air Progress Progress Note : Time: 22:00 Progress Note Patient is evaluated immediately on arrival to her room. She is in no acute distress. She has bitemporal headache that is also described to be bandlike. MRI results are revealed from yesterday and are negative. She did receive a dose of Toradol from her physician last week and states that the medicine work to relieve her symptoms at least temporarily. This evening, we will give Toradol, Compazine, Benadryl and reevaluate. 22:25: Patient is currently feeling much improved and headache is relieved. Plan is for discharge home. I recommended she follow up with her primary care physician for ongoing management of her headaches. I also recommended she take Excedrin as her first line agent to treat her migraines. If this did not work, she was provided a prescription for Imitrex as a trial to see if this helped her symptoms. Patient is agreeable to this plan of care and all of her questions were answered prior to discharge home. Departure Impression Primary Impression: Migraine Disposition: 01 HOME, SELF-CARE Condition: Improved Departure-Patient Inst. Referrals: [facility] (PCP/Family) Primary Care Physician Scripts Sumatriptan Succinate (Imitrex) 50 Mg Tab 50 MG PO UD for Headache, #9 TAB 1 Refill Take one tablet at onset of headache, repeat in two hours if no improvement. Do not take more than two tabs per 24 hours. Prov: TIERA HEBERT DO 11/23/19 TIERA HEBERT DO November 23, 2019 21:42
[2019-11-23 21:48] VITALS: BP 152/88
[2019-11-23] MEDS ORDERED: PROCHLORPERAZINE 10 MG/2ML INJ (COMPAZINE) IV ONE (22:00)
[2019-11-23] MEDS ORDERED: diphenhydrAMINE 50 MG/ML INJ (BENADRYL) IVP ONE (22:00)
[2019-11-23] MEDS ORDERED: KETOROLAC 30 MG/ML VIAL IVP ONE (22:00)
[2019-11-23] MEDS ORDERED: SMTR50T PO (22:22)
--- OUTSIDE RECORDS SUMMARY | 2019-11-23 23:58 | XMS REPORT ---
Author Author Glendy [facility] [employer] [facility] Address [address] [place] [address] Care Team Providers Care Neurology Manager Name Role Phone VICENTE El Unavailable PROBLEMS Type Condition ICD9-CM Code MWA21-UD Code Onset Dates Condition S tatus SNOMED Code Problem GERD without esophagitis K21.9 Activ e 122616648 Problem Moderate episode of recurrent major depressive disorder F33.1 Active 608465744 Problem Essential hypertension I10 Active 51836578 Problem Dysthymia F34.1 Active 80251366 Problem Primary insomnia F51.01 Active 397 2004 ALLERGIES No Information ENCOUNTERS Encounter Location Date Diagnosis [address] [id number] [address] 08 Sep, [address] [id number], [place] [address] 03 Sep, 2019 Left arm pain M79.602 and Es sential hypertension I10 [facility] [address] [facility] [id number] [address] [place] [address] Jul, [facility] [address] [id number], [place] [address] Jul, Bleeding nevus D22.9 [facility] [address] [facility] [id number] [address] [place] [address] Jul, Mass of left upper extremity R22.32 [facility] [address] [facility] [id number] [address] [place] [address] Jun, Enlarged lymph node R59.9 [facility] [address] [facility] [id number] [address] [place] [address] Jun, Enlarged lymph node R59.9 [place] [address] [facility] [id number] [address] [place] [address] May, Left upper arm pain M79.622 [facility] [address] [facility] [id number] [address] [place] [address] Apr, Tarry stool K92.1 [facility] [address] [facility] [id number] [address] [place] [address] Mar, Pneumonia of left upper lobe due to infectious organism J18.1 [facility] [address] [facility] [id number] [address] [place] [address] Mar, [facility] [address] [facility] [id number] [address] [place] [address] Mar, Pneumonia of right upper lob e due to infectious organism J18.1 ; Cough R05 ; Essential hypertension I10 and GERD without esophagitis K21.9 [facility] [address] [facility] [id number] [address] [place] [address] Mar, Bronchitis J40 [facility] [address] [facility] [id number] [address] [place] [address] Feb, Acute non-recurrent frontal sinusitis J01.[address] [id number], [place] [address] Jan, Anemia D64.[address] [id number], [place] [address] Jan, Anemia D64.[address] [id number], [place] [address] Jan, Moderate episode of recurren t major depressive disorder F33.1 ; Essential hypertension I10 and Normal breast exam Z00.[address] [id number], [place] [address] Dec, Anemia D64.[address] [id number], [place] [address] Dec, Anemia D64.9 [facility] [address] [facility] [address] [id number], [place] [address] Dec, Moderate episode of recurren t major depressive disorder F33.1 ; Screening mammogram, encounter for Z12.31 and Fatigue, unspecified type R53.83 [facility] [address] [facility] [address] [id number], [place] [address] Dec, [place] [address] [facility] [id number] [address] [place] [address] October, Essential hypertension I10 ; Dysthymia F34.1 and GERD without esophagitis K21.9 [place] [address] [facility] [id number] [address] [place] [address] Sep, [place] [address] [facility] [id number] [address] [place] [address] Sep, Essential hypertension I10 ; Dysthymia F34.1 and Plantar fasciitis, bilateral M72.2 [facility] [address] [facility] [id number] [address] [place] [address] Aug, [facility] [address] [facility] [id number] [address] [place] [address] Apr, Essential hypertension I10 ; Skin infection L08.9 and History of right hemicolectomy Z90.49 [facility] [address] [facility] [id number] [address] [place] [address] Apr, [facility] [address] [facility] [id number] [address] [place] [address] Apr, [facility] [address] [facility] [id number] [address] [place] [address] Mar, [facility] [address] [facility] [id number] [address] [place] [address] Mar, Rectal bleeding K62.5 [place] [address] [facility] [id number] [address] [place] [address] Mar, Dysuria R30.0 ; Screening fo r STD (sexually transmitted disease) Z11.3 and Vaginal candidiasis B37.3 [place] [address] [facility] [id number] [address] [place] [address] 05 Feb, 2018 Essential hypertension I10 a nd Dysthymia F34.1 [facility] [address] [facility] [id number] [address] [place] [address] Jan, Essential hypertension I10 ; Dysthymia F34.1 and Subacromial impingement of left shoulder M75.42 [place] [address] [facility] [id number] [address] [place] [address] Dec, Subacromial impingement of l eft shoulder M75.42 and Spasm of muscle, back M62.830 [place] [address] [place] [id number] [address] [place] [address] Dec, Essential hypertension I10 [place] [address] [place] [id number] [address] [place] [address] Dec, Essential hypertension I10 ; Dysthymia F34.1 ; Primary insomnia F51.01 and Seasonal allergic rhinitis, unspecified trigger J30.2 [place] [address] [place] [id number] [address] [place] [address] Nov, Essential hypertension I10 a nd Dysthymia F34.1 [facility] [address] [place] [id number] [address] [place] [address] October, [place] [address] [place] [id number] [address] [place] [address] October, Essential hypertension I10 [place] [address] [facility] [id number] [address] [place] [address] October, Essential hypertension I10 [place] [address] [place] [id number] [address] [place] [phone] Sep, [facility] [address] [place] [id number] [address] [place] [address] Sep, [facility] [address] [place] [facility] [place] [address] Dec, 14 [facility] [address] [id number] [address] [place] [address], [place] [address] Dec, [facility] [address] [id number] [address] [place] [address], [place] [address] Mar, [facility] [place] [address] [place] [facility] [place] [address] Mar, 13 [facility] [address] [id number] [address] [place] [address], [place] [address] 28 Mar, 2013 [facility] [address] [id number] [address] [place] [address], [place] [address] Nov, [facility] [address] [id number] [address] [place] [address], [place] [address] Nov, [facility] [address] [id number] [address] [place] [phone] Sep, [facility] [address] [id number] [address] [place] [address], [place] [address] Apr, [facility] [address] [id number] [address] [place] [address], [place] [address] Apr, [facility] [address] [id number] [address] [place] [address], [place] [address] Apr, [facility] [address] [id number] [address] [place] [address], [place] [address] Jun, [facility] [address] [id number] [address] [place] [address] May, [facility] [address] [id number] [address] [place] [phone] May, [facility] [address] [id number] [address] [place] [address], [place] [address] Mar, [facility] [address] [id number] [address] [place] [phone] Mar, [facility] [address] [facility] [id number] [address] [place] [address] Mar, IMMUNIZATIONS No Known Immunizations SOCIAL HISTORY Never Assessed REASON FOR VISIT PLAN OF CARE VITAL SIGNS MEDICATIONS Unknown Medications RESULTS No Results PROCEDURES No Known procedures INSTRUCTIONS MEDICATIONS ADMINISTERED No Known Medications MEDICAL (GENERAL) HISTORY Type Description Date Medical History Essential hypertension Medical History Dysthymia Medical History Primary insomnia Medical History GERD without esophagitis Medical History Moderate episode of recurrent major depr essive disorder Medical History egd and colonoscopy Surgical History tubal ligation 2003 Surgical History partial hyst 2006 Surgical History tonsillectomy (child) Surgical History foot surgery 2014 Surgical History colon 2018 Surgical History egd and colonoscopy 05/2019 Surgical History bowel resection Surgical History lap vince 08/31/2019 Hospitalization History surgery related Hospitalization History Issues with her colon 2018
--- OUTSIDE RECORDS SUMMARY | 2019-11-23 23:59 | XMS REPORT | Continuity of Care Document ---
Author Organization Unknown Address Unknown Phone Unavailable Allergies Active Description Code Type Severity Reaction Onset Reported/Identified Relationship to Patient Clinical Status Yes Keflex Drug Allergy N/A N/A 04/20/2009 Yes lisinopril Drug Allergy N/A N/A 11/09/2010 Yes cephalexin [id number] Drug Allerg y Moderate rash 08/25/2019 Yes latex [id number] Drug Allergy Moderate HIVES AND SWELL 08/25/2019 Medications There is no data. Problems Date Dx Coded Attending Type Code Diagnosis Diagnosed By 04/20/2009 LUCAS VARELA DDS 296 .90 EPISODIC MOOD DISORDERS 04/20/2009 LUCAS VARELA DDS 626 .4 irregular length of menstrual [...] OTHER PREPROCEDURAL EXAMIN 05/31/2019 AN MCDONALD DO Ot Z01.8 18 ENCOUNTER FOR OTHER PREPROCEDURAL EXAMIN 06/06/2019 ANNPETR ANA DEL ANGELIC B Ot D64.9 ANEMIA, UNSPECIFIED 06/06/2019 ANNPETR ANA DEL ANGELIC B Ot E66.9 OBESITY, UNSPECIFIED 06/06/2019 AN MCDONALD DO B Ot F32.9 MAJOR DEPRESSIVE DISORDER, SINGLE EPISOD 06/06/2019 ANNPETR ANA DEL ANGELIC B Ot F41.9 ANXIETY DISORDER, UNSPECIFIED 06/06/2019 ANNPETR ANA DEL ANGELIC B Ot H44.9 UNSPECIFIED DISORDER OF GLOBE 06/06/2019 AN MCDONALD DO B Ot I10 ESSENTIAL (PRIMARY) HYPERTENSION 06/06/2019 ANA MCDONALD DOIC B Ot K21.0 GASTRO-ESOPHAGEAL REFLUX DISEASE WITH ES 06/06/2019 AN MCDONALD DO B Ot K29.5 0 UNSPECIFIED CHRONIC GASTRITIS WITHOUT BL 06/06/2019 ANA MCDONALD DOIC B Ot K63.5 POLYP OF COLON 06/06/2019 ANA MCDONALD DOIC B Ot K64.8 OTHER HEMORRHOIDS 06/06/2019 AN MCDONALD DO Ot Z68.3 1 BODY MASS INDEX (BMI) 31.0-31.9, ADULT 06/06/2019 AN MCDONALD DO B Ot Z80.0 FAMILY HISTORY OF MALIGNANT NEOPLASM OF 06/06/2019 AN MCDONALD DO B Ot Z82.4 9 FAMILY HX OF ISCHEM HEART DIS AND OTH DI 06/06/2019 AN MCDONALD DO B Ot Z88.1 ALLERGY STATUS TO OTHER ANTIBIOTIC AGENT 06/06/2019 ANA MCDONALD DOIC B Ot Z90.4 9 ACQUIRED ABSENCE OF OTHER SPECIFIED PART 06/06/2019 AN MCDONALD DO Ot Z90.7 10 ACQUIRED ABSENCE OF BOTH CERVIX AND UTER 06/06/2019 AN MCDONALD DO B Ot Z90.8 9 ACQUIRED ABSENCE OF OTHER ORGANS 06/06/2019 AN MCDONALD DO B Ot Z91.0 40 LATEX ALLERGY STATUS 06/06/2019 AN MCDONALD DO Ot Z98.0 INTESTINAL BYPASS AND ANASTOMOSIS STATUS 06/16/2019 ANA MCDONALD DOIC B Ot D64.9 ANEMIA, UNSPECIFIED 06/16/2019 TAMARA DEL ANGEL AN B Ot E66.9 OBESITY, UNSPECIFIED 06/16/2019 TAMARA DEL ANGELANAIC B Ot F32.9 MAJOR DEPRESSIVE DISORDER, SINGLE EPISOD 06/16/2019 TAMARA DEL ANGEL AN B Ot F41.9 ANXIETY DISORDER, UNSPECIFIED 06/16/2019 TAMARA DEL ANGEL AN B Ot H44.9 UNSPECIFIED DISORDER OF GLOBE 06/16/2019 TAMARA DEL ANGELANAIC B Ot I10 ESSENTIAL (PRIMARY) HYPERTENSION 06/16/2019 TAMARA DEL ANGELANAIC B Ot K21.0 GASTRO-ESOPHAGEAL REFLUX DISEASE WITH ES 06/16/2019 TAMARA DEL ANGELANAIC B Ot K29.5 0 UNSPECIFIED CHRONIC GASTRITIS WITHOUT BL 06/16/2019 TAMARA ANA DEL ANGELIC B Ot K63.5 POLYP OF COLON 06/16/2019 TAMARA DEL ANGELANAIC B Ot K64.8 OTHER HEMORRHOIDS 06/16/2019 ANNPETR AN DEL ANGEL Ot Z68.3 1 BODY MASS INDEX (BMI) 31.0-31.9, ADULT 06/16/2019 TAMARA DEL ANGEL AN B Ot Z80.0 FAMILY HISTORY OF MALIGNANT NEOPLASM OF 06/16/2019 TAMARA DEL ANGELANAIC B Ot Z82.4 9 FAMILY HX OF ISCHEM HEART DIS AND OTH DI 06/16/2019 TAMARA ANA DEL ANGELIC B Ot Z88.1 ALLERGY STATUS TO OTHER ANTIBIOTIC AGENT 06/16/2019 TAMARA DEL ANGEL AN B Ot Z90.4 9 ACQUIRED ABSENCE OF OTHER SPECIFIED PART 06/16/2019 ANNPETR AN DEL ANGEL B Ot Z90.7 10 ACQUIRED ABSENCE OF BOTH CERVIX AND UTER 06/16/2019 ANNPETR DEL ANGELANAIC B Ot Z90.8 9 ACQUIRED ABSENCE OF OTHER ORGANS 06/16/2019 ANNPETR DEL ANGELANAIC B Ot Z91.0 40 LATEX ALLERGY STATUS 06/16/2019 ANNPETR DEL ANGELANAIC B Ot Z98.0 INTESTINAL BYPASS AND ANASTOMOSIS STATUS 06/18/2019 TAMARA ANA DEL ANGELIC B Ot D64.9 ANEMIA, UNSPECIFIED 06/18/2019 TAMARA DEL ANGEL AN B Ot E66.9 OBESITY, UNSPECIFIED 06/18/2019 ANNPETR DEL ANGELANAIC B Ot F32.9 MAJOR DEPRESSIVE DISORDER, SINGLE EPISOD 06/18/2019 ANNPETR AN DEL ANGEL Ot F41.9 ANXIETY DISORDER, UNSPECIFIED 06/18/2019 ANNPETR AN DEL ANGEL Ot H44.9 UNSPECIFIED DISORDER OF GLOBE 06/18/2019 AN MCDONALD DO Ot I10 ESSENTIAL (PRIMARY) HYPERTENSION 06/18/2019 AN MCDONALD DO Ot K21.0 GASTRO-ESOPHAGEAL REFLUX DISEASE WITH ES 06/18/2019 AN MCDONALD DO Ot K29.5 0 UNSPECIFIED CHRONIC GASTRITIS WITHOUT BL 06/18/2019 AN MCDONALD DO Ot K63.5 POLYP OF COLON 06/18/2019 AN MCDONALD DO Ot K64.8 OTHER HEMORRHOIDS 06/18/2019 AN MCDONALD DO Ot Z68.3 1 BODY MASS INDEX (BMI) 31.0-31.9, ADULT 06/18/2019 AN MCDONALD DO Ot Z80.0 FAMILY HISTORY OF MALIGNANT NEOPLASM OF 06/18/2019 AN MCDONALD DO Ot Z82.4 9 FAMILY HX OF ISCHEM HEART DIS AND OTH DI 06/18/2019 AN MCDONALD DO Ot Z88.1 ALLERGY STATUS TO OTHER ANTIBIOTIC AGENT 06/18/2019 AN MCDONALD DO Ot Z90.4 9 ACQUIRED ABSENCE OF OTHER SPECIFIED PART 06/18/2019 AN MCDONALD DO Ot Z90.7 10 ACQUIRED ABSENCE OF BOTH CERVIX AND UTER 06/18/2019 AN MCDONALD DO Ot Z90.8 9 ACQUIRED ABSENCE OF OTHER ORGANS 06/18/2019 AN MCDONALD DO Ot Z91.0 40 LATEX ALLERGY STATUS 06/18/2019 AN MCDONALD DO Ot Z98.0 INTESTINAL BYPASS AND ANASTOMOSIS STATUS 07/22/2019 AN MCDONALD DO Ot K76.8 9 OTHER SPECIFIED DISEASES OF LIVER 07/22/2019 AN MCDONALD DO Ot R10.1 3 EPIGASTRIC PAIN 07/26/2019 AN MCDONALD DO Ot B96.8 1 HELICOBACTER PYLORI THE CAUSE OF DISE 07/26/2019 AN MCDONALD DO Ot Z09 ENCNTR FOR F/U EXAM AFT TRTMT FOR COND O 07/27/2019 AN MCDONALD DO Ot K76.8 9 OTHER SPECIFIED DISEASES OF LIVER 07/27/2019 [facility] DO, AN B Ot R10.1 3 EPIGASTRIC PAIN 08/04/2019 [facility] DO, AN B Ot K76.8 9 OTHER SPECIFIED DISEASES OF LIVER 08/04/2019 [facility] DO, AN B Ot R10.1 3 EPIGASTRIC PAIN 08/04/2019 [facility] DO, AN B Ot B96.8 1 HELICOBACTER PYLORI THE CAUSE OF DISE 08/04/2019 [facility] DO, AN B Ot Z09 ENCNTR FOR F/U EXAM AFT TRTMT FOR COND O 08/05/2019 [facility] DO, AN B Ot R10.1 3 EPIGASTRIC PAIN 08/11/2019 [facility] DO, AN B Ot K76.8 9 OTHER SPECIFIED DISEASES OF LIVER 08/11/2019 [facility] DO, AN B Ot R10.1 3 EPIGASTRIC PAIN 08/11/2019 [facility] DO, AN B Ot R10.1 3 EPIGASTRIC PAIN 08/12/2019 [facility] DO, AN B Ot R10.1 3 EPIGASTRIC PAIN 08/15/2019 [facility] DO, AN B Ot K76.8 9 OTHER SPECIFIED DISEASES OF LIVER 08/15/2019 [facility] DO, AN B Ot R10.1 3 EPIGASTRIC PAIN 08/15/2019 [facility] DO, AN B Ot R10.1 3 EPIGASTRIC PAIN 08/15/2019 [facility] DO, AN B Ot B96.8 1 HELICOBACTER PYLORI THE CAUSE OF DISE 08/15/2019 [place] DO, AN B Ot Z09 ENCNTR FOR F/U EXAM AFT TRTMT FOR COND O 08/25/2019 [facility] DO, AN B Ot Z01.8 18 ENCOUNTER FOR OTHER PREPROCEDURAL EXAMIN 08/26/2019 [facility] DO, AN B Ot Z01.8 18 ENCOUNTER FOR OTHER PREPROCEDURAL EXAMIN 08/31/2019 [facility] DO, AN B Ot D64.9 ANEMIA, UNSPECIFIED 08/31/2019 [place] DO, AN B Ot E66.9 OBESITY, UNSPECIFIED 08/31/2019 [facility] DO, AN B Ot F32.9 MAJOR DEPRESSIVE DISORDER, SINGLE EPISOD 08/31/2019 [facility] DO, AN B Ot F41.9 ANXIETY DISORDER, UNSPECIFIED 08/31/2019 [facility] DO, AN B Ot G43.9 09 MIGRAINE, UNSP, NOT INTRACTABLE, WITHOUT 08/31/2019 [facility], AN B Ot I10 ESSENTIAL (PRIMARY) HYPERTENSION 08/31/2019 [facility] , AN B Ot J40 BRONCHITIS, NOT SPECIFIED ACUTE OR CH 08/31/2019 [facility] , AN B Ot K65.4 SCLEROSING MESENTERITIS 08/31/2019 [facility] , AN B Ot K81.1 CHRONIC CHOLECYSTITIS 08/31/2019 [facility] , AN B Ot K82.8 OTHER SPECIFIED DISEASES OF GALLBLADDER 08/31/2019 [facility] , AN B Ot Z68.3 2 BODY MASS INDEX (BMI) 32.0-32.9, ADULT 08/31/2019 [facility] , AN B Ot Z79.8 99 OTHER [facility] (CURRENT) DRUG THERAPY 08/31/2019 [facility] , AN B Ot Z80.0 FAMILY HISTORY OF MALIGNANT NEOPLASM OF 08/31/2019 [facility] AN B Ot Z88.1 ALLERGY STATUS TO OTHER ANTIBIOTIC AGENT 08/31/2019 [facility], AN B Ot Z90.7 10 ACQUIRED ABSENCE OF BOTH CERVIX AND UTER 08/31/2019 [facility] , AN B Ot Z91.0 40 LATEX ALLERGY STATUS 09/05/2019 [facility], AN B Ot D64.9 ANEMIA, UNSPECIFIED 09/05/2019 [facility] , AN B Ot E66.9 OBESITY, UNSPECIFIED 09/05/2019 [facility] , AN B Ot F32.9 MAJOR DEPRESSIVE DISORDER, SINGLE EPISOD 09/05/2019 [facility] , AN B Ot F41.9 ANXIETY DISORDER, UNSPECIFIED 09/05/2019 [facility] , AN B Ot G43.9 09 MIGRAINE, UNSP, NOT INTRACTABLE, WITHOUT 09/05/2019 [facility] , AN B Ot I10 ESSENTIAL (PRIMARY) HYPERTENSION 09/05/2019 [facility] , AN B Ot J40 BRONCHITIS, NOT SPECIFIED ACUTE OR CH 09/05/2019 [facility] , AN B Ot K65.4 SCLEROSING MESENTERITIS 09/05/2019 [facility] , AN B Ot K81.1 CHRONIC CHOLECYSTITIS 09/05/2019 [facility] , AN B Ot K82.8 OTHER SPECIFIED DISEASES OF GALLBLADDER 09/05/2019 TAMARA DEL ANGEL, AN B Ot Z68.3 2 BODY MASS INDEX (BMI) 32.0-32.9, ADULT 09/05/2019 TAMARA DEL ANGEL, AN B Ot Z79.8 99 OTHER [facility] (CURRENT) DRUG THERAPY 09/05/2019 [facility] , AN B Ot Z80.0 FAMILY HISTORY OF MALIGNANT NEOPLASM OF 09/05/2019 TAMARA DEL ANGEL, AN B Ot Z88.1 ALLERGY STATUS TO OTHER ANTIBIOTIC AGENT 09/05/2019 [facility] , AN B Ot Z90.7 10 ACQUIRED ABSENCE OF BOTH CERVIX AND UTER 09/05/2019 [facility] , AN B Ot Z91.0 40 LATEX ALLERGY STATUS 09/07/2019 [facility] , AN B Ot D64.9 ANEMIA, UNSPECIFIED 09/07/2019 [facility] , AN B Ot E66.9 OBESITY, UNSPECIFIED 09/07/2019 [facility] , AN B Ot F32.9 MAJOR DEPRESSIVE DISORDER, SINGLE EPISOD [facility]/07/[facility] F41.9 ANXIETY DISORDER, UNSPECIFIED 09/07/2019 [facility], AN B Ot G43.9 09 MIGRAINE, UNSP, NOT INTRACTABLE, WITHOUT 09/07/2019 TAMARA DEL ANGEL, AN B Ot I10 ESSENTIAL (PRIMARY) HYPERTENSION 09/07/2019 [facility] , AN B Ot J40 BRONCHITIS, NOT SPECIFIED ACUTE OR CH 09/07/2019 [facility] , AN B Ot K65.4 SCLEROSING MESENTERITIS 09/07/2019 TAM[facility] DEL ANGEL, AN B Ot K81.1 CHRONIC CHOLECYSTITIS 09/07/2019 [place] , AN B Ot K82.8 OTHER SPECIFIED DISEASES OF GALLBLADDER 09/07/2019 [facility] Ot Z68.3 2 BODY MASS INDEX (BMI) 32.0-32.9, ADULT 09/07/2019 [facility] , AN B Ot Z79.8 99 OTHER [facility] (CURRENT) DRUG THERAPY 09/07/2019 [place] , AN B Ot Z80.0 FAMILY HISTORY OF MALIGNANT NEOPLASM OF 09/07/2019 TAM[facility] DEL ANGEL, AN B Ot Z88.1 ALLERGY STATUS TO OTHER ANTIBIOTIC AGENT 09/07/2019 [place] , AN B Ot Z90.7 10 ACQUIRED ABSENCE OF BOTH CERVIX AND UTER 09/07/2019 TAM[facility] DEL ANGEL, AN B Ot Z91.0 40 LATEX ALLERGY STATUS 10/17/2019 TAMARA DEL ANGEL, AN B Ot B96.8 1 HELICOBACTER PYLORI THE CAUSE OF DISE 10/17/2019 ANNPETR DEL ANGEL AN B Ot Z09 ENCNTR FOR F/U EXAM AFT TRTMT FOR COND O 11/14/2019 TAMARA DEL ANGEL, AN B Ot D64.9 ANEMIA, UNSPECIFIED 11/14/2019 TAM[facility] DEL ANGEL, AN B Ot E66.9 OBESITY, UNSPECIFIED 11/14/2019 TAM[facility] DEL ANGEL, AN B Ot F32.9 MAJOR DEPRESSIVE DISORDER, SINGLE EPISOD 11/14/2019 TAMARA DEL ANGEL, AN B Ot F41.9 ANXIETY DISORDER, UNSPECIFIED 11/14/2019 TAMARA DEL ANGEL, AN B Ot G43.9 09 MIGRAINE, UNSP, NOT INTRACTABLE, WITHOUT 11/14/2019 TAMARA DEL ANGEL, AN B Ot I10 ESSENTIAL (PRIMARY) HYPERTENSION 11/14/2019 TAMARA DEL ANGEL AN B Ot J40 BRONCHITIS, NOT SPECIFIED ACUTE OR CH [facility] B Ot K65.4 SCLEROSING MESENTERITIS 11/14/2019 TAMARA DEL ANGEL, AN B Ot K81.1 CHRONIC CHOLECYSTITIS 11/14/2019 TAMARA DEL ANGEL, AN B Ot K82.8 OTHER SPECIFIED DISEASES OF GALLBLADDER 11/14/2019 TAMARA DEL ANGEL, AN B Ot Z68.3 2 BODY MASS INDEX (BMI) 32.0-32.9, ADULT 11/14/2019 TAMARA DEL ANGEL AN B Ot Z79.8 99 OTHER [facility] (CURRENT) DRUG THERAPY 11/14/2019 TAMARA DEL ANGEL, AN B Ot Z80.0 FAMILY HISTORY OF MALIGNANT NEOPLASM OF 11/14/2019 TAMARA DEL ANGEL, AN B Ot Z88.1 ALLERGY STATUS TO OTHER ANTIBIOTIC AGENT 11/14/2019 TAMARA DEL ANGEL, AN B Ot Z90.7 10 ACQUIRED ABSENCE OF BOTH CERVIX AND UTER 11/14/2019 TAMARA DEL ANGEL, AN B Ot Z91.0 40 LATEX ALLERGY STATUS 11/18/2019 TAMARA DEL ANGEL, AN B Ot K76.8 9 OTHER SPECIFIED DISEASES OF LIVER 11/18/2019 TAMARA DEL ANGEL, AN B Ot R10.1 3 EPIGASTRIC PAIN 11/18/2019 TAMARA DEL ANGEL, AN B Ot R10.1 3 EPIGASTRIC PAIN 11/18/2019 Ot B96.81 HEL ICOBACTER PYLORI THE CAUSE OF DISE 11/18/2019 Ot Z09 ENCNTR FOR F/U EXAM AFT TRTMT FOR COND O Procedures Code Description [place] [address] ROUT INE VENIPUNCTURE 04/25/2013 96751 CBC 04/26/2013 [id number] GF R CALC (RESULT ONLY) 04/26/2013 14288 CMP 04/26/2013 49409 XRAY FOOT LEFT COMP MIN 3 VIEWS 01/16/2014 GENERAL S JERRY VILLALOBOS 01/23/2014 [id number] RE SECTION OF RIGHT LARGE INTESTINE, PERC 05/07/2018 [id number] RO BOTIC ASSISTED PROCEDURE OF TRUNK NUNO [...] 0.0-0.1 Whole blood basic metabolic panel - 08/16 05:36 Serum or plasma sodium measurement (moles/volume) [...] 0.0-0.1 Whole blood basic metabolic panel - 02/13 12:35 Serum or plasma sodium measurement (moles/volume) [...] roque - 05/06/18 12:35 ABO+Rh group AN NR Transfusion band number [id number] NRG Blood group antibody screen NEGATIVE NR [...] plasma calcium measurement (mass/volume) 8.9 mg/dL 8.5-10.1 CMP - 10/12/18 16:18 GLUCOSE 92 mg/dL 65-99 UREA NITROGEN (BUN) 12 mg/dL 7-25 CREATININE 0.68 mg/dL 0.50-1.10 eGFR NON-AFR. ALGERIAN 108 mL/min/1.73m2 > OR = 60 eGFR [...] AST 18 U/L 10-30 ALT 22 U/L - TSH w/ FREE T4 - 01/17/19 15:07 TSH 1.57 mIU/L NRG T4, FREE 0.9 ng/dL 0.8-1.8 ANEMIA PANEL - 01/17/19 15:07 IRON, TOTAL 21 mcg/dL 40-190 FERRITIN 6 ng/mL 16-232 IRON BINDING CAPACITY 473 mcg/dL (calc) 250-450 % SATURATION 4 % (calc) 16-45 CMP - 01/17/19 15:07 GLUCOSE 96 mg/dL 65-139 UREA NITROGEN (BUN) 14 mg/dL 7-25 CREATININE 0.67 mg/dL 0.50-1.10 eGFR NON-AFR. ALGERIAN 108 mL/min/1.73m2 > OR = 60 eGFR 125 mL/min/1.73m2 > OR = 60 BUN/CREATININE RATIO NOT APPLICABLE (calc) 6- SODIUM 137 mmol/L 135-146 POTASSIUM 3.9 mmol/L 3.5-5.3 CHLORIDE 105 mmol/L 98-110 CARBON DIOXIDE 23 mmol/L 20-32 CALCIUM 9.2 mg/dL 8.6-10.2 PROTEIN, TOTAL 7.1 g/dL 6.1-8.1 ALBUMIN 4.4 g/dL 3.6-5.1 GLOBULIN 2.7 g/dL (calc) 1.9-3.7 ALBUMIN/GLOBULIN RATIO 1.6 (calc) 1.0-2. 5 BILIRUBIN, TOTAL 0.5 mg/dL 0.2-1.2 ALKALINE PHOSPHATASE 81 U/L 33-115 AST 22 U/L 10-30 ALT 21 U/L 6-29 CBC - 01/17/19 15:07 WHITE BLOOD CELL [...] ADEQUATE ADEQUATE CBC MORPHOLOGY NORMAL COMMENT(S) NRG Methicillin resistant Staphylococcus aur eus (MRSA) screening culture - 08/31/19 06:50 Methicillin resistant Staphylococcus aureus (MRSA) scr eening culture NEG NRG Complete blood count (CBC) with automate d white blood cell (WBC) differential - 08/31/19 09:14 Blood leukocytes automated count (number/volume) 7.2 10*3/uL 4.3-11.0 Blood erythrocytes automated count (number/volume) 4.33 10*6/uL 4.35-5.85 Venous blood hemoglobin measurement (mass/volume) 13.2 g/dL 11.5-16.0 Blood hematocrit (volume fraction) 39 % 35-52 Automated erythrocyte mean corpuscular volume 89 [ foz_us] 80-99 Automated erythrocyte mean corpuscular h emoglobin (mass per erythrocyte) 30 pg 25-34 Automated erythrocyte mean corpuscular h emoglobin concentration measurement (mass/volume) 34 g/dL 32-36 Automated erythrocyte distribution width ratio 13. 9 % 10.0- 14.5 Automated blood platelet count (count/volume) 196 10*3/uL 130-400 Automated blood platelet mean volume measurement 11.5 [foz_us] 7.4-10.4 Automated blood neutrophils/100 leukocytes 68 % 42-75 Automated blood lymphocytes/100 leukocytes 23 % 12-44 Blood monocytes/100 leukocytes 9 % 0-12 Automated blood eosinophils/100 leukocytes 0 % 0-10 Automated blood basophils/100 leukocytes 0 % 0-10 Blood neutrophils automated count (number/volume) 4.9 10*3 1.8-7.8 Blood lymphocytes automated count (number/volume) 1.7 10*3 1.0-4.0 Blood monocytes automated count (number/volume) 0. 6 10*3 0.0-1.0 Automated eosinophil count 0.0 10*3/uL 0 .0-0.3 Automated blood basophil count (count/volume) 0.0 10*3/uL 0.0-0.1 Encounters ACCT No. Visit Date/Time Discharge Status Pt. Type Provider Facility Loc./Unit Complaint [id number] 11/16/2019 14:20:00 11/16/2019 23:59:5 9 CLS Outpatient LOGAN, YARI D [facility] [id number] 02/09/2019 13:45:00 Document Registration [id number] 01/17/2019 14:45:00 Document Registration [id number] 10/12/2018 15:20:00 Document Registration [id number] 04/01/2018 13:20:00 Document Registration [id number] 11/17/2017 12:20:00 Document Registration [id number] 11/11/2017 17:00:00 Document Registration [id number] 07/19/2019 11:20:00 00:01:00 DIS Outpatient TAMARA DEL ANGEL AN B [facility] LAB HPYLORI [id number] 08/31/2019 07:52:00 13:40:00 DIS Outpatient TAMARA DEL ANGEL AN B [facility] SDC BILIARY DYSKINESIA [id number] 08/25/2019 05:40:00 14:35:00 DIS Outpatient TAMARA DEL ANGEL AN B [facility] PREOP BILIARY DYSKINESIA [id number] 08/15/2019 10:15:00 10:15:00 CAN Preadmit YARI FORD [employer] [facility] RAD MASS OF LT UE [id number] 08/04/2019 09:55:00 23:59:59 CLS Outpatient TAMARA DEL ANGEL AN B [facility] CARD EPIGASTRIC PAIN [id number] 07/21/2019 08:22:00 23:59:59 CLS Outpatient TAMARA DEL ANGEL AN B [facility] RAD EPIGASTRIC PAIN [id number] 06/06/2019 07:52:00 11:05:00 DIS Outpatient TAMARA DEL ANGEL AN B [facility] ENDO MELENA [id number] 05/30/2019 05:44:00 019 11:07:00 DIS Outpatient TAMARA DEL ANGEL AN B [facility] PREOP COLONOSCOPY [id number] 05/07/2018 05:52:00 14:05:00 DIS Inpatient ROBBIE FOSTER, MATILDE Bowers [facility] 4TH CECAL MASS [id number] 05/06/2018 05:37:00 12:45:00 DIS Outpatient ROBBIE FOSTER, MATILDE Bowers [facility] PREOP CECAL MASS [id number] 04/28/2018 15:48:00 14:36:00 DIS Outpatient KASHMIR HUMPHRIES DO [facility] SDC RECTAL BLEEDING [id number] 04/28/2018 15:30:00 15:30:00 CAN Preadmit DAYANNA WHITLEY MD [facility] ER RECTAL BLEEDING [id number] 11/22/2019 15:05:[address] Outpatient NASIR RIOS APRN [facility] RAD SEVERE FRONTAL HEADACHES [id number] 10/18/2019 00:00:00 Document Registration [id number] 01/16/2014 14:59:00 01/16/2014 23:59: 59 CLS Outpatient SINGER FOSTER, YAMILETH Boykin [id number] 05/04/2013 15:06:00 05/04/2013 23:59: 59 CLS Outpatient LUCAS VARELA DDS
== END 2019-11-23 22:25 | disposition home or self-care (01) ==
LOC: EDUNIT# 21:39 → ER FS 21:41
DX: G43.909 Migraine, unspecified, not intractable, without status migrainosus (principal); I10 Essential (primary) hypertension; K21.9 Gastro-esophageal reflux disease without esophagitis; D64.9 Anemia, unspecified; F32.9 Major depressive disorder, single episode, unspecified; Z88.1 Allergy status to other antibiotic agents; Z91.040 Latex allergy status
CPT/HCPCS: 96374; 96375

== ENCOUNTER → 2020-11-20 | Outpatient (CLI) | payer BC ==
[~2020-11-20] VITALS: Ht 172.7 cm; Wt 104.5 kg
[~2020-11-20] MED LIST changes: +SMTR50T PO
== END ==
LOC: PREOP 13:44
PROVIDERS: ATTEND Surgery
DX: Z01.818 Encounter for other preprocedural examination (principal); D64.9 Anemia, unspecified; K92.1 Melena

== ENCOUNTER 2020-11-21 11:11 | Day surgery (SDC) | payer BC ==
[~2020-11-21] VITALS: Ht 172.7 cm; Wt 104.5 kg
[2020-11-21] MEDS ORDERED: LACTATED RINGERS 1,000 ML IV STA (11:27)
[2020-11-21 11:39] VITALS: BP 149/80
[2020-11-21] MEDS ORDERED: MIDAZOLAM 2 MG/2 ML (VERSED) VIAL ONE (11:41)
[2020-11-21] MEDS ORDERED: PROPOFOL INJECTION 50 ML IV ONE (11:41)
[2020-11-21] MEDS ORDERED: HURRICAINE EXT TUBE (BENZOCAINE) XX PRN (12:00)
[2020-11-21 12:15] VITALS: BP 129/60
--- NOTE | 2020-11-21 12:18 | Progress Note-Post Operative ---
Post-Operative Progess Note Surgeon (s)/Vocational Rehab Consultant (s) Surgeon AN MCDONALD DO Vocational Rehab Consultant: none Pre-Operative Diagnosis melena, anemia, hx gastritis, polyps Post-Operative Diagnosis Gastritis Hiatal hernia Polyp int hemorrhoids Procedure & Operative Findings Date of Procedure 11/21/20 Procedure Performed/Findings PROCEDURE NOTE: After informed consent was obtained, the patient was brought to the endoscopy suite, placed in bed in left lateral decubitus position. She was administered IV sedation by the VETERINARIAN SMALL ANIMAL who then monitored her vitals the entire time, heart rate, blood pressure and pulse ox, started with the EGD, placed the scope down the mouth through the esophagus into the stomach, noted mild gastritis, took a picture, pushed into the duodenum. Duodenum was normal. Pulled back and did a biopsy of the antrum and then retroflexed the scope. She had a hiatal hernia, pulled the scope into the GE junction, did a biopsy here and then pushed the scope back into the stomach and suctioned all the air out, then pulled the scope up the esophagus and out the mouth. Switched camera, switched gloves, went down below, started the colonoscopy. Then pushed all the way to the anastomosis about 100 cm in, took a picture of the anastomosis and noted the ileum; took a picture. Just outside this area, probably where polyps were found last time; more flat polyps were seen. Elected to do hot biopsies of this area; did two to make sure I got a good specimen. Then slowly withdrew the scope insufflating to look circumferentially at the portillo looking at the transverse colon and then continued down to the splenic flexure, into the descending colon down into the sigmoid and finally into the rectum, retroflexed in the rectal vault, saw sojme minimal internal hemorrhoids and took a picture.Then removed the scope. The patient tolerated the procedure. She was recovered in the endoscopy suite. Anesthesia Type IV sedation by VETERINARIAN SMALL ANIMAL Estimated Blood Loss Estimated blood loss (mL): scant Specimens/Packing Specimens Removed antral bx GE jxn bx Polyps near anastomosis AN MCDONALD DO November 21, 2020 12:18
--- NOTE | 2020-11-21 12:18 | Anesthesia-General Post-Op ---
MAC Patient Condition Mental Status/LOC: Same as Preop Cardiovascular: Satisfactory Nausea/Vomiting: Absent Respiratory: Satisfactory Pain: Controlled Complications: Absent Post Op Complications Complications None Follow Up Care/Instructions Patient Instructions None needed. Anesthesiology Discharge Order Discharge Order Patient is doing well, no complaints, stable vital signs, no apparent adverse anesthesia problems. No complications reported per nursing. ARIANE NEWMAN CRNA November 21, 2020 12:17
--- NOTE | 2020-11-21 12:19 | Endoscopy Discharge Instruct ---
Endo Procedure/Findings Findings 1.: Gastritis 2.: Hiatal Hernia 3.: Polyp 4.: Internal Hemorrhoids Discharge Instructions - Activity: You might feel a little sleepy until tomorrow. This is due to the medicine you received to relax you. Until tomorrow, you should: NOT drive a car, operate machinery or power tools. NOT drink any alcoholic beverages. NOT make any important decisions or sign importortant papers. Do not return to work until tomorrow, unless otherwise instructed. Resume previous activities tomorrow. Diet: Start by taking liquids. If you tolerate liquids, advance to solid food. 1.: Colonscopy in 5 years 2.: EGD in 3 years Notify Physician - If you experience excessive bleeding, unusual abdominal pain, fever, or chest pain, contact your doctor immediately. AN MCDONALD DO November 21, 2020 12:19
[2020-11-21 12:20] VITALS: BP 130/62
[2020-11-21 12:25] VITALS: BP 130/62
[2020-11-21 12:57] VITALS: BP 125/60
== END 2020-11-21 13:05 | disposition home or self-care (01) ==
LOC: ENDO 11:11
PROVIDERS: ATTEND Surgery
DX: K29.50 Unspecified chronic gastritis without bleeding (principal); K63.5 Polyp of colon; K92.1 Melena; K21.00 Gastro-esophageal reflux disease with esophagitis, without bleeding; D64.9 Anemia, unspecified; K64.8 Other hemorrhoids; K44.9 Diaphragmatic hernia without obstruction or gangrene; E66.9 Obesity, unspecified; D50.9 Iron deficiency anemia, unspecified; G43.909 Migraine, unspecified, not intractable, without status migrainosus; F32.9 Major depressive disorder, single episode, unspecified; Z98.0 Intestinal bypass and anastomosis status; Z79.899 Other long term (current) drug therapy; Z90.710 Acquired absence of both cervix and uterus; Z90.49 Acquired absence of other specified parts of digestive tract; Z87.891 Personal history of nicotine dependence; Z98.51 Tubal ligation status; Z68.35 Body mass index [BMI] 35.0-35.9, adult; Z80.0 Family history of malignant neoplasm of digestive organs; Z82.49 Family history of ischemic heart disease and other diseases of the circulatory system
CPT/HCPCS: 88305

== ENCOUNTER 2020-12-09 20:59 | Emergency (ER) | payer BC ==
[~2020-12-09] VITALS: Ht 172.7 cm; Wt 101.3 kg
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
[2020-12-09 21:11] VITALS: BP 161/71
== END 2020-12-09 21:26 | disposition home or self-care (01) ==
LOC: EDUNIT# 20:59 → ER FS 21:01
DX: T24.132A Burn of first degree of left lower leg, initial encounter (principal); I10 Essential (primary) hypertension; G43.909 Migraine, unspecified, not intractable, without status migrainosus; K21.9 Gastro-esophageal reflux disease without esophagitis; G89.29 Other chronic pain; M54.9 Dorsalgia, unspecified; F32.9 Major depressive disorder, single episode, unspecified; Z79.899 Other long term (current) drug therapy; Z79.891 Long term (current) use of opiate analgesic; X04.XXXA Exposure to ignition of highly flammable material, initial encounter
CPT/HCPCS: 99282

== ENCOUNTER → 2021-04-23 | Outpatient (CLI) | payer BC ==
[~2021-04-23] MED LIST changes: -OMEP40CA27 PO; +OMEP40CA6 PO
== END ==
LOC: CARD 14:30
PROVIDERS: ATTEND Nurse Practitioner Family
DX: M79.89 Other specified soft tissue disorders (principal); I10 Essential (primary) hypertension
CPT/HCPCS: 93306

== ENCOUNTER → 2021-05-02 | Outpatient (CLI) | payer BC ==
[2021-05-02 15:14] LABS: CHOLESTEROL 194 MG/DL (< 200); HDL CHOLESTEROL 48 MG/DL (40-60); TRIGLYCERIDES 88 MG/DL (<150); VLDL CHOLESTEROL 18 MG/DL (5-40)
== END ==
LOC: LAB FS 08:40
PROVIDERS: ATTEND Internal Medicine Cardiovascular Disease
DX: I10 Essential (primary) hypertension (principal)
CPT/HCPCS: 36415; 80061; 82088; 84244

== ENCOUNTER → 2021-06-05 | Outpatient (CLI) | payer BC ==
--- NOTE | 2021-06-05 11:09 | Diagnostic Imaging Report ---
INDICATION: Hypertension Grayscale imaging of the kidneys was performed. Color Doppler velocity and spectral waveform analysis of the renal arteries was performed. Both kidneys measure approximately 12.5 cm in length. Cortex is well maintained with no mass, calculus or hydronephrosis seen on either side. There are no velocities or waveform changes to suggest any significant renal artery stenosis. IMPRESSION: No abnormality is seen. No renal artery stenosis is evident. Dictated by: Dictated on workstation # [id number]
== END ==
LOC: RAD 09:00
PROVIDERS: ATTEND Internal Medicine Cardiovascular Disease
DX: I10 Essential (primary) hypertension (principal)
CPT/HCPCS: 76770; 93975

== ENCOUNTER 2022-07-30 07:43 | Emergency (ER) | payer BC ==
[~2022-07-30] VITALS: Ht 170 cm; Wt 98.0 kg
[2022-07-30] MEDS ORDERED: NS IV 1000 ML 1,000 ML IV STA (07:51)
[2022-07-30 08:06] LABS: BASOPHILS % (AUTO) 0 % (0-10); EOSINOPHILS % (AUTO) 0 % (0-10); HEMATOCRIT 26 % (35-52); HEMOGLOBIN 7.8 g/dL (11.5-16.0); LYMPHOCYTES # (AUTO) 1.5 10^3/uL (1.0-4.0); LYMPHOCYTES % (AUTO) 17 % (12-44); MEAN CORPUSCULAR HEMOGLOBIN 25 pg (25-34); MEAN CORPUSCULAR HGB CONC 31 g/dL (32-36); MEAN CORPUSCULAR VOLUME 81 fL (80-99); MEAN PLATELET VOLUME 12.2 fL (9.0-12.2); MONOCYTES # (AUTO) 0.5 10^3/uL (0.0-1.0); MONOCYTES % (AUTO) 6 % (0-12); NEUTROPHILS # (AUTO) 6.8 10^3/uL (1.8-7.8); NEUTROPHILS % (AUTO) 76 % (42-75); PLATELET COUNT 285 10^3/uL (130-400); WHITE BLOOD COUNT 8.9 10^3/uL (4.3-11.0)
--- NOTE | 2022-07-30 08:09 | ED General ---
General Chief Complaint: Dizziness/Syncope Stated Complaint: SYNCOPAL EPISODE Nursing Triage Note: PT REPORTS SHE DID NOT FEEL WELL UPON AWAKENING THIS AM BUT WENT TO WORK ANYWAY. SHE BECAME DIAPHORETIC, LIGHTHEADED, AND DIZZY AND PASSED OUT WHILE AT WORK. DENIES ANY OTHER SYMPTOMS OR BEING ILL RECENTLY. Source of Information: Patient, EMS, Old Records (Reviewed Echocardiogram, ECG and Dr. Varela's cardiology notes from 2020, 2017 and 2010) Exam Limitations: No Limitations History of Present Illness Date Seen by Provider: Jul 30, 2022 Time Seen by Provider: 07:43 Initial Comments 46-year-old female presenting by EMS from work at [employer]. She has a history of hypertension and takes metoprolol, amlodipine, losartan for her pressure. She states that she woke up this morning and was not feeling well. She felt "clammy" and dizzy. She had her daughter take her vital signs and noted that her temperature was low at 94.8 and her blood pressure was 96/50. Her heart rate was 55. Because she was not running a fever she had gone into work. After getting to work she had forgotten the cold sweat and felt more lightheaded and dizzy. She had nearly passed out while at work. She denies any other symptoms of being ill recently and no known ill contacts. She denies fever, chills, nausea, vomiting, abdominal pain, chest pain, headache, nasal congestion, sore throat, pain with urination, diarrhea. She denies missing any doses of her medications. She denies having symptoms like this previously. As patient had a near syncopal episode at work EMS provides some history as independent historians stating that bystanders say she did not completely pass out or lose consciousness and patient was initially pale and diaphoretic. her color improved as she was laying on the EMS cot and getting IVF for hydration of Normal saline. Her glucose accucheck was 151. Location Injury Occurred: [employer] Timing/Duration: 1-3 Hours Severity: Severe Modifying Factors: worse with Movement (Being up moving around makes her more dizzy and lightheaded) Associated Systoms: No Chest Pain, No Cough; Diaphoresis; No Fever/Chills, No Headaches, No Loss of Appetite; Malaise; No Nausea/Vomiting, No Rash, No Seizure, No Shortness of Air, No Syncope; Weakness (Generalized) Allergies and Home Medications Allergies Coded Allergies: cephalexin (Verified Allergy, Intermediate, rash, 08/25/19) latex (Unverified Allergy, Intermediate, HIVES AND SWELLING, 08/25/19) Patient Home Medication List Home Medication List Reviewed: Yes Bupropion HCl (Wellbutrin Sr) Unknown Strength Tablet.er, Unknown Dose PO DAILY, (Reported) Entered as Reported by: ATUL DRAPER on 05/30/19 1045 Ferrous Sulfate (Iron) 325 Mg Tablet, 325 MG PO DAILY, (Reported) Entered as Reported by: ATUL DRAPER on 05/30/19 1045 Hydrochlorothiazide (Hydrochlorothiazide) 12.5 Mg Tablet, 12.5 MG PO DAILY, (Reported) Entered as Reported by: ATUL DRAPER on 05/30/19 1105 Hydrocodone Bit/Acetaminophen (HYDROcodone/APAP 10/325 TABLET) 1 Ea Tab, 1 TAB PO Q6H Prescribed by: AN MCDONALD on 08/31/19 1056 Losartan Potassium (Losartan Potassium) 50 Mg Tablet, 50 MG PO DAILY, (Reported) Entered as Reported by: ATUL DRAPER on 05/30/19 1106 Omeprazole (Omeprazole) 40 Mg Capsule.dr, 40 MG PO DAILY, (Reported) Entered as Reported by: ATUL DRAPER on 05/30/19 1106 Sucralfate (Sucralfate) 1 Gram Tablet, 1 GM PO ACHS Prescribed by: PARMINDER ZHANG on 07/30/22 0919 Sumatriptan Succinate (Imitrex) 50 Mg Tab, 50 MG PO UD Prescribed by: TIERA HEBERT on 11/23/192221 Review of Systems Review of Systems Constitutional: see HPI, dizziness EENTM: No ear pain, No vision loss, No epistaxis, No nose congestion, No throat pain Respiratory: no symptoms reported Cardiovascular: No chest pain Gastrointestinal: No abdominal pain, No diarrhea, No nausea, No vomiting Genitourinary: No dysuria : No (hysterectomy) Musculoskeletal: no symptoms reported Skin: No rash Psychiatric/Neurological: Denies Headache; Weakness, Other (near syncope) Hematologic/Lymphatic: Denies Blood Clots Past [id number] Hx Patient Social History Tobacco Use?: No Use of E-Cig and/or Vaping dev: No Substance use?: No Alcohol Use?: No Pt feels they are or have been: No Seasonal Allergies Seasonal Allergies: Yes Past Medical History Surgery/Hospitalization HX: HYSTERECTOMY TUBAL LIGATION COLON RESECTION GALL BLADDER HYPERTENSION Surgeries: Yes (BOWEL RESECTION) Bowel Surgery, Gallbladder, Hysterectomy, Tonsillectomy, Tubal Ligation Respiratory: Yes Chronic Bronchitis Currently Using CPAP: No Currently Using BIPAP: No Cardiac: Yes Hypertension Neurological: Yes Headaches /Migraines Reproductive Disorders: Yes (HYPERMENORRHEA, METROMENORRHAGIA, ANEMIA) Female Reproductive Disorders: Denies 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 Sexually Transmitted Disease: No HIV/AIDS: No Genitourinary: No Gastrointestinal: Yes (cecal mass) Gastroesophageal Reflux, Chronic Constipation Musculoskeletal: Yes Chronic Back Pain Endocrine: No HEENT: Yes (GLASSES) Loss of Vision: Denies Hearing Impairment: Denies Cancer: No Psychosocial: Yes Anxiety, Depression Integumentary: No Blood Disorders: Yes (anemia) Adverse Reaction/Blood Tranf: No (N/A) Family Medical History NEROFIBROMATOUS 19 MOTHER Neoplasm 19 FATHER (INTESTINAL CA AND LUNG CA) Physical Exam Vital Signs Vital Signs - First Documented 07/30/22 07:45 Temp 35.3 Pulse 68 Resp 16 B/P (MAP) 109/58 (75) Pulse Ox 100 O2 Delivery Room Air Capillary Refill : Less Than 3 Seconds Height, Weight, BMI Height: 5'8.00" Weight: 207lbs. 0.0oz. 93.841077at; 33.00 BMI Method: General Appearance: No Apparent Distress, WD/WN HEENT: PERRL/EOMI, Pharynx Normal, Moist Mucous Membranes Neck: Full Range of Motion, Normal Inspection, Non Tender, Supple Respiratory: Chest Non Tender, Lungs Clear, Normal Breath Sounds, No Accessory Muscle Use, No Respiratory Distress Cardiovascular: Regular Rate, Rhythm, No Murmur, Normal Peripheral Pulses Gastrointestinal: Normal Bowel Sounds, No Pulsatile Mass, Non Tender, Soft Rectal: Deferred Back: No CVA Tenderness, No Vertebral Tenderness Extremity: Normal Capillary Refill, Normal Inspection, Normal Range of Motion, No Calf Tenderness, No Pedal Edema Neurologic/Psychiatric: Alert, 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, 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 Skin: Normal Color, Warm/Dry Progress/Results/Core Measures Suspected Sepsis SIRS Temperature: Pulse: 68 Respiratory Rate: 16 Laboratory Tests 2/1/23 07:50: White Blood Count 8.9 Blood Pressure 109 /58 Mean: 75 Laboratory Tests 07/30/22 07:50: Creatinine 0.60, INR Comment 1.0, Platelet Count 285, Total Bilirubin 0.3 Results/Orders Lab Results Laboratory Tests Test 07/30/22 07:50 07/30/22 08:02 07/30/22 08:08 Range/Units White Blood Count 8.9 4.3-11.0 10^3/uL Red Blood Count 3.14 L 3.80-5.11 10^6/uL Hemoglobin 7.8 L 11.5-16.0 g/dL Hematocrit 26 L 35-52 % Mean Corpuscular Volume 81 80-99 fL Mean Corpuscular Hemoglobin 25 25-34 pg Mean Corpuscular Hemoglobin Concent 31 L 32-36 g/dL Red Cell Distribution Width 15.9 H 10.0-14.5 % Platelet Count 285 130-400 10^3/uL Mean Platelet Volume 12.2 9.0-12.2 fL Immature Granulocyte % (Auto) 1 % Neutrophils (%) (Auto) 76 H 42-75 % Lymphocytes (%) (Auto) 17 12-44 % Monocytes (%) (Auto) 6 0-12 % Eosinophils (%) (Auto) 0 0-10 % Basophils (%) (Auto) 0 0-10 % Neutrophils # (Auto) 6.8 1.8-7.8 10^3/uL Lymphocytes # (Auto) 1.5 1.0-4.0 10^3/uL Monocytes # (Auto) 0.5 0.0-1.0 10^3/uL Eosinophils # (Auto) 0.0 0.0-0.3 10^3/uL Basophils # (Auto) 0.0 0.0-0.1 10^3/uL Immature Granulocyte # (Auto) 0.1 0.0-0.1 10^3/uL Prothrombin Time 14.0 12.2-14.7 SEC INR Comment 1.0 0.8-1.4 Activated Partial Thromboplast Time 26 24-35 SEC Sodium Level 137 135-145 MMOL/L Potassium Level 4.4 3.6-5.0 MMOL/L Chloride Level 108 H 98-107 MMOL/L Carbon Dioxide Level 19 L 21-32 MMOL/L Anion Gap 10 5-14 MMOL/L Blood Urea Nitrogen 22 H 7-18 MG/DL Creatinine 0.60 0.60-1.30 MG/DL Estimat Glomerular Filtration Rate 112 BUN/Creatinine Ratio 37 Glucose Level 131 H 70-105 MG/DL Calcium Level 8.8 8.5-10.1 MG/DL Corrected Calcium 8.9 8.5-10.1 MG/DL Magnesium Level 2.0 1.6-2.4 MG/DL Total Bilirubin 0.3 0.1-1.0 MG/DL Aspartate Amino Transf (AST/SGOT) 25 5-34 U/L Alanine Aminotransferase (ALT/SGPT) 41 0-55 U/L Alkaline Phosphatase 95 40-136 U/L Troponin I < 0.30 <0.30 NG/ML Pro-B-Type Natriuretic Peptide 10.9 <125.0 PG/ML Total Protein 6.5 6.4-8.2 GM/DL Albumin 3.9 3.2-4.5 GM/DL Lipase 38 8-78 U/L Influenza Type A (RT-PCR) Not Detected Not Detecte Influenza Type B (RT-PCR) Not Detected Not Detecte SARS-CoV-2 RNA (RT-PCR) Not Detected Not Detecte Urine Color YELLOW Urine Clarity CLEAR Urine pH 6.0 5-9 Urine Specific Mobile 1.025 H 1.016-1.022 Urine Protein NEGATIVE NEGATIVE Urine Glucose (UA) NEGATIVE NEGATIVE Urine Ketones NEGATIVE NEGATIVE Urine Nitrite NEGATIVE NEGATIVE Urine Bilirubin NEGATIVE NEGATIVE Urine Urobilinogen 0.2 < = 1.0 MG/DL Urine Leukocyte Esterase NEGATIVE NEGATIVE Urine RBC (Auto) NEGATIVE NEGATIVE Urine RBC NONE /HPF Urine WBC 2-5 /HPF Urine Squamous Epithelial Cells 10-25 H /HPF Urine Crystals NONE /LPF Urine Bacteria FEW H /HPF Urine Casts NONE /LPF Urine Mucus MODERATE H /LPF Urine Culture Indicated NO Urine Opiates Screen NEGATIVE NEGATIVE Urine Oxycodone Screen NEGATIVE NEGATIVE Urine Methadone Screen NEGATIVE NEGATIVE Urine Propoxyphene Screen NEGATIVE NEGATIVE Urine Barbiturates Screen NEGATIVE NEGATIVE Ur Tricyclic Antidepressants Screen POSITIVE H NEGATIVE Urine Phencyclidine Screen NEGATIVE NEGATIVE Urine Amphetamines Screen NEGATIVE NEGATIVE Urine Methamphetamines Screen NEGATIVE NEGATIVE Urine Benzodiazepines Screen NEGATIVE NEGATIVE Urine Cocaine Screen NEGATIVE NEGATIVE Urine Cannabinoids Screen NEGATIVE NEGATIVE My Orders Orders - PARMINDER ZHANG MD Cbc With Automated Diff (07/30/22 07:49) Magnesium (07/30/22 07:49) Ekg Tracing (07/30/22 07:49) Comprehensive Metabolic Panel (07/30/22 07:49) Protime With Inr (07/30/22 07:49) Partial Thromboplastin Time (07/30/22 07:49) O2 (07/30/22 07:49) Monitor-Rhythm Ecg Trace Only (07/30/22 07:49) Ed Iv/Invasive Line Start (07/30/22 07:49) Lipase (07/30/22 07:49) Troponin I Fs (07/30/22 07:49) Probnp Fs (07/30/22 07:49) Ua Culture If Indicated (07/30/22 07:49) Drug Screen Stat (Urine) (07/30/22 07:49) Covid 19 Inhouse Test (07/30/22 07:49) Influenza A And B By Pcr (07/30/22 07:49) Ns Iv 1000 Ml (Sodium Chloride 0.9%) (07/30/22 07:51) Orthostatic Vital Signs (Adult (07/30/22 09:07) Vital Signs/I&O 07/30/22 07/30/22 07/30/22 07/30/22 07:45 08:03 09:13 09:16 Temp 35.3 36.5 Pulse 68 68 60 63 63 Resp 16 16 B/P (MAP) 109/58 (75) 127/53 (77) 123/60 111/51 (71) 101/53 (69) Pulse Ox 100 100 98 O2 Delivery Room Air Room Air Room Air Capillary Refill : Less Than 3 Seconds Blood Pressure Mean: 75 Progress Note #1: Progress Note Potential life-threatening conditions of myocardial infarction, sepsis, COVID, influenza, dehydration with renal failure, hepatic failure, urinary tract infection. Placed patient on cardiac telemetry monitoring which may personal interpretation is that it shows sinus bradycardia with heart rate in the 50s without ectopy or ischemic changes. Her oxygen saturation was 100% on room air and initial blood pressure was 109/58. Obtain electrocardiogram to evaluate her heart rate and rhythm further for ischemic changes or ectopy or arrhythmia. Patient had peripheral IV access started by EMS. Will draw labs including complete blood count to look for anemia, elevated white count for infection, the WBC Differential showed no significant left shift or abnormal cells. White count to look for leukemia or lymphoma. Complete metabolic profile to evaluate her electrolytes for imbalance, renal failure, hepatic failure. Cardiac enzymes and troponin and proBNP to look at signs of acute cardiac disease, acute myocardial infarction, acute congestive heart failure. Urinalysis to look for signs of infection, renal failure, hematuria that might indicate bladder cancer or renal cancer. Nasal swab to check for COVID and influenza since she has vague symptoms of not feeling well and near syncope. Urine drug screen to look for any illicit substances in her system that might be contributing to how she feels. I did review the prescription drug monitoring program website for the patient and she had no controlled substances being prescribed. Since she was not having a significant cough and had no headache or neurologic deficits will defer a chest x-ray and CT scan of her head to look for pneumonia, pleural effusion, stroke, brain mass, sinusitis, intracranial hemorrhage. Administer NS 1 L IVF bolus for hydration since she had a near syncopal episode she might be dehydrated or slightly dry contributing to near syncope with her taking 3 blood pressure medicines and having borderline low blood pressure this morning. Progress Note #2: Time: 08:31 Progress Note Blood count shows that the patient has anemia with hemoglobin of 7.8. With review of her old records in the EMR she had last blood work August 2019 that showed Hemoglobin of 13.2 and April 2018 she was 8.2. On further review of the EMR she had observation admit with Dr. Rosalva Aguilar for [facility] service in April 2018 and her presentation then was very similar to today with near syncope and having black tarry stools. When asking patient if she had change in her stools she now admits she has had black tarry stools off and on in the last 2 weeks. She had gone to the [facility] clinic yesterday and they ordered blood work which she was going to do tomorrow. They also ordered a consult to Dr. Mcdonald for repeat endoscopy. She has had a history of gastritis with upper GI bleeding as well as multiple polyps in her colon. She had a right hemicolectomy in April 2018 due to GI bleeding and polyps. She does continue to take the omeprazole for a proton pump inhibitor to help with gastritis and iron prescription pills for anemia and chronic blood loss. On further review of her past medical records in the EMR, Dr. Morgan, a surgeon, had performed her endoscopy in April 2018 and on May 07, 2018 performed a right h emicolectomy with intracorporeal anastomosis due to GI bleeding and a polyp found in her colon. She has a family history of her father having colon cancer so they had removed the part of the colon to have the polyp. This was found to be negative for malignancy. Her Coagulating tests of Protime/INR and PTT were in normal range to help rule out coagulopathy causing her anemia. Progress Note #3: Time: 09:01 Progress Note Nasal swab for Covid and Influenza showed that both of these viruses were absent and not playing a role with her near syncope. Her comprehensive metabolic panel showed slight elevation of her BUN to 22 which could be elevated from some dehydration as well as possibly from intestinal metabolism of a GI bleed. Her cardiac enzymes of troponin was less than 0.3 to help rule out myocardial infarction or cardiac source of her near syncope. Her liver enzymes and lipase were normal to help rule out hepatic failure or pancreatitis. The urinalysis was showing some dehydration as evidenced by a slightly elevated specific gravity of 1.025. She had no signs of infection on the urinalysis. Her urine drug screen was positive only for tricyclic antidepressants which patient admits to taking. I ordered orthostatic vital signs as the patient had improved blood pressure with the normal saline 1 L IV fluid bolus and states that she was feeling better and not as dizzy. The orthostatic vital signs is have a variation over 20 points with her systolic blood pressure dropping from 127 laying in bed to standing at 101. Heart rate stable which is to be expected with her having metoprolol as one of her medicines and it will keep heart rate low. Symptomatically she did not feel more dizzy or lightheaded with standing. I spoke with surgeon Dr. An Mcdonald, as he had previously done an endoscopy on the patient. Also Dr. Mcdonald is the surgeon that she was referred to yesterday when she was seen in the [facility]. I reviewed her presentation today of having the near syncope as well as borderline low blood pressure with a hemoglobin found to be 7.8 down from her 13.2 in 2019. He advised that if she was hemodynamically stable and being sent home that he could see her in the clinic tomorrow and set up an endoscopy. If she was not hemodynamically stable and required admission he would be happy to consult on the patient for the [facility] admitting staff. I advised him that while I had considered admit for her anemia and near syncope, she is improved with the NS 1 Liter IV fluid bolus and seems to be stable and safe for discharge to home. Will stress return precautions of worsening bleeding, increasing dizziness, passing out. Advised patient to call Dr. Mcdonald's office and let them know he had wanted to see her tomorrow. That way they should be able to get her on the schedule tomorrow rather than having her appointment pushed further out. Dr. Mcdonald will see her in the clinic and arrange for endoscopy as an outpatient. Again this is all provided she does not have any worsening problems or changes in the meantime. We will add on Carafate 1 g by mouth 4 times a day to help w ith possible upper GI bleeding and gastritis as a source of her black tarry stools and anemia. Have her continue to take the omeprazole 40 mg once a day and her iron supplements. Advised against taking any NSAIDs or anti- inflammatories that could irritate her stomach and cause more bleeding. Given a note to be off work until Thursday so that she would be able to rest and hydrate t ene as well as get into see Dr. Mcdonald tomorrow so her endoscopy could be arranged. Patient was agreeable with the plan and understood her strict return precautions. I ECG Initial ECG Impression Date: Jul 30, 2022 Initial ECG Impression Time: 08:00 Initial ECG Rate: 53 Initial ECG Rhythm: S.Berhane Initial ECG Comparisson: Unchanged (04/28/2018 ECG similar to today) Comment Based on my Personal interpretation and review her electrocardiogram shows sinus bradycardia with a heart rate of 53 bpm. MA interval [address] elevation. QT interval 438 ms with a QTc interval 421 ms. Overall this appears similar to prior tracing from April 28, 2018. Departure Impression Primary Impression: Acute on chronic blood loss anemia Additional Impressions: GIB (gastrointestinal bleeding) Qualified Codes: K92.2 - Gastrointestinal hemorrhage, unspecified Black tarry stools Postural dizziness with near syncope Disposition: 01 HOME, SELF-CARE Condition: Stable Departure-Patient Inst. Decision time for Depature: 09:24 Referrals: KERVIN BARRON APRN (PCP) Primary Care Physician AN MCDONALD DO Patient Instructions: Anemia, Possibly From Low Iron, Adult ED, Dizziness, Adult ED, Fainting, Adult ED, Gastrointestinal Bleeding (DC) Add. Discharge Instructions: Stay well-hydrated and drink plenty of fluids. Continue on your current medications especially with the omeprazole to help with gastritis and bleeding from your stomach and your iron pills. Additionally start taking the Carafate or sucralfate to help with healing the lining of your stomach as this is a likely source of some of the black and tarry stools you have been having as well as your anemia with your hemoglobin down to 7.8. Call Dr. Mcdonald's office today and let them know that you are in the emergency department and he was notified of this and wanted to see you in the clinic tomorrow to set up endoscopy testing for your bleeding. If you have worsening symptoms, increasing dizziness, increasing blood in your stools then return to be seen again as you may need to be admitted for IV fluids for hydration, more emergent scopes to look for bleeding and possible transfusion if your hemoglobin continues to drop. All discharge instructions reviewed with patient and/or family. Voiced understanding. Scripts Sucralfate (Sucralfate) 1 Gram Tablet 1 GM PO ACHS for GI Bleeding for 14 Days, #56 TAB 1 Refill Chew tablet to a slurry and then swallow Prov: PARMINDER ZHANG MD 07/30/22 Work/School Note: Work Release Form Date Seen in the Emergency Department: Jul 30, 2022 Return to Work: Aug 01, 2022 Restrictions: No Restrictions PARMINDER ZHANG MD Jul 30, 2022 08:09
[2022-07-30 08:14] LABS: BILIRUBIN,URINE NEGATIVE (NEGATIVE); CLARITY,URINE CLEAR; COLOR,URINE YELLOW; GLUCOSE, URINE (UA) NEGATIVE (NEGATIVE); KETONES,URINE NEGATIVE (NEGATIVE); LEUKOCYTE ESTERASE ,URINE NEGATIVE (NEGATIVE); NITRITE,URINE NEGATIVE (NEGATIVE); PROTEIN,URINE NEGATIVE (NEGATIVE)
[2022-07-30 08:31] LABS: BACTERIA,URINE FEW /HPF
[2022-07-30 08:32] LABS: AMPHETAMINE SCREEN, URINE NEGATIVE (NEGATIVE); BARBITURATE SCREEN URINE NEGATIVE (NEGATIVE); BENZODIAZEPINES SCREEN URINE NEGATIVE (NEGATIVE); CANNABINOID SCREEN, URINE NEGATIVE (NEGATIVE); COCAINE SCREEN URINE NEGATIVE (NEGATIVE); METHADONE STAT NEGATIVE (NEGATIVE); OPIATE SCREEN URINE NEGATIVE (NEGATIVE); OXYCODONE STAT NEGATIVE (NEGATIVE); PROPOXYPHENE STAT NEGATIVE (NEGATIVE); TRICYCLIC ANTIDEPRESSANTS SCRE POSITIVE (NEGATIVE)
[2022-07-30 08:38] LABS: BILIRUBIN,TOTAL 0.3 MG/DL (0.1-1.0); CALCIUM 8.8 MG/DL (8.5-10.1); CREATININE SERUM 0.6 MG/DL (0.60-1.30); POTASSIUM 4.4 MMOL/L (3.6-5.0)
[2022-07-30 08:39] LABS: ALBUMIN 3.9 GM/DL (3.2-4.5); TOTAL PROTEIN 6.5 GM/DL (6.4-8.2)
[2022-07-30 09:13] VITALS: BP_SYST 101; BP_SYST 111; BP_SYST 127; BP_DIAS 51; BP_DIAS 53
[2022-07-30 09:16] VITALS: BP 123/60
[2022-07-30] MEDS ORDERED: SUCR1TAB PO (09:19)
== END 2022-07-30 09:28 | disposition home or self-care (01) ==
LOC: EDUNIT# 07:43 → ER FS 07:44
DX: D62 Acute posthemorrhagic anemia (principal); K92.2 Gastrointestinal hemorrhage, unspecified; R55 Syncope and collapse; I10 Essential (primary) hypertension; Z91.040 Latex allergy status; Z20.822 Contact with and (suspected) exposure to COVID-19
CPT/HCPCS: 36415; 80053; 80306; 81000; 83690; 83735; 83880; 84484; 85025; 85610; 85730; 87636; 93041

== ENCOUNTER 2022-08-01 15:18 | Emergency (ER) | payer BC ==
[2022-08-01] VITALS (7 sets, daily range): BP systolic 134–152; BP diastolic 68–85
[~2022-08-01] VITALS: Ht 170.2 cm; Wt 97.5 kg
[~2022-08-01 15:18] MED LIST changes: -AMIT25TA9 PO; -AMLO-250 PO; -BUPR300T98 PO; -CLIN-144 PO; -ESCI20TA39 PO; -FAMO10TA43 PO; -MTP100TCR PO; -MULT-1136 PO; -NF-ESOM40C PO
--- NOTE | 2022-08-01 16:36 | ED GI ---
General Chief Complaint: Abdominal/GI Problems Stated Complaint: IRR LAB RESULTS Nursing Triage Note: pt ambulatory to room. states she was seen 2 days ago for bloody stools and hgb was 7.8. pt reports hgb of 6.1 today and was sent here. pt states she is "slightly short of breath," and states she has had "black tarry stools that started thursday" and accompanied with "slight abd pain." pt vital signs stable on arrival, pt A&Ox4, speech normal. Source of Information: Patient Exam Limitations: No Limitations History of Present Illness Date Seen by Provider: Aug 01, 2022 Time Seen by Provider: 16:10 Initial Comments This 46-year-old woman with history of rather severe anemia presents to the emergency room with complaint of hemoglobin of 6.1 drawn on outpatient lab this afternoon. She has had some shortness of breath, weakness, and fatigue. She had a syncopal episode on Thursday (2 days ago) and was taken to the emergency room at [place]. See detailed note from that visit for more information. She has pending endoscopy with Dr. Mcdonald next week. Her last EGD and colonoscopy were in October 2020. Gastritis, hiatal hernia, polyps, and internal hemorrhoids were noted. No malignant pathology or H. pylori organisms were noted on pathology reports. Patient reports having mostly dark black tarry stools but she did have some bright red blood per rectum today. She takes omeprazole but is not consistent with it. She denies taking any blood thinning medications. 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 Allergies and Home Medications Allergies Coded Allergies: cephalexin (Verified Allergy, Intermediate, rash, 08/25/19) latex (Unverified Allergy, Intermediate, HIVES AND SWELLING, 08/25/19) Patient Home Medication List Home Medication List Reviewed: Yes Bupropion HCl (Wellbutrin Sr) Unknown Strength Tablet.er, Unknown Dose PO DAILY, (Reported) Entered as Reported by: ATUL DRAPER on 05/30/19 1045 Ferrous Sulfate (Iron) 325 Mg Tablet, 325 MG PO DAILY, (Reported) Entered as Reported by: ATUL DRAPER on 05/30/19 1045 Hydrochlorothiazide (Hydrochlorothiazide) 12.5 Mg Tablet, 12.5 MG PO DAILY, (Reported) Entered as Reported by: ATUL DRAPER on 05/30/19 1105 Hydrocodone Bit/Acetaminophen (HYDROcodone/APAP 10/325 TABLET) 1 Ea Tab, 1 TAB PO Q6H Prescribed by: AN MCDONALD on 08/31/19 1056 Losartan Potassium (Losartan Potassium) 50 Mg Tablet, 50 MG PO DAILY, (Reported) Entered as Reported by: ATUL DRAPER on 05/30/19 1106 Omeprazole (Omeprazole) 40 Mg Capsule.dr, 40 MG PO DAILY, (Reported) Entered as Reported by: ATUL DRAPER on 05/30/19 1106 Sucralfate (Sucralfate) 1 Gram Tablet, 1 GM PO ACHS Prescribed by: PARMINDER ZHANG on 07/30/22 0919 Sumatriptan Succinate (Imitrex) 50 Mg Tab, 50 MG PO UD Prescribed by: TIERA HEBERT on 11/23/192221 Review of Systems Review of Systems Constitutional: see HPI EENTM: No Symptoms Reported Respiratory: See HPI Cardiovascular: See HPI, Syncope Gastrointestinal: See HPI Genitourinary: No Symptoms Reported Musculoskeletal: no symptoms reported Skin: no symptoms reported Psychiatric/Neurological: No Symptoms Reported Endocrine: No Symptoms Reported Hematologic/Lymphatic: See HPI Past Gvhhjyj-Hrugbr-Laotys Hx Patient Social History Tobacco Use?: No Use of E-Cig and/or Vaping dev: No Substance use?: No Alcohol Use?: No Immunizations Up To Date Influenza Vaccine Up-to-Date: No; Not Current Seasonal Allergies Seasonal Allergies: Yes Past Medical History Surgery/Hospitalization HX: HYSTERECTOMY TUBAL LIGATION COLON RESECTION GALL BLADDER HYPERTENSION Surgeries: Yes (Right hemicolectomy) Bowel Surgery (Right hemicolectomy, polypectomy, benign colon tumor resection), Gallbladder, Hysterectomy, Tonsillectomy, Tubal Ligation Respiratory: Yes Chronic Bronchitis Currently Using CPAP: No Currently Using BIPAP: No Cardiac: Yes Hypertension Neurological: Yes Headaches /Migraines Reproductive Disorders: Yes (HYPERMENORRHEA, METROMENORRHAGIA, ANEMIA) Female Reproductive Disorders: 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 Sexually Transmitted Disease: No HIV/AIDS: No Genitourinary: No Gastrointestinal: Yes (cecal mass) Gastroesophageal Reflux, Chronic Constipation Musculoskeletal: Yes Chronic Back Pain Endocrine: No HEENT: Yes (GLASSES) Loss of Vision: Denies Hearing Impairment: Denies Cancer: No Psychosocial: Yes Anxiety, Depression Integumentary: No Blood Disorders: Yes (anemia) Adverse Reaction/Blood Tranf: No (N/A) Family Medical History NEROFIBROMATOUS 19 MOTHER Neoplasm 19 FATHER (INTESTINAL CA AND LUNG CA) Physical Exam Vital Signs Vital Signs - First Documented 08/01/22 08/01/22 15:28 17:07 Temp 36.4 Pulse 64 Resp 16 B/P (MAP) 169/88 (115) Pulse Ox 98 O2 Delivery Nasal Cannula O2 Flow Rate 2.00 Capillary Refill : Height/Weight/BMI Height: 5'8.00" Weight: 207lbs. 0.0oz. [id number]; 33.00 BMI Method: General Appearance: WD/WN, no apparent distress HEENT: normal ENT inspection Neck: normal inspection Respiratory: lungs clear, normal breath sounds, no respiratory distress Cardiovascular: regular rate, rhythm, no edema, no murmur Gastrointestinal: non tender, soft Progress/Results/Core Measures Results/Orders My Orders Orders - AL ROWAN MD Red Cells Leukocytes Reduced (08/01/22 16:11) Type And Screen (08/01/22 16:11) Ns Iv 1000 Ml (Sodium Chloride 0.9%) (08/01/22 16:51) Medications Given in ED Current Medications Medications Dose Ordered Sig/[place] Route Start Time Stop Time Status Last Admin Dose Admin Sodium Chloride 1,000 ml @ ud STK-MED ONCE .ROUTE 08/01/22 16:51 08/01/22 16:55 DC 08/01/22 17:11 0 MLS/HR Vital Signs/I&O 08/01/22 08/01/22 08/01/22 08/01/22 15:28 17:07 17:10 17:26 Temp 36.4 36.4 36.2 Pulse 64 80 80 67 Resp 16 16 18 B/P (MAP) 169/88 (115) 135/70 135/70 134/68 Pulse Ox 98 100 100 100 O2 Delivery Nasal Cannula Nasal Cannula O2 Flow Rate 2.00 08/01/22 08/01/22 08/01/22 17:41 18:05 18:17 Temp 36.4 36.4 36.4 Pulse 73 72 72 Resp 14 18 14 B/P (MAP) 140/84 152/85 152/83 Pulse Ox 100 100 Blood Pressure Mean: 115 Departure Impression Primary Impression: Severe anemia Additional Impression: Melena Disposition: 01 HOME, SELF-CARE Condition: Improved Departure-Patient Inst. Decision time for Depature: 18:24 Referrals: ROB NAYLOR APRN (PCP/Family) Primary Care Physician Patient Instructions: Blood Transfusion, Gastrointestinal Bleeding Add. Discharge Instructions: Continue taking omeprazole 40 mg daily. Add Pepcid (or generic famotidine) 20 mg twice daily. Also taking the Carafate (sucralfate) prescribed earlier in the week. Chew to make a slurry or dissolve in a small amount of water to make a slurry. Take 30 minutes before meals and bedtime 4 times daily. This provides a physical barrier on your esophagus and stomach that protects it from acid. Take these medications every day even if you are feeling well. It is important to be consistent with these medications daily to help your gastrointestinal tract heal. Follow-up with Dr. Mcdonald as soon as possible to obtain repeat upper endoscopy and colonoscopy. Avoid the following: Eating large meals, eating close to bedtime, caffeine, chocolate, carbonation, citrus fruits and juices, tomato products, alcohol, tobacco, spicy foods, mints, NSAID medications such as ibuprofen and naproxen, fatty/greasy foods, and anything else you know irritates your stomach. Return to the emergency room if you have worsening symptoms despite following these instructions. All discharge instructions reviewed with patient and/or family. Voiced understanding. AL ROWAN MD Aug 01, 2022 16:36
[2022-08-01] MEDS ORDERED: NS IV 1000 ML 1,000 ML ONE (16:51)
== END 2022-08-01 18:42 | disposition home or self-care (01) ==
LOC: EDUNIT# 15:18 → ER 15:20
DX: D64.9 Anemia, unspecified (principal); K92.1 Melena; Z91.040 Latex allergy status; Z28.310 Unvaccinated for COVID-19
CPT/HCPCS: 36430; 86850; 86900; 86901; 86920; 99285; P9016

== ENCOUNTER → 2022-08-01 | Outpatient (CLI) | payer BC ==
[~2022-08-01] MED LIST changes: +AMIT25TA9 PO; +AMLO-250 PO; +BUPR300T98 PO; +CLIN-144 PO; +ESCI20TA39 PO; +FAMO10TA43 PO; +MTP100TCR PO; +MULT-1136 PO; +NF-ESOM40C PO
[2022-08-01 13:59] LABS: BASOPHILS % (AUTO) 0 % (0-10); EOSINOPHILS # (AUTO) 0.1 10^3/uL (0.0-0.3); EOSINOPHILS % (AUTO) 1 % (0-10); HEMATOCRIT 20 % (35-52); HEMOGLOBIN 6.1 g/dL (11.5-16.0); LYMPHOCYTES # (AUTO) 2.7 10^3/uL (1.0-4.0); LYMPHOCYTES % (AUTO) 25 % (12-44); MEAN CORPUSCULAR HEMOGLOBIN 25 pg (25-34); MEAN CORPUSCULAR HGB CONC 31 g/dL (32-36); MEAN CORPUSCULAR VOLUME 80 fL (80-99); MEAN PLATELET VOLUME 11.5 fL (9.0-12.2); MONOCYTES # (AUTO) 0.9 10^3/uL (0.0-1.0); MONOCYTES % (AUTO) 8 % (0-12); NEUTROPHILS # (AUTO) 7.1 10^3/uL (1.8-7.8); NEUTROPHILS % (AUTO) 65 % (42-75); PLATELET COUNT 264 10^3/uL (130-400)
== END ==
LOC: LAB FS 13:44
PROVIDERS: ATTEND Nurse Practitioner Family
DX: D64.9 Anemia, unspecified (principal)
CPT/HCPCS: 36415; 85025

== ENCOUNTER 2022-08-06 09:21 | Outpatient (CLI) | payer BC ==
[~2022-08-06] VITALS: Ht 167.6 cm; Wt 97.5 kg
[2022-08-06] MEDS ORDERED: ESCI20TA39 PO (09:56)
[2022-08-06] MEDS ORDERED: CLIN-144 PO (09:56)
[2022-08-06] MEDS ORDERED: AMIT25TA9 PO (09:56)
[2022-08-06] MEDS ORDERED: HYDR25TA4 PO (09:56)
[2022-08-06] MEDS ORDERED: FAMO10TA43 PO (09:56)
[2022-08-06] MEDS ORDERED: NF-ESOM40C PO (09:56)
[2022-08-06] MEDS ORDERED: MTP100TCR PO (09:56)
[2022-08-06] MEDS ORDERED: MULT-1136 PO (09:56)
[2022-08-06] MEDS ORDERED: BUPR300T98 PO (09:56)
[2022-08-06] MEDS ORDERED: SUCR1TAB36 PO (09:56)
[2022-08-06] MEDS ORDERED: AMLO-250 PO (09:56)
== END 2022-08-06 09:59 ==
LOC: PREOP 09:21
PROVIDERS: ATTEND Surgery
DX: Z01.818 Encounter for other preprocedural examination (principal)

== ENCOUNTER 2022-08-11 09:43 | Day surgery (SDC) | payer BC ==
[~2022-08-11] VITALS: Ht 167.6 cm; Wt 97.5 kg
[~2022-08-11 09:43] MED LIST changes: +AMIT25TA9 PO; +AMLO-250 PO; +BUPR300T98 PO; +CLIN-144 PO; +ESCI20TA39 PO; +FAMO10TA43 PO; +MTP100TCR PO; +MULT-1136 PO; +NF-ESOM40C PO
[2022-08-11] MEDS ORDERED: LACTATED RINGERS 1,000 ML IV STA (09:45)
[2022-08-11] MEDS ORDERED: HURRICAINE EXT TUBE (BENZOCAINE) XX PRN (09:45)
--- NOTE | 2022-08-11 09:54 | Progress Note-Pre Operative ---
Pre-Operative Progress Note Date of Available H&P: Aug 05, 2022 Date H&P Reviewed: Aug 11, 2022 Time H&P Reviewed: 09:53 History & Physical: H&P Reviewed, Patient Examed, No changes noted Pre-Operative Diagnosis: Anemia, Hematochezia, melena AN MCDONALD DO Aug 11, 2022 09:54
[2022-08-11] MEDS ORDERED: PROPOFOL INJECTION 50 ML IV ONE (09:55)
[2022-08-11] MEDS ORDERED: LACTATED RINGERS 1,000 ML IV ONE (09:55)
[2022-08-11] MEDS ORDERED: HURRICAINE EXT TUBE (BENZOCAINE) ONE (09:55)
[2022-08-11] MEDS ORDERED: MIDAZOLAM 2 MG/2 ML (VERSED) VIAL ONE (09:55)
[2022-08-11 10:00] VITALS: BP 163/78
[2022-08-11 10:35] VITALS: BP 131/57
--- NOTE | 2022-08-11 10:35 | Anesthesia-General Post-Op ---
MAC Patient Condition Mental Status/LOC: Same as Preop Cardiovascular: Satisfactory Nausea/Vomiting: Absent Respiratory: Satisfactory Pain: Controlled Complications: Absent Post Op Complications Complications None Follow Up Care/Instructions Patient Instructions None needed. Anesthesiology Discharge Order Discharge Order Patient is doing well, no complaints, stable vital signs, no apparent adverse anesthesia problems. No complications reported per nursing. ARIANE NEWMAN CRNA Aug 11, 2022 10:35
--- NOTE | 2022-08-11 10:39 | Progress Note-Post Operative ---
Post-Operative Progess Note Surgeon (s)/Weaving Machine Operator (s) Surgeon AN MCDONALD DO Weaving Machine Operator: Ilir Torres, MSIII Pre-Operative Diagnosis Anemia, Hematochezia, melena Post-Operative Diagnosis Gastritis Small hiatal hernia Polyps diverticula int hemorrhoids Procedure & Operative Findings Date of Procedure 08/11/22 Procedure Performed/Findings EGD with biopsy Colonoscopy with hot biopsy PROCEDURE NOTE: After informed consent was obtained, the patient was brought to the endoscopy suite, placed in bed in left lateral decubitus position. She was administered IV sedation by the MAIL DISTRIBUTION CLERK who then monitored vitals the entire time, heart rate, blood pressure and pulse ox and the scope was inserted down the mouth through the esophagus into the stomach. Pushed into the stomach, noted some mild gastritis, pushed past the antrum into the duodenum. Duodenum looked good. Pulled back and did a biopsy of the antrum, then retroflexed the scope, saw very small hiatal hernia, took a picture of this and then pulled the scope into the GE junction and then did a biopsy of the GE junction. Pushed the scope back into the stomach, suctioned all the air out of the stomach. At this point pulled the scope up the esophagus and out the mouth. Switched camera, switched gloves, went down below and started the colonoscopy. Pushed all the way to about 110 cm and pushed to the anastomosis; pt had previous Right Hemicolectomy. Noted the terminal ileum, as well as what looked like multiple polyps. I elected to do a hot biopsy of a couple of these polyps. Then slowly withdrew the scope insufflating to look circumferentially at the portillo starting in the transverse colon, to the splenic flexure, into the descending colon; where I saw another polyp and also removed it with hot biopsy. Continued down into the sigmoid, where I saw one early diverticula and then into the rectal vault. I retroflexed the scope and took a picture of the internal hemorrhoids. The patient tolerated the procedure and she recovered in the endoscopy suite. Recommended for repeat colonoscopy in 5 years Anesthesia Type IV sedation by MAIL DISTRIBUTION CLERK Estimated Blood Loss Estimated blood loss (mL): scant Specimens/Packing Specimens Removed antral bx GE jxn bx Transverse colon polyp desc colon polyp AN MCDONALD DO Aug 11, 2022 10:39
[2022-08-11 10:40] VITALS: BP 134/61
--- NOTE | 2022-08-11 10:40 | Endoscopy Discharge Instruct ---
Endo Procedure/Findings Findings 1.: Gastritis 2.: Hiatal Hernia 3.: Polyp 4.: Diverticulosis, Internal Hemorrhoids Discharge Instructions - Activity: You might feel a little sleepy until tomorrow. This is due to the medicine you received to relax you. Until tomorrow, you should: NOT drive a car, operate machinery or power tools. NOT drink any alcoholic beverages. NOT make any important decisions or sign importortant papers. Do not return to work until tomorrow, unless otherwise instructed. Resume previous activities tomorrow. Diet: Start by taking liquids. If you tolerate liquids, advance to solid food. 1.: EGD in 3 years 2.: Colonscopy in 5 years Notify Physician - If you experience excessive bleeding, unusual abdominal pain, fever, or chest pain, contact your doctor immediately. AN MCDONALD DO Aug 11, 2022 10:40
[2022-08-11 11:00] VITALS: BP 121/69
[2022-08-11 11:30] VITALS: BP 121/69
== END 2022-08-11 11:30 | disposition home or self-care (01) ==
LOC: ENDO 09:43
PROVIDERS: ATTEND Surgery
DX: D12.3 Benign neoplasm of transverse colon (principal); D12.4 Benign neoplasm of descending colon; K57.30 Diverticulosis of large intestine without perforation or abscess without bleeding; K29.50 Unspecified chronic gastritis without bleeding; K44.9 Diaphragmatic hernia without obstruction or gangrene; Z28.310 Unvaccinated for COVID-19; E66.9 Obesity, unspecified; Z68.34 Body mass index [BMI] 34.0-34.9, adult; D50.9 Iron deficiency anemia, unspecified